=== PATIENT | female | born 1955 | race African-American/Black ===

== ENCOUNTER 2021-04-02 19:47 | Inpatient (IN) | payer OTHER, SELFPAY ==
--- NOTE | ~2021-04-02 | XR_ITS ---
XR chest 1V portable 04/06/2021 10:02 Indication: CHF. Shortness of breath. Procedure: AP portable chest Comparison: 04/02/2021 Findings: Moderate cardiomegaly with pulmonary vascular congestion. There is right basilar atelectasi s. No significant effusion or pneumothorax. No acute osseous abnormality. Impression: 1: Cardiomegaly with pulmonary vascular congestion. 2: Right basilar atelectasis. Reviewed, dictated and finalized at location A. Impression: 1: Cardiomegaly with pulmonary vascular congestion. 2: Right basilar atelectasis.
--- NOTE | ~2021-04-02 | XR_ITS ---
XR chest 2V DATE: 04/11/2021 09:11 INDICATION: Shortness of breath. COPD. TECHNIQUE: AP and lateral views COMPARISON: 04/06/2021 portable AP chest 08/26/2017 two-view chest 08/20/2017 CT pulmonary scan FINDINGS: There is bilateral hyperinflation. There is mild infiltrate or atelectasis at the lung base s, left greater than right. The lungs otherwise appear clear. No pleural effusion or pneumothorax. There is chronic severe cardiomegaly. There is aortic arch calcification. IMPRESSION: Severe cardiomegaly Mild infiltrate or atelectasis in the lung zones, left greater than right Reviewed, dictated and finalized at location A.
--- NOTE | ~2021-04-02 | CT_ITS ---
EXAMINATION: CT brain wo con DATE: 04/05/2021 12:16 INDICATION: Headache. Vision change. TECHNIQUE: Computed tomography (CT) of the head was performed without intravenous contrast. The mA wa s adjusted according to patient size. Iterative reconstruction technique was employed. The dose-lengt h product was 605.33 mGy-cm. COMPARISON: None FINDINGS: There is no intracranial hemorrhage, acute infarction, or abnormal intracranial mass lesion . There are scattered areas of low attenuation in the cerebral white matter, which is within normal l imits for the patient's age. The ventricles are normal in size. The orbits are normal. There is mucos al thickening in the paranasal sinuses including near complete opacification of left maxillary sinus. There is thickening and sclerosis of the bo of left maxillary sinus, consistent with chronic sinu sitis. The mastoid air cells are normal. The orbits are normal. IMPRESSION: 1. Normal aging brain. 2. Chronic sinusitis. Reviewed, dictated and finalized at location B.
--- NOTE | ~2021-04-02 | XR_ITS ---
EXAMINATION: XR chest 2V DATE: 04/02/2021 21:14 INDICATION: Chest pain, shortness of breath and congestive heart failure. TECHNIQUE: frontal and lateral views of the chest were obtained. COMPARISON: Chest radiograph dated 08/26/2017 FINDINGS: Moderate cardiomegaly with pulmonary vascular congestion. Small bilateral pleural effusions. No defin itive pulmonary edema. No pneumothorax. Atherosclerotic aorta. Mild thoracic spondylosis. IMPRESSION: 1. Moderate cardiomegaly with pulmonary vascular congestion but without lynn pulmonary edema. 2. Small bilateral pleural effusions. Reviewed, dictated and finalized at location A. IMPRESSION: 1. Moderate cardiomegaly with pulmonary vascular congestion but without lynn p ulmonary edema. 2. Small bilateral pleural effusions.
--- NOTE | 2021-04-02 20:44 | ECG_ITS ---
Measurements Intervals [place] Rate: 87 P: MA: 0 QRS: 176 QRSD: 106 T: 98 QT: 400 QTc: 483 Interpretive Statements ATRIAL FIBRILLATION INCOMPLETE RIGHT BUNDLE BRANCH BLOCK LOW VOLTAGE- DIFFUSE LEADS POOR R WAVE PROGRESSION, ANTERIOR LEADS BORDERLINE T WAVE ABNORMALITY- ANT/HIGH LAT LEADS BASELINE WANDER- I, II ABNORMAL ECG Electronically Signed On 04-03-2021 6:08:14 CDT by Michel Hare D.O.
[2021-04-02 20:45] VITALS: PULSE 58; RESP 18; TEMP 36.6; O2SAT 100
[2021-04-02 21:21] LABS: Basophils Percent Auto 0.2 % (0.2-1.2); Hematocrit 23.8 % (37.0-47.0); Immature Granulocyte Absolute 0.01 K/mm3 (0.00-0.031); Immature Granulocyte Percent A 0.2 % (0-0.5); Lymphocytes Absolute Auto 0.64 K/mm3 (0.9-3.2); Lymphocytes Percent Auto 12.7 % (18.3-44.2); Mean Corpuscular HGB Conc 28.6 g/dl (32-36); Mean Corpuscular Hemoglobin 28.9 pg (26-34); Mean Corpuscular Volume 101.3 fl (80-100); Mean Platelet Volume 9.5 fl (7.4-10.4); Monocytes Absolute Auto 0.4 K/mm3 (0.1-0.6); Neutrophils Percent Auto 78.9 % (45.5-73.1); Platelet Count Result 175 k/mm3 (150-375); Red Blood Count 2.35 M/mm3 (4.2-5.4); Red Cell Distribution Width 16.1 % (11.5-14.5)
[2021-04-02 21:30] LABS: INR 1.2; Prothrombin Time 15.2 Seconds (11.1-14.7)
[2021-04-02 21:31] LABS: Partial Thromboplastin Time 36.5 SECONDS (22.3-36.8)
[2021-04-02 21:37] LABS: Anion Gap 4 mmol/L (8-16); Blood Urea Nitrogen 62 mg/dL (7-17); Calcium 9.2 mg/dL (8.4-10.2); Carbon Dioxide 37 mmol/L (22-30); Chloride 99 mmol/L (98-107); Estimated Glomerular Filt Rate 37; Glucose 97 mg/dL (65-110); Potassium 4.2 mmol/L (3.4-5.0); Sodium 140 mmol/L (137-145)
[2021-04-02 21:48] LABS: Troponin I 0.034 ng/mL (0.000-0.034)
[2021-04-02 21:50] LABS: Hemoglobin 6.8 g/dL (12.0-15.0); Platelet Estimate Adequate (Adequate)
[2021-04-02 21:51] LABS: Hypochromasia 1+ (NORMAL)
--- NOTE | 2021-04-02 23:31 | PC.NURSE ---
Assumed care of pt at this time. Pt alert and upright on stretcher, A&Ox4.
[2021-04-02 23:32] VITALS: BP 113/60; PULSE 82; RESP 20; O2SAT 100
--- NOTE | 2021-04-02 23:52 | ED.SOB ---
HPI - SOB/Dyspnea General Chief Complaint: Chest Pain Stated Complaint: Lower extremity swelling, headache Time Seen by Provider: 04/02/21 22:55 Source: patient Limitations: clinical condition History of Present Illness HPI Narrative: 65-year-old female Poor historian, does not know her medications, did not bring them with her, not sure what her exact medical diagnoses are Her only records here from about 4 years ago and include CHF with a EF of 45 to 50% and atrial fibrillation She does have a doctor at [place] and it sounds like she may have been hospitalized there recently, she says that she was found recently to have anemia and she thought some polyps in her stomach which they attempted to address but were unsuccessful in doing so to the best of her knowledge Here her lithographic printing machinist had been Dr. Rao who is apparently unfortunately no longer on staff She notes that she has been more short of breath both at rest and with exertion and his swollen up a great deal more than is typical for her She does not recall having had any chest pains and does not complain of a fever or cough Related Data Home Medications Medication Instructions Recorded Confirmed Unable to Obtain Home Medications 04/02/21 Allergies Allergy/AdvReac Type Severity Reaction Status Date / Time ceftriaxone Allergy Severe Anaphylactic Verified 04/02/21 23:35 Shock Review of Systems Review of Systems: All systems reviewed & are unremarkable except as noted in HPI and below Constitutional: Constitutional: Denies chills, Reports fatigue, Denies fever(s) and Reports weakness Cardiovascular: Cardiovascular: Denies chest pain Respiratory: Respiratory: Reports chest congestion, Denies cough, Reports dyspnea and Reports wheezing Gastrointestinal: Gastrointestinal: Denies diarrhea, Denies nausea and Denies vomiting Musculoskeletal: Musculoskeletal: Reports myalgias and Reports joint swelling Neurologic: Denies headache(s) and Denies focal weakness Exam Const: General: cooperative, alert and ill appearing Nutritional Appearance: obese HENMT: Head: normal to inspection, normocephalic, atraumatic, no contusions and no hematomas Ears: external ears normal General nose exam: no epistaxis Eyes: Conjunctivae: conjunctivae normal EOM: EOMs intact bilaterally Neck: Neck: normal visual inspection, supple and no JVD Resp: Effort & Inspection: not labored Auscultation: rales, no rhonchi, wheezes and other (BS =) Cardio: Rhythm: abnormal rhythm irregularly irregular Heart sounds: no murmurs GI: GI Palp: Yes Soft to palpation, No Tenderness to palpation present (GI) and No Guarding due to palpation present (GI) Skin: General skin exam: normal color and no rashes or lesions noted Neuro: General: moves all extremities Speech: normal speech Extrem: Other: General Arti Alee with 3-4+ edema of both legs presacral edema may be even trace edema of her lower arms Psych: Affect: normal affect Course Vital Signs Vital signs: Vital Signs Temperature 36.6 C 04/02/21 20:45 Pulse Rate 58 L 04/02/21 20:45 Respiratory Rate 18 04/02/21 20:45 Pulse Oximetry 100 04/02/21 20:45 Temperature 36.6 C 04/02/21 20:45 Pulse Rate 82 04/02/21 23:32 Respiratory Rate 20 04/02/21 23:32 Blood Pressure 113/60 04/02/21 23:32 Pulse Oximetry 100 04/02/21 23:32 MDM - SOB/Dyspnea Lab Data Result diagrams: 04/02/21 21:00 04/02/21 21:00 Labs: Lab Results 04/02/21 04/02/21 04/02/21 Range/Units 21:00 21:00 21:00 WBC 5.0 (4.5-10.0) K/mm3 RBC 2.35 L (4.2-5.4) M/mm3 Hgb 6.8 L* (12.0-15.0) g/dL Hct 23.8 L (37.0-47.0) % MCV 101.3 H (80-100) fl MCH 28.9 (26-34) pg MCHC 28.6 L (32-36) g/dl RDW 16.1 H (11.5-14.5) % Plt Count 175 (150-375) k/mm3 MPV 9.5 (7.4-10.4) fl Immature Gran % (Auto) 0.2 (0-0.5) % Neut % (Auto) 78.9 H (45.5-73.1)
[2021-04-03] VITALS (17 sets, daily range): BP systolic 103–132; BP diastolic 61–79; PULSE 73–90; RESP 18–19; TEMP 36–36.4; O2SAT 95–100; BMI 36.6
[2021-04-03] MEDS: BUMETANIDE INJ 1 MG/4 ML VIAL 2 MG IV PUSH
--- NOTE | 2021-04-03 | ECHO_ITS ---
Patient Info Name: Thelma Johnson Age: 65 years : 1955 Gender: Female Ht: 64 in Wt: 213 lbs BSA: 2.13 m2 HR: 72 bpm BP: 144 / 73 mmHg Heart Rhythm: Atrial Fibrillation Technical Quality: Good Exam Date: 04/03/2021 12:55 PM Exam Location: [facility] Pulmonary Exam Room: 348 Patient Status: Outpatient Admit Date: 04/03/2021 Staff Ordering Physician: Taylor Mills MD Hydrometer Finisher: Jacqueline Alvarenga RDCS Attending Provider: Boyd Vazquez MD Referring Physician: Gene MILLS; Exam Type: CA echo doppler color flow Study Info Indications R60.9 - Edema, unspecified R06.02 - Shortness of breath - AFIB Complete two-dimensional, color flow and Doppler transthoracic echocardiogram is performed. Summary 1. Complete two-dimensional, color flow and Doppler transthoracic echocardiogram is performed. 2. Normal left ventricular size and thickness. Abnormal septal motion secondary to pulmonary hypertension with flattening of the septum during systole and diastole. No focal wall motion abnormality seen. Visual estimated ejection fraction is 50-55%, measured is 42%. Diastolic dysfunction, grade 2, is present. 3. Right ventricular chamber dimension is severely enlarged with moderate hypokinesis. . 4. Left atrial chamber dimension is severely enlarged. 5. Right atrial chamber dimension is severely enlarged. 6. There is mild mitral valve regurgitation. 7. There is mild pulmonic regurgitation. 8. There is severe tricuspid valve regurgitation. 9. Severe pulmonary hypertension, estimated pulmonary arterial systolic pressure is 67 mmHg. 10. Dilated inferior vena cava with no collapse upon inspiration consistent with significantly elevated right atrial pressure, 10 mmHg. 11. There is small pericardial effusion, primarily posteriorly, measuring in general 0.8-1.2 cm thick with a pocket of 1.9 cm thickness near the right atrium. No evidence of tamponade. 12. Atrial fibrillation. Left Ventricle Left ventricular chamber dimension is normal. Left ventricular systolic function is normal, estimated at 50-55%. There is no increased left ventricular wall thickness. Left ventricular septal wall motion is normal. The left ventricular diastolic function is grade II diastolic dysfunction. Right Ventricle Right ventricular chamber dimension is severely enlarged with moderate hypokinesis. . Right ventricular systolic function is reduced. Left Atria Left atrial chamber dimension is severely enlarged. Right Atria Right atrial chamber dimension is severely enlarged. Aortic Valve The aortic valve is trileaflet. There is no aortic valve sclerosis. There is no aortic valve stenosis. There is no aortic valve regurgitation. Pulmonic Valve The pulmonic valve is normal. There is no pulmonic valve stenosis. There is mild pulmonic regurgitation. Mitral Valve The mitral valve has thickened leaflets. There is no mitral valve stenosis. There is mild mitral valve regurgitation. Tricuspid Valve The tricuspid valve leaflets are normal. There is no significant tricuspid valve stenosis. There is severe tricuspid valve regurgitation. Severe pulmonary hypertension, estimated pulmonary arterial systolic pressure is 67 mmHg. Pericardium/Pleural The pericardium appears normal. There is small pericardial effusion, primarily posteriorly, measuring in general 0.8-1.2 cm thick with a pocket of 1.9 cm thickness near the right atrium. No evidence of tamponade.
--- NOTE | 2021-04-03 01:05 | PC.NURSE ---
Report given to Tisha LAMB on Med/Surg. Room still being cleaned, floor will call when room is ready.
--- NOTE | 2021-04-03 01:45 | ADMGEN ---
This patient, Thelma Johnson, was admitted to Medical Room 348-01. Patient/family oriented to hospital policies and general routines including ID bracelet, bed and alarms, visiting hours, pain management, procedures, bathroom and other care routines, personal items, smoking policy, room service/diet, and visiting hours. Information on how to activate the Rapid Response Team has been discussed. Patient/Family are encouraged to report perceived risks to care and to ask questions if they do not understand what they are told or what they should do.
[2021-04-03 01:57] LABS: Alanine Aminotransferase 8 U/L (4-35); Albumin Level 3.9 g/dL (3.5-5.1); Alkaline Phosphatase 134 U/L (38-126); Aspartate Amino Transferase 31 U/L (14-36); Bilirubin,Total 0.9 mg/dL (0.2-1.3)
[2021-04-03 02:06] LABS: NT Pro B Type Natriuretic Pept 13200 pg/mL (5-100)
[2021-04-03 03:26] LABS: Troponin I 0.031 ng/mL (0.000-0.034)
--- NOTE | 2021-04-03 06:16 | PM.IMHP ---
H&P: HPI History of Present Illness Date/Time: 04/03/21 06:16 Chief Complaint: shortness of breath Narrative: 65-year-old female who presents to the ER today with increasing shortness of breath and leg swelling. She states she has not been feeling well for quite some time and because of worsening shortness of breath she has not been ambulatory as much. She also states she gets chest tightness on and off. She has history of congestive heart failure with ejection fraction of 45-50% and chronic atrial fibrillation sees Dr. Stiles. patient is a poor historian. She was recently admitted at [facility] for anemia as well and she has received transfusion. In the ER she was noted to have hemoglobin of 6.8 and creatinine 1[place]7 [place] [address] she is getting admitted for further evaluation management. Review of Systems Review of Systems: - CONSTITUTIONAL: Denies weight loss, fever and chills. - HEENT: Denies changes in vision and hearing - RESPIRATORY: reports SOB and denies cough. - CV: Denies palpitations and reports CP. - GI: Denies abdominal pain, nausea, vomiting and diarrhea. - : Denies dysuria and urinary frequency. - MSK: Denies myalgia and joint pain. - SKIN: Denies rash and pruritus. - NEUROLOGICAL: Denies headache and syncope. - PSYCHIATRIC: Denies recent changes in mood. Denies anxiety and depression. All systems reviewed & are unremarkable except as noted in HPI and below Constitutional: Constitutional: Reports fatigue and Reports weakness Neurologic: Reports weakness Endocrine: Endocrine: Reports fatigue [facility] Past Medical History Medical History (Updated 04/03/21 @ 15:25 by Taylor Mills MD) Adrenal insufficiency longstanding, takes home steroids Chronic atrial fibrillation Chronic diastolic CHF (congestive heart failure) Chronic kidney disease, stage 3 Cirrhosis COPD (chronic obstructive pulmonary disease) History of TIA (transient ischemic attack) Iron deficiency anemia endoscopy 01/2021 at [place] showed gastric and colonic angioectasias. 6 units packed cells that admission, Eliquis discontinued. Pulmonary hypertension Family History Family History Other Acute myocardial infarction Mother Lung cancer Hypertension Father Throat cancer Hypertension Sibling Hypertension Sibling Hypertension Sibling Hypertension Grandparent Diabetes mellitus Social History Social History (Updated 04/03/21 @ 15:14 by Taylor Mills MD) Social History: lives with her daughter and grandchildren. Four children but 1, with multiple sclerosis, of an overdose. Smoking packs per day: 1 Smoking cigarettes per day: 20.0 Years smoked: 47 Smoking pack-years: 47.00 Smoking status: Current every day smoker Tobacco type: cigarettes Alcohol intake: never Substance use: never Substance use type: does not use Gender identity (if verbalized by the patient): Female Sexual Orientation (if Verbalized by the Patient): Straight or Heterosexual Spiritual care concerns: No Meds Home Medications and Allergies Home Medications Medication Instructions Recorded Confirmed Type acetaminophen 500 mg PO Q6H PRN 04/03/21 04/03/21 History albuterol sulfate 2 puff INHALATION QID PRN 04/03/21 04/03/21 History allopurinol 100 mg PO DAILY 04/03/21 04/03/21 History budesonide-formoterol [Symbicort] 2 puff INHALATION BID 04/03/21 04/03/21 History bumetanide 1 mg PO DAILY 04/03/21 04/03/21 History ferrous sulfate [FeroSul] 325 mg PO DAILY 04/03/21 04/03/21 History folic acid 1 mg PO DAILY 04/03/21 04/03/21 History hydrocortisone 10 mg PO BID 04/03/21 04/03/21 History ipratropium bromide [Atrovent HFA] 2 puff INHALATION QID 04/03/21 04/03/21 History metoprolol succinate [Toprol XL] 25 mg PO DAILY 04/03/21 04/03/21 History midodrine 5 mg PO TIDWM 04/03/21 04/03/21 History pantoprazole 40 mg PO DAILY 08
[2021-04-03] MEDS: BUMETANIDE INJ 1 MG/4 ML VIAL IV PUSH ×2 (06:49→18:24)
[2021-04-03] MEDS: ACETAMINOPHEN 500 MG TABLET PO ×2 (06:57→18:37)
[2021-04-03 08:35] LABS: Immature Reticulocyte Fraction 12.8 % (3.0-15.9); Reticulocyte Hemoglobin Conten 27.8 pg (28.2-35.7); Reticulocyte Percent 1.58 % (0.7-4.3); Reticulocytes Absolute 0.03 B/L (32.2-175.7)
[2021-04-03 09:10] LABS: Iron 26 ug/dL (37-170)
[2021-04-03 09:11] LABS: Bilirubin,Total 0.6 mg/dL (0.2-1.3)
[2021-04-03] MEDS: allopurinoL 100 MG TABLET PO (09:19)
[2021-04-03] MEDS: FOLIC ACID 1 MG TABLET PO (09:19)
[2021-04-03] MEDS: HYDROCORTISONE 10 MG TABLET PO ×2 (09:19→18:24)
[2021-04-03] MEDS: POTASSIUM CHLORIDE 20 MEQ TABLET.ER PO (09:19)
[2021-04-03] MEDS: FERROUS SULFATE 324 MG TABLET PO (09:19)
[2021-04-03] MEDS: MIDODRINE HCL 2.5 MG TABLET 5 MG PO ×3 (09:19→18:24)
[2021-04-03] MEDS: PANTOPRAZOLE SODIUM IV 40 MG VIAL IV PUSH (09:20)
[2021-04-03] MEDS: METOPROLOL SUCCINATE EXT REL 25 MG TABCR PO (09:20)
[2021-04-03 09:21] LABS: Percent Iron Saturation 9 % (20-50)
[2021-04-03] MEDS: SALINE 0.65% NAS SOLN 44 ML BTL 2 SPRAY NASAL ×4 (09:21→20:02)
[2021-04-03 11:55] LABS: Lactate Dehydrogenase 414 U/L (313-618)
--- NOTE | 2021-04-03 13:47 | PM.CNCAR ---
Assessment and Plan Assessment and plan (1) Acute on chronic diastolic CHF (congestive heart failure): Code(s): I50.33 - Acute on chronic diastolic (congestive) heart failure Status: Acute Assessment and Plan: Patient says she has been compliant with her diuretic and medications. Agree with IV Bumex Daily BMP Echo pending DVT prophylaxis with SCDs (2) Pulmonary hypertension: Code(s): I27.20 - Pulmonary hypertension, unspecified Status: Acute Assessment and Plan: Also has right heart failure and a history of severe pulmonary hypertension. Denies a history of sleep apnea. New echo pending. ApneaLink (3) COPD (chronic obstructive pulmonary disease): Code(s): J44.9 - Chronic obstructive pulmonary disease, unspecified Status: Acute Assessment and Plan: On home O2. Unfortunately continues to smoke. (4) Chronic atrial fibrillation: Code(s): I48.20 - Chronic atrial fibrillation, unspecified Status: Acute Assessment and Plan: Rate controlled with metoprolol succinate 25 mg daily. Eliquis discontinued in January due to severe anemia and GI bleeding. Patient continues to have significant anemia so we will avoid anticoagulation. (5) Chronic kidney disease, stage 3: Code(s): N18.30 - Chronic kidney disease, stage 3 unspecified Status: Acute Assessment and Plan: Daily BMP (6) Iron deficiency anemia: Code(s): D50.9 - Iron deficiency anemia, unspecified Status: Acute Assessment and Plan: Follow H&H (7) Chest discomfort: Code(s): R07.89 - Other chest pain Status: Acute Assessment and Plan: Has atypical chest discomfort likely due to CHF. Minimally elevated troponin, flat profile, due to CHF, no evidence of ischemic event or ACS. (8) Adrenal insufficiency: Code(s): E27.40 - Unspecified adrenocortical insufficiency Status: Acute Assessment and Plan: Has a longstanding history of adrenal insufficiency treated with hydrocortisone 10 mg b.i.d. continue steroids. (9) Low blood pressure: Code(s): I95.9 - Hypotension, unspecified Status: Acute Assessment and Plan: History of low blood pressure requiring midodrine. History of Present Illness History of Present Illness Consult date/time: 04/03/21 13:47 Consult reason: congestive heart failure Reason For Visit: chf, anemia Narrative: Date of service 04/03/2021 Thelma Johnson is a 65-year-old female whom I was asked to see at the request of the hospitalist for my advice and opinion regarding her CHF, in consultation. She is normally followed by Dr. Ozuna for her heart problems. Apparently she has a history of diastolic CHF and ejection fraction of 45-50% (EF 10/2020 was 64%) as well as chronic atrial fibrillation. The patient is a poor historian. She has chronic edema and shortness of breath with worsening edema recently, and worsening shortness of breath and a cough for 2 days. No fevers. She has had some chest pressure and heaviness which comes and goes. She states that she has not run out of any medications and is compliant with her diuretic, torsemide 20 mg daily. She follows a low-salt diet and does not drink excessive fluids. She has not noted any bleeding recently. She is on chronic home O2 at 2 L. No known sleep apnea. Old records reviewed. 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
[2021-04-03] MEDS: ALBUTEROL SULFATE (*SP) AEROSOL 1 PUFF 2 PUFF INHALATION (14:29)
--- NOTE | 2021-04-03 17:29 | P.PNIM_ITS ---
Progress Note: A&P Assessment and Plan (1) CHF (congestive heart failure): Qualifiers: Heart failure chronicity: acute on chronic Heart failure type: combined systolic and diastolic Qualified Code(s): I50.43 - Acute on chronic combined systolic (congestive) and diastolic (congestive) heart failure Code(s): I50.9 - Heart failure, unspecified Status: Acute Assessment and Plan: * Acute on chronic diastolic and systolic heart failure in exacerbation * 4+ pitting edema up to the groin bilaterally * increased shortness of breath * Fluid restriction * BNP 85691 * Echo EF 50-55 measured 42%, grade 2 diastolic dysfunction, severe pulm HTN * Bumex 2mg IV BID * Strict I&O * Consider urinary catheter * BSC * supplemental oxygen * Cardiology consult--thank you for your recommendations (2) Anemia: Qualifiers: Anemia type: iron deficiency Iron deficiency anemia type: unspecified iron deficiency Qualified Code(s): D50.9 - Iron deficiency anemia, unspecified Code(s): D64.9 - Anemia, unspecified Status: Acute Assessment and Plan: * H/H 6.8/23.8, MCV 101.3 * Probably dilutional as well considering the fluid overload * One unit PRBC (04/03/21) * Occult blood positive * GI consult thank you for your recommendation * Trend H/H * Anemia labs iron 26, TIBC 295, % sat 9, LDH 414, VB12 354, Folate 7.2 * Ferrous sulfate 325mg PO BID * Labs in the am (3) Chest pain: Code(s): R07.9 - Chest pain, unspecified Status: Acute Assessment and Plan: * Type 2 TX- non ischemic, probably related to CHF exacerbation, anemia * Trops mildly elevated * Cardiology consult * seems to be resolved at this time * Tele monitor (4) Gout: Code(s): M10.9 - Gout, unspecified Status: Acute Assessment and Plan: * will check uric acid * continue home allopurinol 100mg PO daily * monitor (5) COPD (chronic obstructive pulmonary disease): Code(s): J44.9 - Chronic obstructive pulmonary disease, unspecified Status: Acute Assessment and Plan: * Continues to smoke 1ppd * chronic respiratory failure with hypoxia * 2LNC at home * Continue home symibcort 2 puff BID, albuterol 2 puff QID PRN * Not in acute exacerbation at this time * Trend sputum * consider sputum culture (6) Acute on chronic renal failure: Code(s): N17.9 - Acute kidney failure, unspecified; N18.9 - Chronic kidney disease, unspecified Status: Acute Assessment and Plan: * BUN/Cr 62/1.70 * fluid overloaded * Trend BUN/Cr will being diuresed * Bumex 2mg IV BID * consider nephrology with worsening renal function Time Spent With Patient Time with patient: Greater than 35 minutes Subjective Date/time seen: 04/03/21 16:45 Interval history: 65-year-old female who presents to the ER today with increasing shortness of breath and leg swelling. she states that she is doing a little bit better today. She still is short of breath she said and does not think that she could get to commode on her own. She also stated that she has a headache. She also states that she has a cough which is producing a yellow thick sputum which she states is more than normal. She also stated that she is having more than normal increased swelling in bilateral lower extremities and shortness of breath is getting worse. She does continue smoke. She also states states that her legs hurt. She also st
--- NOTE | 2021-04-03 17:29 | PM.IMPN ---
Progress Note: A&P Assessment and Plan (1) CHF (congestive heart failure): Qualifiers: Heart failure chronicity: acute on chronic Heart failure type: combined systolic and diastolic Qualified Code(s): I50.43 - Acute on chronic combined systolic (congestive) and diastolic (congestive) heart failure Code(s): I50.9 - Heart failure, unspecified Status: Acute Assessment and Plan: Acute on chronic diastolic and systolic heart failure in exacerbation 4+ pitting edema up to the groin bilaterally increased shortness of breath Fluid restriction BNP 91383 Echo EF 50-55 measured 42%, grade 2 diastolic dysfunction, severe pulm HTN Bumex 2mg IV BID Strict I&O Consider urinary catheter BSC supplemental oxygen Cardiology consult--thank you for your recommendations (2) Anemia: Qualifiers: Anemia type: iron deficiency Iron deficiency anemia type: unspecified iron deficiency Qualified Code(s): D50.9 - Iron deficiency anemia, unspecified Code(s): D64.9 - Anemia, unspecified Status: Acute Assessment and Plan: H/H 6.8/23.8, MCV 101.3 Probably dilutional as well considering the fluid overload One unit PRBC (04/03/21) Occult blood positive GI consult thank you for your recommendation Trend H/H Anemia labs iron 26, TIBC 295, % sat 9, LDH 414, VB12 354, Folate 7.2 Ferrous sulfate 325mg PO BID Labs in the am (3) Chest pain: Code(s): R07.9 - Chest pain, unspecified Status: Acute Assessment and Plan: Type 2 TN- non ischemic, probably related to CHF exacerbation, anemia Trops mildly elevated Cardiology consult seems to be resolved at this time Tele monitor (4) Gout: Code(s): M10.9 - Gout, unspecified Status: Acute Assessment and Plan: will check uric acid continue home allopurinol 100mg PO daily monitor (5) COPD (chronic obstructive pulmonary disease): Code(s): J44.9 - Chronic obstructive pulmonary disease, unspecified Status: Acute Assessment and Plan: Continues to smoke 1ppd chronic respiratory failure with hypoxia 2LNC at home Continue home symibcort 2 puff BID, albuterol 2 puff QID PRN Not in acute exacerbation at this time Trend sputum consider sputum culture (6) Acute on chronic renal failure: Code(s): N17.9 - Acute kidney failure, unspecified; N18.9 - Chronic kidney disease, unspecified Status: Acute Assessment and Plan: BUN/Cr 62/1.70 fluid overloaded Trend BUN/Cr will being diuresed Bumex 2mg IV BID consider nephrology with worsening renal function Time Spent With Patient Time with patient: Greater than 35 minutes Subjective Date/time seen: 04/03/21 16:45 Interval history: 65-year-old female who presents to the ER today with increasing shortness of breath and leg swelling. she states that she is doing a little bit better today. She still is short of breath she said and does not think that she could get to commode on her own. She also stated that she has a headache. She also states that she has a cough which is producing a yellow thick sputum which she states is more than normal. She also stated that she is having more than normal increased swelling in bilateral lower extremities and shortness of breath is getting worse. She does continue smoke. She also states states that her legs hurt. She also states she is dizzy and that her head is spinning. Otherwise patient states she feels good she has no chest pain, palpitations, nausea vomiting. Review of Systems Review of Systems: All systems reviewed & are unremarkable except as noted in HPI and below Exam Const: General: cooperative, healthy appearing, no acute distress, well developed, alert and awake Nutritional Appearance: well nourished Orientation/consciousness: patient oriented x3 Limitations: no limitations HENMT: Head: loyd
[2021-04-03 18:57] LABS: Folic Acid 7.2 ng/mL (2.76->20)
[2021-04-04] VITALS (20 sets, daily range): BP systolic 103–127; BP diastolic 52–70; PULSE 65–98; RESP 14–20; TEMP 36.1–37.2; O2SAT 95–100
[2021-04-04 06:13] LABS: Basophils Percent Auto 0.4 % (0.2-1.2); Hematocrit 21.3 % (37.0-47.0); Immature Granulocyte Absolute 0.01 K/mm3 (0.00-0.031); Immature Granulocyte Percent A 0.2 % (0-0.5); Lymphocytes Absolute Auto 0.62 K/mm3 (0.9-3.2); Lymphocytes Percent Auto 13.1 % (18.3-44.2); Mean Corpuscular HGB Conc 29.1 g/dl (32-36); Mean Corpuscular Volume 99.5 fl (80-100); Mean Platelet Volume 9.6 fl (7.4-10.4); Monocytes Absolute Auto 0.5 K/mm3 (0.1-0.6); Monocytes Percent Auto 10.1 % (2.6-8.5); Neutrophils Absolute Auto 3.6 K/mm3 (1.3-6.7); Neutrophils Percent Auto 76.2 % (45.5-73.1); Platelet Count Result 164 k/mm3 (150-375); Red Blood Count 2.14 M/mm3 (4.2-5.4); Red Cell Distribution Width 15.7 % (11.5-14.5); White Blood Count 4.7 K/mm3 (4.5-10.0)
[2021-04-04 06:18] LABS: Hemoglobin 6.2 g/dL (12.0-15.0)
[2021-04-04 06:30] LABS: Anion Gap 4 mmol/L (8-16); Blood Urea Nitrogen 63 mg/dL (7-17); Calcium 8.9 mg/dL (8.4-10.2); Carbon Dioxide 35 mmol/L (22-30); Chloride 97 mmol/L (98-107); Estimated CRCL calculation 31 ml/min; Estimated Glomerular Filt Rate 32; Glucose 106 mg/dL (65-110); Potassium 4.4 mmol/L (3.4-5.0); Sodium 136 mmol/L (137-145)
[2021-04-04] MEDS: ALBUTEROL SULFATE (*SP) AEROSOL 1 PUFF 2 PUFF INHALATION (07:20)
[2021-04-04 07:26] LABS: IFOB Positive Control Positive; Immunochemical Fecal Occult Bl Positive (N)
--- NOTE | 2021-04-04 07:29 | P.PNIM_ITS ---
Progress Note: A&P Assessment and Plan (1) CHF (congestive heart failure): Qualifiers: Heart failure chronicity: acute on chronic Heart failure type: combined systolic and diastolic Qualified Code(s): I50.43 - Acute on chronic combined systolic (congestive) and diastolic (congestive) heart failure Code(s): I50.9 - Heart failure, unspecified Status: Acute Assessment and Plan: * Acute on chronic diastolic and systolic heart failure in exacerbation * 4+ pitting edema up to the groin bilaterally * increased shortness of breath * Fluid restriction * BNP 37979 (04/03/21) * Echo EF 50-55 measured 42%, grade 2 diastolic dysfunction, severe pulm HTN * Bumex 2mg IV BID * Strict I&O * Consider urinary catheter * BSC * supplemental oxygen * Cardiology consult--thank you for your recommendations (2) Anemia: Qualifiers: Anemia type: iron deficiency Iron deficiency anemia type: unspecified iron deficiency Qualified Code(s): D50.9 - Iron deficiency anemia, unspecified Code(s): D64.9 - Anemia, unspecified Status: Acute Assessment and Plan: * H/H 6.2/21.3, MCV 99.5 * Probably dilutional as well considering the fluid overload * One unit PRBC (04/03/21-04-04-21) * Occult blood positive * GI consult thank you for your recommendation * Trend H/H * Anemia labs iron 26, TIBC 295, % sat 9, LDH 414, VB12 354, Folate 7.2 * Ferrous sulfate 325mg PO BID * Labs in the am (3) Chest pain: Code(s): R07.9 - Chest pain, unspecified Status: Acute Assessment and Plan: * Type 2 HI- non ischemic, probably related to CHF exacerbation, anemia * Trops negative 0.034, 0.030, 0.031 * Cardiology consult thank you for your recommendations * seems to be resolved at this time * Tele monitor shows afib with a controlled rate (4) Gout: Code(s): M10.9 - Gout, unspecified Status: Acute Assessment and Plan: * uric acid 12.2 * continue home allopurinol 100mg PO daily * monitor (5) COPD (chronic obstructive pulmonary disease): Code(s): J44.9 - Chronic obstructive pulmonary disease, unspecified Status: Acute Assessment and Plan: * Continues to smoke 1ppd * chronic respiratory failure with hypoxia * 2LNC at home * Continue home symibcort 2 puff BID, albuterol 2 puff QID PRN * Not in acute exacerbation at this time * Trend sputum * sputum culture ordered (6) Acute on chronic renal failure: Code(s): N17.9 - Acute kidney failure, unspecified; N18.9 - Chronic kidney disease, unspecified Status: Acute Assessment and Plan: * BUN/Cr 63/1.90 * fluid overloaded * Trend BUN/Cr will being diuresed * Bumex 2mg IV BID * consider nephrology with worsening renal function (7) Smoking addiction: Code(s): F17.200 - Nicotine dependence, unspecified, uncomplicated Status: Acute Assessment and Plan: * smokes 1ppd * Nicotine 21mg transdermal * gum * smoking cessation councelling Additional Plan Subjective Date/time seen: 04/04/21 07:29 Interval history: Patient is a 65-year-old female who presented to the ED for evaluation increasing shortness of breath leg swelling. Patient stated today that her eyes hurt which started a few days ago however they she said they are getting worse. She also stated she still have a headache which I asked her if she thought maybe was relat
--- NOTE | 2021-04-04 07:29 | PM.IMPN ---
Progress Note: A&P Assessment and Plan (1) CHF (congestive heart failure): Qualifiers: Heart failure chronicity: acute on chronic Heart failure type: combined systolic and diastolic Qualified Code(s): I50.43 - Acute on chronic combined systolic (congestive) and diastolic (congestive) heart failure Code(s): I50.9 - Heart failure, unspecified Status: Acute Assessment and Plan: Acute on chronic diastolic and systolic heart failure in exacerbation 4+ pitting edema up to the groin bilaterally increased shortness of breath Fluid restriction BNP 53511 (04/03/21) Echo EF 50-55 measured 42%, grade 2 diastolic dysfunction, severe pulm HTN Bumex 2mg IV BID Strict I&O Consider urinary catheter BSC supplemental oxygen Cardiology consult--thank you for your recommendations (2) Anemia: Qualifiers: Anemia type: iron deficiency Iron deficiency anemia type: unspecified iron deficiency Qualified Code(s): D50.9 - Iron deficiency anemia, unspecified Code(s): D64.9 - Anemia, unspecified Status: Acute Assessment and Plan: H/H 6.2/21.3, MCV 99.5 Probably dilutional as well considering the fluid overload One unit PRBC (04/03/21-04-04-21) Occult blood positive GI consult thank you for your recommendation Trend H/H Anemia labs iron 26, TIBC 295, % sat 9, LDH 414, VB12 354, Folate 7.2 Ferrous sulfate 325mg PO BID Labs in the am (3) Chest pain: Code(s): R07.9 - Chest pain, unspecified Status: Acute Assessment and Plan: Type 2 FL- non ischemic, probably related to CHF exacerbation, anemia Trops negative 0.034, 0.030, 0.031 Cardiology consult thank you for your recommendations seems to be resolved at this time Tele monitor shows afib with a controlled rate (4) Gout: Code(s): M10.9 - Gout, unspecified Status: Acute Assessment and Plan: uric acid 12.2 continue home allopurinol 100mg PO daily monitor (5) COPD (chronic obstructive pulmonary disease): Code(s): J44.9 - Chronic obstructive pulmonary disease, unspecified Status: Acute Assessment and Plan: Continues to smoke 1ppd chronic respiratory failure with hypoxia 2LNC at home Continue home symibcort 2 puff BID, albuterol 2 puff QID PRN Not in acute exacerbation at this time Trend sputum sputum culture ordered (6) Acute on chronic renal failure: Code(s): N17.9 - Acute kidney failure, unspecified; N18.9 - Chronic kidney disease, unspecified Status: Acute Assessment and Plan: BUN/Cr 63/1.90 fluid overloaded Trend BUN/Cr will being diuresed Bumex 2mg IV BID consider nephrology with worsening renal function (7) Smoking addiction: Code(s): F17.200 - Nicotine dependence, unspecified, uncomplicated Status: Acute Assessment and Plan: smokes 1ppd Nicotine 21mg transdermal gum smoking cessation councelling Additional Plan Subjective Date/time seen: 04/04/21 07:29 Interval history: Patient is a 65-year-old female who presented to the ED for evaluation increasing shortness of breath leg swelling. Patient stated today that her eyes hurt which started a few days ago however they she said they are getting worse. She also stated she still have a headache which I asked her if she thought maybe was related to the nicotine withdrawal. She also stated that she is weak and tired had her legs look the same. However she reassured me that her legs would get better. It is noted that her H&H is lower today so GI was consulted. Patient has no complaints of chest pain, nausea, vomiting, diarrhea or constipation. Upon examination patient does look very tired and lethargic. Review of Systems Review of Systems: All systems reviewed & are unremarkable except as noted in HPI and below Exam Const: General: cooperative, healthy appearing, no acu
[2021-04-04] MEDS: BUMETANIDE INJ 1 MG/4 ML VIAL IV PUSH ×3 (08:23→18:04)
[2021-04-04] MEDS: FOLIC ACID 1 MG TABLET PO (08:23)
[2021-04-04] MEDS: MIDODRINE HCL 2.5 MG TABLET 5 MG PO ×3 (08:23→18:04)
[2021-04-04] MEDS: SODIUM CHLORIDE 0.9% IV 250 ML 30 ML IV CONT ×2 (08:23)
[2021-04-04] MEDS: FERROUS SULFATE 324 MG TABLET PO ×2 (08:23→18:04)
[2021-04-04] MEDS: PANTOPRAZOLE SODIUM IV 40 MG VIAL IV PUSH (08:24)
[2021-04-04] MEDS: POTASSIUM CHLORIDE 20 MEQ TABLET.ER PO (08:24)
[2021-04-04] MEDS: METOPROLOL SUCCINATE EXT REL 25 MG TABCR PO (08:24)
[2021-04-04] MEDS: allopurinoL 100 MG TABLET PO (08:24)
[2021-04-04] MEDS: HYDROCORTISONE 10 MG TABLET PO ×2 (08:24→18:05)
[2021-04-04] MEDS: SALINE 0.65% NAS SOLN 44 ML BTL 2 SPRAY NASAL ×4 (08:24→20:52)
[2021-04-04] MEDS: ACETAMINOPHEN 500 MG TABLET PO ×2 (08:25→20:53)
[2021-04-04 09:00] LABS: Uric Acid 12.2 mg/dL (2.5-7.5)
--- NOTE | 2021-04-04 11:21 | WPDGICN ---
Assessment and Plan Assessment and plan (1) Acute on chronic blood loss anemia: Code(s): D62 - Acute posthemorrhagic anemia Status: Acute Assessment and Plan: probably multifactorial, she is on iron but also noted report of AMV in stomach 2 months ago at [facility] continue with protonix will do EGD in 1-2 days, will await until exacerbation chf is improved (2) AVM (arteriovenous malformation) of stomach, acquired: Code(s): K31.819 - Angiodysplasia of stomach and duodenum without bleeding Status: Acute Assessment and Plan: will need another egd again (reviewed records) (3) Occult blood in stools: Code(s): R19.5 - Other fecal abnormalities Status: Acute (4) Acute on chronic diastolic CHF (congestive heart failure): Code(s): I50.33 - Acute on chronic diastolic (congestive) heart failure Status: Acute Assessment and Plan: on treatment by cardiology, also pulmonary htn (5) Chronic atrial fibrillation: Code(s): I48.20 - Chronic atrial fibrillation, unspecified Status: Acute Assessment and Plan: eliquis on hold given recurrent anemia (6) Pulmonary hypertension: Code(s): I27.20 - Pulmonary hypertension, unspecified Status: Acute (7) Acute on chronic renal failure: Code(s): N17.9 - Acute kidney failure, unspecified; N18.9 - Chronic kidney disease, unspecified Status: Acute GI Consult Note Consult date/time: 04/04/21 11:21 Reason for consult: FOBT +, acute on chronic blood loss anemia HPI: Thelma Johnson is a 65 year old female with history of diastolic CHF, COPD, iron deficiency anemia, longstanding adrenal insufficiency on home steroids, TIA, AFib on Eliquis (on hold now), pulmonary HTN, chronic kidney disease stage 3, hepatic cirrhosis with recent hospitalization at [facility] 2 months ago (reviewed records) for chf exacerbation and SCOTT requiring blood transfusion and iv iron. She finally had EGD/SBE and colonoscopy, found to have stigmata of bleeding from AVM in stomach treated with APC, two non-bleeding AVM in colon treated with apc (had poor colon prep) and eliquis was discontinued. She is still taking iron pills and says that stools normally dark. She is here again with worsening shortness of breath and more leg edema. Admitted for chf exacerbation and recurrent anemia, hemoglobin of 6.8 and creatinine 1[place]7 [place] [address]. Now getting again blood transfusion, had FOBT +. Review of Systems Constitutional: Constitutional: Denies chills Eyes: Eyes: Denies blurry vision ENT: Reports Normal hearing present Cardiovascular: Cardiovascular: Reports leg edema Respiratory: Respiratory: Reports dyspnea on exertion Gastrointestinal: Gastrointestinal: Denies abdominal pain Genitourinary: Genitourinary: Denies flank pain Musculoskeletal: Musculoskeletal: Denies neck pain Integumentary/Breasts: Skin/Breast: Denies dry skin Neurologic: Denies headache(s) Psychiatric: Psychiatric: Reports no additional psychiatric complaints [facility] Past Medical History Medical History (Updated 04/04/21 @ 11:31 by Stewart Yanez MD) Acute on chronic blood loss anemia Adrenal insufficiency longstanding, takes home steroids AVM (arteriovenous malformation) of stomach, acquired Chronic atrial fibrillation Chronic diastolic CHF (congestive heart failure) Chronic kidney disease, stage 3 Cirrhosis COPD (chronic obstructive pulmonary disease) History of TIA (transient ischemic attack) Iron deficiency anemia endoscopy 01/2021 at [place] showed gastric and colonic angioectasias. 6 units packed cells that admission, Eliquis discontinued. Occult blood in stools Pulmonary hypertension Family History Family History Other Acute myocardial infarction Mother Lung cancer Hypertension Father Throat cancer Hypertension Sibling Hypertension Sibling Hypertension Sibling
--- NOTE | 2021-04-04 13:09 | PM.PNCARD ---
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 with grade II diastolic LV dysfunction, sever Pulm HTN, sever TR, Acute on chronic anemia, SOB likely multifactorial for prior causes and HX of COPD, CKD, chronic AF not on OAC because of prior GI bleed, Plan cont IV diuresis, correct anemia, poor prognosis Subjective Date/time seen: 04/04/21 13:09 Interval history: continues to feel SOB with midl activity cough is worse today AF with PVCs Review of Systems Review of Systems: All systems reviewed & are unremarkable except as noted in HPI and below Exam Const: General: comfortable and no acute distress Other: Able to lie flat HENMT: General nose exam: Normal nares present and no epistaxis Mouth: Yes moist mucous membranes Eyes: Sclera: sclerae normal Pupils: Equal, round and reactive pupils present Neck: Neck: supple and JVD Carotids: no bruits Resp: Auscultation: clear to auscultation bilaterally, crackles bilateral and diffuse and diminished lung sounds bilateral Other: No chest wall tenderness Cardio: Rate: regular rate Rhythm: regular rhythm Heart sounds: no gallops, Murmur heart sound present (SM at T area) systolic and no rubs GI: GI Palp: Yes Soft to palpation and No Tenderness to palpation present (GI) Auscultation: normal bowel sounds Skin: General skin exam: normal color, rashes and/or lesions noted and no erythema Other: Warm Neuro: Cranial nerves: Yes Equal, round and reactive pupils present Speech: normal speech Other: No obvious focal deficit or facial asymmetry Extrem: General: no edema Other: Normal capillary refills Intact distal pulses. Objective Data Vital Signs Vital Signs: Vital Signs - 24 hr 04/03/21 14:00 04/03/21 16:00 04/03/21 19:26 Temperature 36.0 C L Pulse Rate 85 85 Respiratory Rate 18 Blood Pressure 113/61 Pulse Oximetry 99 99 04/03/21 20:00 04/03/21 20:05 04/03/21 23:05 Temperature 36.2 C L Pulse Rate 73 78 78 Respiratory Rate 18 Blood Pressure 132/79 Pulse Oximetry 100 96 04/03/21 23:35 04/04/21 00:00 04/04/21 04:00 Temperature Pulse Rate 77 76 Respiratory Rate Blood Pressure Pulse Oximetry 97 04/04/21 06:00 04/04/21 07:23 04/04/21 08:19 Temperature 37.1 C 36.1 C L Pulse Rate 80 80 Respiratory Rate 18 14 Blood Pressure 118/57 L 112/52 L Pulse Oximetry 100 97 100 04/04/21 08:24 04/04/21 08:30 04/04/21 09:30 Temperature 36.6 C 36.7 C Pulse Rate 80 84 87 Respiratory Rate 14 18 Blood Pressure 103/55 L 120/69 Pulse Oximetry 100 100 04/04/21 10:30 04/04/21 11:20 04/04/21 12:25 Temperature 36.6 C 36.8 C 36.6 C Pulse Rate 88 80 80 Respiratory Rate 14 16 15 Blood Pressure 114/58 L 122/68 121/70 Pulse Oximetry 100 100 100 Intake/Output Intake/Output: Intake & Output 04/01/21 04/02/21 04/03/21 04/04/21 23:59 23:59 23:59 23:59 Intake Total 745 640 Output Total 550 300 Balance 195 340 Meds/Results Medications: Active Medications Generic Name Dose Route Start Last Admin Trade Name Freq PRN Reason Stop Dose Admin Acetaminophen 500 mg 04/03/21 06:25 04/04/21 08:25 Acetaminophen 500 Mg Tablet PO 500 mg Q6H PRN Administration Pain Albuterol 2 puff 04/03/21 06:25 04/04/21 07:20 Albuterol Sulfate (*Sp) Aerosol 1 Puff INHALATION 2 puff QID PRN Administration Shortness Of Breath Or Wheezing Allopurinol 100 mg 04/03/21 09:00 04/04/21 08:24 Allopurinol 100 Mg Tablet PO 100 mg DAILY FIDEL Administration Budesonide/Formoterol Fumarate 2 puff 04/03/21 08:00 04/04/21 07:20 Budesonide/Form 160-4.5 Mcg (*Sp) INHALATION 2 puff Q12HRT FIDEL Administration Bumetanide 1 mg 04/03/21 06:00 04/04/21 08:23 Bumetanide Inj 1 Mg/4 Ml Vial IV PUSH 1 mg BID FIDEL Administration Ferrous Sulfate 324 mg 04/04/21 08:00 04/04/21 08:26 Ferrous Sulfate 324 Mg Tablet PO Not Given BIDWM [facility] Folic Acid 1 mg 04/03/21
[2021-04-04 18:04] LABS: Hematocrit 27.4 % (37.0-47.0); Hemoglobin 8.4 g/dL (12.0-15.0); Mean Corpuscular HGB Conc 30.7 g/dl (32-36); Mean Corpuscular Hemoglobin 29.2 pg (26-34); Mean Corpuscular Volume 95.1 fl (80-100); Platelet Count Result 165 k/mm3 (150-375); Red Blood Count 2.88 M/mm3 (4.2-5.4); Red Cell Distribution Width 17.2 % (11.5-14.5); White Blood Count 5.1 K/mm3 (4.5-10.0)
[2021-04-04] MEDS: guaiFENesin 12 HR 600 MG TABCR 1200 MG PO (20:51)
[2021-04-05] VITALS (11 sets, daily range): BP systolic 105–125; BP diastolic 58–90; PULSE 77–105; RESP 18–20; TEMP 36.2–37.1; O2SAT 96–100
[2021-04-05 09:26] LABS: Hematocrit 29.9 % (37.0-47.0); Hemoglobin 8.7 g/dL (12.0-15.0); Mean Corpuscular HGB Conc 29.1 g/dl (32-36); Mean Corpuscular Volume 99.7 fl (80-100); Mean Platelet Volume 9.9 fl (7.4-10.4); Platelet Count Result 170 k/mm3 (150-375); Red Cell Distribution Width 17.2 % (11.5-14.5); White Blood Count 5.9 K/mm3 (4.5-10.0)
[2021-04-05 09:44] LABS: Alanine Aminotransferase 10 U/L (4-35); Alkaline Phosphatase 124 U/L (38-126); Anion Gap 4 mmol/L (8-16); Aspartate Amino Transferase 24 U/L (14-36); Bilirubin,Total 0.9 mg/dL (0.2-1.3); Blood Urea Nitrogen 64 mg/dL (7-17); Calcium 9.3 mg/dL (8.4-10.2); Carbon Dioxide 37 mmol/L (22-30); Chloride 98 mmol/L (98-107); Estimated CRCL calculation 34 ml/min; Estimated Glomerular Filt Rate 37; Glucose 104 mg/dL (65-110); Sodium 139 mmol/L (137-145)
[2021-04-05] MEDS: MIDODRINE HCL 2.5 MG TABLET 5 MG PO ×3 (09:55→18:21)
[2021-04-05] MEDS: FERROUS SULFATE 324 MG TABLET PO ×2 (09:55→18:21)
[2021-04-05] MEDS: POTASSIUM CHLORIDE 20 MEQ TABLET.ER PO (09:55)
[2021-04-05] MEDS: HYDROCORTISONE 10 MG TABLET PO ×2 (09:56→18:22)
[2021-04-05] MEDS: allopurinoL 100 MG TABLET PO (09:56)
[2021-04-05] MEDS: BUMETANIDE INJ 1 MG/4 ML VIAL IV PUSH ×2 (09:56→14:55)
[2021-04-05] MEDS: METOPROLOL SUCCINATE EXT REL 25 MG TABCR PO (09:56)
[2021-04-05] MEDS: FOLIC ACID 1 MG TABLET PO (09:56)
[2021-04-05] MEDS: guaiFENesin 12 HR 600 MG TABCR 1200 MG PO ×2 (09:56→21:55)
[2021-04-05] MEDS: PANTOPRAZOLE SODIUM IV 40 MG VIAL IV PUSH (09:57)
[2021-04-05] MEDS: SALINE 0.65% NAS SOLN 44 ML BTL 2 SPRAY NASAL ×4 (09:57→21:55)
--- NOTE | 2021-04-05 10:51 | P.PNIM_ITS ---
Progress Note: A&P Assessment and Plan (1) CHF (congestive heart failure): Qualifiers: Heart failure chronicity: acute on chronic Heart failure type: combined systolic and diastolic Qualified Code(s): I50.43 - Acute on chronic combined systolic (congestive) and diastolic (congestive) heart failure Code(s): I50.9 - Heart failure, unspecified Status: Acute Assessment and Plan: * Acute on chronic diastolic and systolic heart failure in exacerbation * 4+ pitting edema up to the groin bilaterally * increased shortness of breath * Fluid restriction * BNP 64136 (04/03/21) [place] [address] * Echo EF 50-55 measured 42%, grade 2 diastolic dysfunction, severe pulm HTN * Bumex 2mg IV BID * Strict I&O, daily weights * supplemental oxygen maintain a saturation greater than 90% * Cardiology consult--thank you for your recommendations * continue antitussives (2) Anemia: Qualifiers: Anemia type: iron deficiency Iron deficiency anemia type: unspecified iron deficiency Qualified Code(s): D50.9 - Iron deficiency anemia, unspecified Code(s): D64.9 - Anemia, unspecified Status: Acute Assessment and Plan: * H/H 8.7/29.9 * Probably dilutional however stools were dark overnight * One unit PRBC (04/03-) * Occult blood positive * GI consult thank you for your recommendation * Trend H/H * Anemia labs iron 26, TIBC 295, % sat 9, LDH 414, VB12 354, Folate 7.2 * Ferrous sulfate 325mg PO BID * Labs in the am (3) Chest pain: Code(s): R07.9 - Chest pain, unspecified Status: Acute Assessment and Plan: * Type 2 DC- non ischemic, probably related to CHF exacerbation, anemia * Trops negative 0.034, 0.030, 0.031 * Cardiology consult thank you for your recommendations * seems to be resolved at this time * Tele monitor shows afib with a controlled rate (4) Gout: Code(s): M10.9 - Gout, unspecified Status: Acute Assessment and Plan: * uric acid 12.2 * continue home allopurinol 100mg PO daily * monitor (5) COPD (chronic obstructive pulmonary disease): Code(s): J44.9 - Chronic obstructive pulmonary disease, unspecified Status: Acute Assessment and Plan: * Continues to smoke 1ppd * chronic respiratory failure with hypoxia * 2LNC at home * Continue home Symbicort 2 puff BID, albuterol 2 puff QID PRN * Not in acute exacerbation at this time * sputum culture ordered still needs to be collected * Apnea link indicated that patient probably needs a sleep study outpatient (6) Acute on chronic renal failure: Code(s): N17.9 - Acute kidney failure, unspecified; N18.9 - Chronic kidney disease, unspecified Status: Acute Assessment and Plan: * BUN/Cr 64/1.70 trending down * fluid overloaded * Trend BUN/Cr will being diuresed * Bumex 2mg IV BID, one time bumex 1mg at 1200 * consider nephrology with worsening renal function (7) Smoking addiction: Code(s): F17.200 - Nicotine dependence, unspecified, uncomplicated Status: Acute Assessment and Plan: * smokes 1ppd * Nicotine 21mg transdermal * gum * smoking cessation councelling (8) Headache: Code(s): R51.9 - Headache, unspecified Status: Acute Assessment and Plan: * Could be from nicotine withdrawal * Patient reports visual changes as well * Nicotine patch and gum ordered * CT hea
--- NOTE | 2021-04-05 10:51 | PM.IMPN ---
Progress Note: A&P Assessment and Plan (1) CHF (congestive heart failure): Qualifiers: Heart failure chronicity: acute on chronic Heart failure type: combined systolic and diastolic Qualified Code(s): I50.43 - Acute on chronic combined systolic (congestive) and diastolic (congestive) heart failure Code(s): I50.9 - Heart failure, unspecified Status: Acute Assessment and Plan: Acute on chronic diastolic and systolic heart failure in exacerbation 4+ pitting edema up to the groin bilaterally increased shortness of breath Fluid restriction BNP 83418 (04/03/21) [place] [address] Echo EF 50-55 measured 42%, grade 2 diastolic dysfunction, severe pulm HTN Bumex 2mg IV BID Strict I&O, daily weights supplemental oxygen maintain a saturation greater than 90% Cardiology consult--thank you for your recommendations continue antitussives (2) Anemia: Qualifiers: Anemia type: iron deficiency Iron deficiency anemia type: unspecified iron deficiency Qualified Code(s): D50.9 - Iron deficiency anemia, unspecified Code(s): D64.9 - Anemia, unspecified Status: Acute Assessment and Plan: H/H 8.7/29.9 Probably dilutional however stools were dark overnight One unit PRBC (04/03-) Occult blood positive GI consult thank you for your recommendation Trend H/H Anemia labs iron 26, TIBC 295, % sat 9, LDH 414, VB12 354, Folate 7.2 Ferrous sulfate 325mg PO BID Labs in the am (3) Chest pain: Code(s): R07.9 - Chest pain, unspecified Status: Acute Assessment and Plan: Type 2 KS- non ischemic, probably related to CHF exacerbation, anemia Trops negative 0.034, 0.030, 0.031 Cardiology consult thank you for your recommendations seems to be resolved at this time Tele monitor shows afib with a controlled rate (4) Gout: Code(s): M10.9 - Gout, unspecified Status: Acute Assessment and Plan: uric acid 12.2 continue home allopurinol 100mg PO daily monitor (5) COPD (chronic obstructive pulmonary disease): Code(s): J44.9 - Chronic obstructive pulmonary disease, unspecified Status: Acute Assessment and Plan: Continues to smoke 1ppd chronic respiratory failure with hypoxia 2LNC at home Continue home Symbicort 2 puff BID, albuterol 2 puff QID PRN Not in acute exacerbation at this time sputum culture ordered still needs to be collected Apnea link indicated that patient probably needs a sleep study outpatient (6) Acute on chronic renal failure: Code(s): N17.9 - Acute kidney failure, unspecified; N18.9 - Chronic kidney disease, unspecified Status: Acute Assessment and Plan: BUN/Cr 64/1.70 trending down fluid overloaded Trend BUN/Cr will being diuresed Bumex 2mg IV BID, one time bumex 1mg at 1200 consider nephrology with worsening renal function (7) Smoking addiction: Code(s): F17.200 - Nicotine dependence, unspecified, uncomplicated Status: Acute Assessment and Plan: smokes 1ppd Nicotine 21mg transdermal gum smoking cessation councelling (8) Headache: Code(s): R51.9 - Headache, unspecified Status: Acute Assessment and Plan: Could be from nicotine withdrawal Patient reports visual changes as well Nicotine patch and gum ordered CT head Chronic sinusitis monitor Additional Plan Subjective Date/time seen: 04/05/21 07:15 Interval history: Patient is a 65 year old female here for fluid overload and increased shortness of breath. She said that she is doing ok, but she is congested. She does have a cough which she stated was yellow. She said that she normally takes Robitussin at home which helps. She is still short of breath which she did say that it is worse than normal. Her legs are still very swollen but she states that they are painful as wel
--- NOTE | 2021-04-05 11:19 | PM.PNCARD ---
Progress Note: A&P Assessment and Plan (1) Acute on chronic diastolic CHF (congestive heart failure): Code(s): I50.33 - Acute on chronic diastolic (congestive) heart failure Status: Acute Assessment and Plan: - Agree with 2mg Bumex IV BID - BUN/Cr stable - Daily BMP - Echo showed moderately reduced LV systolic function with an EF measured at 42%. Grade 2 diastolic dysfunction is present. Severe RV enlargement. Severe biatrial enlargement. Significant PHTN, estimated PA systolic pressure 67 mmHg. Severe tricuspid valve regurgitation. - DVT prophylaxis with SCDs (2) Pulmonary hypertension: Code(s): I27.20 - Pulmonary hypertension, unspecified Status: Acute Assessment and Plan: Also has right heart failure and a history of severe pulmonary hypertension. Denies a history of sleep apnea. Echo results above. Apnea link showed AHI 33. Pulmonary c/s for CPAP (3) COPD (chronic obstructive pulmonary disease): Code(s): J44.9 - Chronic obstructive pulmonary disease, unspecified Status: Acute Assessment and Plan: On home O2. Unfortunately continues to smoke. (4) Chronic atrial fibrillation: Code(s): I48.20 - Chronic atrial fibrillation, unspecified Status: Acute Assessment and Plan: Rate controlled with metoprolol succinate 25 mg daily. Eliquis discontinued in January due to severe anemia and GI bleeding. Patient continues to have significant anemia so we will avoid anticoagulation. (5) Chronic kidney disease, stage 3: Code(s): N18.30 - Chronic kidney disease, stage 3 unspecified Status: Acute Assessment and Plan: Daily BMP (6) Iron deficiency anemia: Code(s): D50.9 - Iron deficiency anemia, unspecified Status: Acute Assessment and Plan: Follow H&H (7) Chest discomfort: Code(s): R07.89 - Other chest pain Status: Acute Assessment and Plan: Has atypical chest discomfort likely due to CHF. Minimally elevated troponin, flat profile, due to CHF, no evidence of ischemic event or ACS. (8) Adrenal insufficiency: Code(s): E27.40 - Unspecified adrenocortical insufficiency Status: Acute Assessment and Plan: Has a longstanding history of adrenal insufficiency treated with hydrocortisone 10 mg b.i.d. continue steroids. (9) Low blood pressure: Code(s): I95.9 - Hypotension, unspecified Status: Acute Assessment and Plan: History of low blood pressure requiring midodrine. Additional Plan Acute on chronic sever RV failure with grade II diastolic LV dysfunction, sever Pulm HTN, sever TR, Acute on chronic anemia, SOB likely multifactorial for prior causes and HX of COPD, CKD, chronic AF not on OAC because of prior GI bleed, Plan cont IV diuresis, correct anemia, poor prognosis Subjective Date/time seen: 04/05/21 11:19 Interval history: Cardiology follow-up for CHF, AFib Date of service 04/05/2021: Patient is complaining of worsening shortness of breath today. She also continues to have a productive cough. Complains of headache as well. Overall not feeling very well today. Review of Systems Review of Systems: All systems reviewed & are unremarkable except as noted in HPI and below Constitutional: Constitutional: Reports fatigue, Reports headache(s), Reports lethargy and Reports weakness Eyes: Eyes: Reports no additional eye complaints ENT: Reports headache(s) and Denies epistaxis Cardiovascular: Cardiovascular: Reports chest pain, Denies diaphoresis, Reports pedal edema, Reports leg edema, Denies lightheadedness, Denies palpitations, Reports dyspnea and Reports dyspnea on exertion Respiratory: Respirat
[2021-04-05 11:39] LABS: NT Pro B Type Natriuretic Pept 21400 pg/mL (5-100)
--- NOTE | 2021-04-05 15:26 | PCPTNOTE ---
PT edgar refused; pt sat at the edge of the bed, refused to do leg exercises or get OOB, had increased SOB and returned to supine; discussed pt with ZAINAB Evans.
--- NOTE | 2021-04-05 17:11 | WPDGIPROGNO ---
Progress Note: A&P Assessment and Plan (1) Acute on chronic blood loss anemia: Code(s): D62 - Acute posthemorrhagic anemia Status: Acute Assessment and Plan: hb low but stable after blood transfusion, no report of overt gib patient would like to hold off on EGD, still c/o SOB. I agree, prefer to monitor for any signs of active bleeding- high risk for anesthesia. Recent EGD showed AMV stomach that was treated continue with protonix and monitor h/h (2) Occult blood in stools: Code(s): R19.5 - Other fecal abnormalities Status: Acute (3) AVM (arteriovenous malformation) of stomach, acquired: Code(s): K31.819 - Angiodysplasia of stomach and duodenum without bleeding Status: Acute Assessment and Plan: found during recent egd and treated also had non-bleeding avm in colon (4) Acute on chronic diastolic CHF (congestive heart failure): Code(s): I50.33 - Acute on chronic diastolic (congestive) heart failure Status: Acute Assessment and Plan: SOB probably multifactorial (CHF, pulmonary htn, copd, etc), cardiology on board (5) COPD (chronic obstructive pulmonary disease): Code(s): J44.9 - Chronic obstructive pulmonary disease, unspecified Status: Acute (6) Pulmonary hypertension: Code(s): I27.20 - Pulmonary hypertension, unspecified Status: Acute Subjective Date/time seen: 04/05/21 17:11 Interval history: main complain is persistent SOB using oxygen, she on iv diuretics. Review of Systems Review of Systems: All systems reviewed & are unremarkable except as noted in HPI and below Exam Const: General: no acute distress and ill appearing chronically Other: on oxygen HENMT: General nose exam: Normal nares present Eyes: Sclera: sclerae normal Neck: Neck: supple Resp: Auscultation: rales and diminished lung sounds Cardio: Rate: regular rate GI: GI Palp: Yes Soft to palpation, No Tenderness to palpation present (GI) and No Guarding due to palpation present (GI) Auscultation: normal bowel sounds Skin: General skin exam: no rashes or lesions noted Neuro: Speech: normal speech Motor exam (neuro): Normal motor muscle tone present throughout Extrem: General: edema bilateral Psych: Mental Status: mental status grossly normal Objective Data Vital Signs Vital Signs: Vital Signs - 24 hr 04/04/21 19:13 04/04/21 20:00 04/04/21 22:00 Temperature 99 F Pulse Rate 72 79 83 Respiratory Rate 20 20 18 Blood Pressure 110/67 Pulse Oximetry 98 99 99 04/05/21 00:00 04/05/21 04:00 04/05/21 06:00 Temperature 98.7 F Pulse Rate 77 78 82 Respiratory Rate 18 Blood Pressure 121/69 Pulse Oximetry 99 04/05/21 08:00 04/05/21 09:56 04/05/21 12:00 Temperature Pulse Rate 83 105 H 88 Respiratory Rate Blood Pressure Pulse Oximetry 04/05/21 14:00 04/05/21 16:00 Temperature 98.4 F Pulse Rate 83 87 Respiratory Rate 20 Blood Pressure 105/58 L Pulse Oximetry 100 Intake/Output Intake/Output: Intake & Output 04/02/21 04/03/21 04/04/21 04/05/21 23:59 23:59 23:59 23:59 Intake Total 745 1230 240 Output Total 550 300 Balance 195 930 240 Meds/Results Medications: Active Medications Generic Name Dose Route Start Last Admin Trade Name Freq PRN Reason Stop Dose Admin Acetaminophen 500 mg 04/03/21 06:25 04/04/21 20:53 Acetaminophen 500 Mg Tablet PO 500 mg Q6H PRN Administration Pain Albuterol 2 puff 04/03/21 06:25 04/04/21 07:20 Albuterol Sulfate (*Sp) Aerosol 1 Puff INHALATION 2 puff QID PRN Administration Shortness Of Breath Or Wheezing Allopurinol 100 mg 04/03/21 09:00 04/05/21 09:56 Allopurinol 100 Mg Tablet PO 100 mg DAILY FIDEL Administration Budesonide/Formoterol Fumarate 2 puff 04/03/21 08:00 04/05/21 11:12 Budesonide/Form 160-4.5 Mcg (*Sp) INHALATION 2 puff Q12HRT FIDEL Administration Bumetanide 2 mg 04/05/21 17:00 Bumet
[2021-04-05] MEDS: BUMETANIDE INJ 2.5 MG/10 ML VIAL 2 MG IV PUSH (18:20)
[2021-04-05] MEDS: ACETAMINOPHEN 500 MG TABLET PO (22:17)
[2021-04-06] VITALS (18 sets, daily range): BP systolic 104–122; BP diastolic 58–72; PULSE 82–101; RESP 16–22; TEMP 35.7–37.2; O2SAT 95–100
[2021-04-06 06:21] LABS: Basophils Percent Auto 0.4 % (0.2-1.2); Hematocrit 30.1 % (37.0-47.0); Hemoglobin 8.5 g/dL (12.0-15.0); Immature Granulocyte Absolute 0.02 K/mm3 (0.00-0.031); Immature Granulocyte Percent A 0.4 % (0-0.5); Lymphocytes Absolute Auto 0.86 K/mm3 (0.9-3.2); Lymphocytes Percent Auto 16.5 % (18.3-44.2); Mean Corpuscular HGB Conc 28.2 g/dl (32-36); Mean Corpuscular Hemoglobin 28.8 pg (26-34); Monocytes Absolute Auto 0.6 K/mm3 (0.1-0.6); Monocytes Percent Auto 10.6 % (2.6-8.5); Neutrophils Absolute Auto 3.8 K/mm3 (1.3-6.7); Neutrophils Percent Auto 72.1 % (45.5-73.1); Platelet Count Result 163 k/mm3 (150-375); Red Blood Count 2.95 M/mm3 (4.2-5.4); Red Cell Distribution Width 16.5 % (11.5-14.5); White Blood Count 5.2 K/mm3 (4.5-10.0)
[2021-04-06 06:23] LABS: Alanine Aminotransferase 8 U/L (4-35); Albumin Level 3.9 g/dL (3.5-5.1); Alkaline Phosphatase 128 U/L (38-126); Anion Gap 5 mmol/L (8-16); Aspartate Amino Transferase 25 U/L (14-36); Bilirubin,Total 0.7 mg/dL (0.2-1.3); Blood Urea Nitrogen 65 mg/dL (7-17); Calcium 9.3 mg/dL (8.4-10.2); Carbon Dioxide 39 mmol/L (22-30); Chloride 94 mmol/L (98-107); Estimated CRCL calculation 34 ml/min; Estimated Glomerular Filt Rate 37; Glucose 96 mg/dL (65-110); Magnesium 1.9 mg/dL (1.6-2.3); Potassium 4.4 mmol/L (3.4-5.0); Sodium 138 mmol/L (137-145)
[2021-04-06 08:32] LABS: Platelet Estimate Adequate (Adequate)
[2021-04-06 08:33] LABS: Anisocytosis 2+ (NORMAL); Ovalocytes 1+ (NORMAL); Target Cells 1+ (NORMAL); Tear Drop Cells 1+ (NORMAL)
[2021-04-06] MEDS: FOLIC ACID 1 MG TABLET PO (09:14)
[2021-04-06] MEDS: BUMETANIDE INJ 2.5 MG/10 ML VIAL 2 MG IV PUSH ×3 (09:14→18:51)
[2021-04-06] MEDS: guaiFENesin 12 HR 600 MG TABCR 1200 MG PO ×2 (09:14→20:23)
[2021-04-06] MEDS: POTASSIUM CHLORIDE 20 MEQ TABLET.ER PO (09:14)
[2021-04-06] MEDS: METOPROLOL SUCCINATE EXT REL 25 MG TABCR PO (09:15)
[2021-04-06] MEDS: allopurinoL 100 MG TABLET PO (09:15)
[2021-04-06] MEDS: MIDODRINE HCL 2.5 MG TABLET 5 MG PO ×3 (09:15→18:51)
[2021-04-06] MEDS: FERROUS SULFATE 324 MG TABLET PO ×2 (09:15→18:51)
[2021-04-06] MEDS: HYDROCORTISONE 10 MG TABLET PO ×2 (09:15→18:51)
[2021-04-06] MEDS: PANTOPRAZOLE SODIUM IV 40 MG VIAL IV PUSH ×2 (09:17→20:23)
[2021-04-06] MEDS: SALINE 0.65% NAS SOLN 44 ML BTL 2 SPRAY NASAL ×4 (09:17→20:25)
--- NOTE | 2021-04-06 09:55 | PM.PNCARD ---
Progress Note: A&P Assessment and Plan (1) Acute on chronic diastolic CHF (congestive heart failure): Code(s): I50.33 - Acute on chronic diastolic (congestive) heart failure <SEAMUS Rodriguez - Last Filed: 04/06/21 11:15> Status: Acute <SEAMUS Rodriguez - Last Filed: 04/06/21 11:15> Assessment and Plan: - Agree with 2mg Bumex IV BID. Given extra dose of 2 mg Bumex IV now. Will initiate metolazone 2.5 b.i.d. with close monitoring of renal function. - BUN/Cr stable - Daily BMP - BNP - Repeat chest x-ray - Echo showed moderately reduced LV systolic function with an EF measured at 42%. Grade 2 diastolic dysfunction is present. Severe RV enlargement. Severe biatrial enlargement. Significant PHTN, estimated PA systolic pressure 67 mmHg. Severe tricuspid valve regurgitation. - DVT prophylaxis with SCDs <SEAMUS Rodriguez - Last Filed: 04/06/21 11:15> (2) Pulmonary hypertension: Code(s): I27.20 - Pulmonary hypertension, unspecified <SEAMUS Rodriguez - Last Filed: 04/06/21 11:15> Status: Acute <SEAMUS Rodriguez - Last Filed: 04/06/21 11:15> Assessment and Plan: Also has right heart failure and a history of severe pulmonary hypertension. Denies a history of sleep apnea. Echo results above. Apnea link showed AHI 33. Pulmonary c/s for CPAP <SEAMUS Rodriguez - Last Filed: 04/06/21 11:15> (3) COPD (chronic obstructive pulmonary disease): Code(s): J44.9 - Chronic obstructive pulmonary disease, unspecified <SEAMUS Rodriguez - Last Filed: 04/06/21 11:15> Status: Acute <SEAMUS Rodriguez - Last Filed: 04/06/21 11:15> Assessment and Plan: On home O2. Unfortunately continues to smoke. <Jodi Gonzalez APN-C - Last Filed: 04/06/21 11:15> (4) Chronic atrial fibrillation: Code(s): I48.20 - Chronic atrial fibrillation, unspecified <Jodi Gonzalez APN-C - Last Filed: 04/06/21 11:15> Status: Acute <Jodi Gonzalez APN-C - Last Filed: 04/06/21 11:15> Assessment and Plan: Rate controlled with metoprolol succinate 25 mg daily. Eliquis discontinued in January due to severe anemia and GI bleeding. Patient continues to have significant anemia so we will avoid anticoagulation. <KASSIE RodriguezC - Last Filed: 04/06/21 11:15> (5) Chronic kidney disease, stage 3: Code(s): N18.30 - Chronic kidney disease, stage 3 unspecified <KASSIE RodriguezC - Last Filed: 04/06/21 11:15> Status: Acute <Jodi Gonzalez APN-C - Last Filed: 04/06/21 11:15> Assessment and Plan: Daily BMP <Jodi Gonzalez APN-C - Last Filed: 04/06/21 11:15> (6) Iron deficiency anemia: Code(s): D50.9 - Iron deficiency anemia, unspecified <Jodi Gonzalez APN-C - Last Filed: 04/06/21 11:15> Status: Acute <Jodi Gonzalez APN-C - Last Filed: 04/06/21 11:15> Assessment and Plan: Follow H&H <KASSIE RodriguezC - Last Filed: 04/06/21 11:15> (7) Chest discomfort: Code(s): R07.89 - Other chest pain <SEAMUS Rodriguez - Last Filed: 04/06/21 11:15> Status: Acute <Jodi Gonzalez APN-C - Last Filed: 04/06/21 11:15> Assessment and Plan: Has atypical chest discomfort likely due to CHF. Minimally elevated troponin, flat profile, due to CHF, no evidence of ischemic event or ACS. <SEAMUS Rodriguez - Last Filed: 04/06/21 11:15> (8) Adrenal insufficiency: Code(s): E27.40 - Unspecified adrenocortical insufficiency <SEAMUS Rodriguez - Last Filed: 04/06/21 11:15> Status: Acute <SEAMUS Rodriguez - Last Filed: 04/06/21 11:15> Assessment and Plan: Has a longst
[2021-04-06 10:33] LABS: NT Pro B Type Natriuretic Pept 26100 pg/mL (5-100)
--- NOTE | 2021-04-06 10:52 | PM.IMPN ---
Progress Note: A&P Assessment and Plan (1) CHF (congestive heart failure): Qualifiers: Heart failure chronicity: acute on chronic Heart failure type: combined systolic and diastolic Qualified Code(s): I50.43 - Acute on chronic combined systolic (congestive) and diastolic (congestive) heart failure Code(s): I50.9 - Heart failure, unspecified Status: Acute Assessment and Plan: Patient is a 65-year-old woman with a history of COPD, chronic respiratory failure on 2 L of oxygen /, chronic moderate congestive heart failure with recent admission at [facility], who presented to the emergency room with complaints of right-sided chest pain, headache, and increased shortness of breath over the last 2 days. Initial vitals showed she was afebrile, bradycardic at 58 beats per minute, respiratory rate normal at 18, pulse ox 100% on 2 L, blood pressure stable at 113/60. Initial labs showed a macrocytic anemia with a hemoglobin of 6.8, hematocrit 23%, CO2 elevated at 37, elevated creatinine 1.7, BUN 62[place] [address], troponins are flat at 0.03 x3. She was given 1 unit of packed red blood cells with improvement of her hemoglobin to 8.5, hematocrit 30% today. Patient was found to have positive occult blood in her stool. Due to patient's underlying issues, GI recommends holding off any type of EGD your colonoscopy. Dr. 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 Continue PPI twice daily. Monitor H&H. Transfuse if hemoglobin less than 7. No signs of acute overt signs of GI bleeding at this time. Acute on chronic diastolic and systolic heart failure in exacerbation on Bumex 2 mg IV BID and given an extra dose of IV Bumex this morning by cardiology. Patient reports improvement of leg swelling over the last few days. She is reporting increase SOB today. Repeat CXR showed Cardiomegaly with pulmonary vascular congestion. Right basilar atelectasis. History of COPD due to chronic tobacco abuse. I also ordered some DuoNeb treatments for her because she states she does breathing treatments at home with albuterol. She did have wheezing on expiration today. Will hold off on any type of steroids at this time. She is currently 94% on 3 L via nasal cannula. The patient was not vaccinated for COVID-19. She denies any history of known contacts. Cardiology recommended consulting pulmonology for her possible underlying sleep apnea for recommendations and I also consulted pulmonology for underlying COPD and wheezing. History of severe pulmonary hypertension and RV function. Continue monitoring fluid status. Fluid restriction. Strict I&O, daily weights. Supplemental oxygen maintain a saturation greater than 90%. Appreciate GI, cardiology and pulmonology input. (2) Anemia: Qualifiers: Anemia type: iron deficiency Iron deficiency anemia type: unspecified iron deficiency Qualified Code(s): D50.9 - Iron deficiency anemia, unspecified Code(s): D64.9 - Anemia, unspecified Status: Acute Assessment and Plan: Iron deficiency anemia with low % saturation, smita, and iron. Continue Ferrous sulfate 325mg PO BID Labs in the am SEE ABOVE (3) COPD (chronic obstructive pulmonary disease): Code(s): J44.9 - Chronic obstructive pulmonary disease, unspecified Status: Acute Assessment and Plan: SEE ABOVE. Pulmonary consultation placed. (4) Chest pain: Code(s): R07.9 - Chest pain, unspecified Status: Acute Assessment and Plan: Type 2 [place]- non ischemic, probably related to CHF exacerbation, anemia Trops negative 0.034, 0.030, 0.031 Cardiology consulted who state the patient has atypical chest discomfort likely due to CHF. Minimally elevated tro
--- NOTE | 2021-04-06 13:46 | PCRCNOTE ---
Window of time for administration has passed. See next scheduled administration.
[2021-04-06] MEDS: IPRATROPIUM BR 0.02% INH SOLN 0.5 MG/2.5 ML VIAL INHALATION ×2 (13:47→21:58)
[2021-04-06] MEDS: ALBUTEROL SULFATE NEB 2.5 MG/0.5 ML INH INHALATION ×2 (13:47→21:58)
[2021-04-06 14:00] LABS: Alveolar/Arterial O2 Gradient 83.2 mmHg; Base Excess ABG 11.8 mEq/l (+/-2.0); Fractional Inspired Oxygen 32 %; HCO3 ABG 38.6 mEq/l (22.0-26.0); Oxygen Content ABG 12.6 %vol (16.0-22.0); Oxygen Saturation ABG 92.9 % (95.0-100.0); Oxyhemoglobin 92.5 % THb (90.0-100.0); PO2 ABG 68.4 mmHg (80.0-100.0); PO2 FiO2 Ratio Arterial Blood 2.14 %; Total Hemoglobin 9.6 g/dL (12.0-18.0); pH ABG 7.389 (7.350-7.450)
[2021-04-06 14:03] LABS: PCO2 ABG 65.4 mmHg (35.0-45.0); Site Drawn LEFT RADIAL
[2021-04-06 14:04] LABS: Device NASAL CANNULA; Modified Allen's Test Pass
--- NOTE | 2021-04-06 14:34 | WPDGIPROGNO ---
Progress Note: A&P Assessment and Plan (1) Acute on chronic blood loss anemia: Code(s): D62 - Acute posthemorrhagic anemia Status: Acute Assessment and Plan: hb low but stable last few days after blood transfusion, no report of overt gib given persistent respiratory discomfort and no report of overt-GIB, hold off EGD, will continue with conservative treatment with ppi and monitor for any obvious signs of bleeding egd and colonoscopy 3 months reviewed with AVM's (one in stomach had stigmata of bleeding but treated) (2) Occult blood in stools: Code(s): R19.5 - Other fecal abnormalities Status: Acute (3) AVM (arteriovenous malformation) of stomach, acquired: Code(s): K31.819 - Angiodysplasia of stomach and duodenum without bleeding Status: Acute Assessment and Plan: found during recent egd and treated also had non-bleeding avm in colon (4) Acute on chronic diastolic CHF (congestive heart failure): Code(s): I50.33 - Acute on chronic diastolic (congestive) heart failure Status: Acute Assessment and Plan: SOB probably multifactorial (CHF, pulmonary htn, copd, etc), cardiology and pulmonary on board (5) COPD (chronic obstructive pulmonary disease): Code(s): J44.9 - Chronic obstructive pulmonary disease, unspecified Status: Acute (6) Pulmonary hypertension: Code(s): I27.20 - Pulmonary hypertension, unspecified Status: Acute Subjective Date/time seen: 04/06/21 14:35 Interval history: her main complain is persistent shortness of breath and wheezing, respiratory therapist just obtained ABG and will get more breathing Rx. Denies melena or blood in stools. Review of Systems Review of Systems: All systems reviewed & are unremarkable except as noted in HPI and below Exam Const: General: no acute distress and ill appearing chronically Other: on oxygen HENMT: General nose exam: Normal nares present Eyes: Sclera: sclerae normal Neck: Neck: supple Resp: Auscultation: rales, wheezes expiratory wheezes and diminished lung sounds Cardio: Rate: regular rate GI: GI Palp: Yes Soft to palpation, No Tenderness to palpation present (GI) and No Guarding due to palpation present (GI) Auscultation: normal bowel sounds Skin: General skin exam: no rashes or lesions noted Neuro: Speech: normal speech Motor exam (neuro): Normal motor muscle tone present throughout Extrem: General: edema bilateral Psych: Mental Status: mental status grossly normal Objective Data Vital Signs Vital Signs: Vital Signs - 24 hr 04/05/21 16:00 04/05/21 20:00 04/05/21 22:29 Temperature 97.2 F L Pulse Rate 87 79 85 Respiratory Rate 20 Blood Pressure 125/90 Pulse Oximetry 96 04/05/21 22:30 04/06/21 00:00 04/06/21 04:00 Temperature Pulse Rate 82 88 Respiratory Rate Blood Pressure Pulse Oximetry 96 04/06/21 05:41 04/06/21 05:55 04/06/21 08:00 Temperature 98.9 F Pulse Rate 101 H 87 Respiratory Rate 22 H Blood Pressure 104/66 Pulse Oximetry 100 99 04/06/21 09:15 04/06/21 10:13 04/06/21 13:47 Temperature Pulse Rate 95 101 H Respiratory Rate 20 Blood Pressure Pulse Oximetry 98 04/06/21 14:09 Temperature Pulse Rate 100 Respiratory Rate 20 Blood Pressure Pulse Oximetry Intake/Output Intake/Output: Intake & Output 04/03/21 04/04/21 04/05/21 04/06/21 23:59 23:59 23:59 23:59 Intake Total 745 1230 960 120 Output Total 550 300 250 Balance 195 930 960 -130 Meds/Results Medications: Active Medications Generic Name Dose Route Start Last Admin Trade Name Freq PRN Reason Stop Dose Admin Acetaminophen 500 mg 04/03/21 06:25 04/05/21 22:17 Acetaminophen 500 Mg Tablet PO 500 mg Q6H PRN Administration Pain Albuterol 2.5 mg 04/06/21 10:55 04/06/21 13:47 Albuterol Sulfate Neb 2.5 Mg/0.5 Ml Inh INHALATION 2.5 mg Q6HRT FIDEL Administration Allopurinol 100 mg 08
--- NOTE | 2021-04-06 16:14 | PM.CNPUL ---
Assessment and Plan Assessment and plan (1) COPD (chronic obstructive pulmonary disease): Code(s): J44.9 - Chronic obstructive pulmonary disease, unspecified Status: Acute Assessment and Plan: Patient with a long history of tobacco use and currently smoking and carries a diagnosis of COPD for 5 years on 2 L nasal cannula at night. Patient is found to have severe pulmonary hypertension (PASP 67 on 04/03/21) with right ventricular systolic dysfunction as well as left ventricular systolic dysfunction. Patient presented with fluid overload and has chronic hypercarbic respiratory failure from her COPD with an ABG on 3 L nasal cannula of 7.38/65/68. I do not feel patient is currently having an active COPD exacerbation and agree with continuing her on albuterol 2.5 mg nebs Q 6 hours, ipratropium 0.5 mg nebs q.6 hours and I will place her on inhaled budesonide 500 mcg nebs b.i.d. I will decrease her Symbicort as she is on maximum beta agonists and inhaled corticosteroids with this regimen. She is currently on hydrocortisone 10 mg p.o. b.i.d. and I do not feel a need to increase her steroids at this point. I do not think the patient has a pulmonary infection and do not feel she needs antibiotics at this time. Patient has chronic hypercarbic respiratory failure from her COPD with an elevated PaCO2 of 65 and an admission bicarbonate of 37 on 04/02/2021. The patient would benefit from BiPAP or noninvasive ventilation. I placed the patient on BiPAP today and she could not tolerate the pressures even at 10/5. I placed the patient on noninvasive ventilation with an AVAPS mode with a rate of 16, tidal volume 500, 8 expiratory pressure 5, minimal inspiratory pressure 6, maximal inspiratory pressure 25, inspiratory time of 1.10 seconds, rise of 5 which is our lowest setting and 30%. Patient states that these settings were comfortable and I will continue those tonight and check a blood gas in the morning and an overnight oximetry. I have discussed with the dye house supervisor the need for home noninvasive ventilation with an AVAPS mode and she will initiate this process. I agree with as aggressive diuresis as tolerated by her cardiac and renal systems per the Hospitalists in the Cardiology teams. Her cumulative fluid balance in the computer is positive 1.955 L since admission. The patient states that her edema is better. Will follow with you. History of Present Illness History of Present Illness Consult date: 04/06/21 Reason for consult: COPD Chief complaint: chf, anemia Narrative: This is a new pulmonary consult for COPD with hypercarbic respiratory failure 65-year-old woman with a history of chronic atrial fibrillation, congestive heart failure, cirrhosis, Adrenal insufficiency on home steroids, COPD on 2 L nasal cannula oxygen 24 hours a day presented on 814 with shortness of breath and Was found to have anemia, fluid overload and was treated with packed red blood cells, diuretics and Bronchodilators. Patient had an echocardiogram demonstrating decreased LV systolic ejection fraction at 42%, grade 2 diastolic dysfunction, severe pulmonary hypertension with an estimated pulmonary arterial sticks out systolic pressure of 67, severely enlarged left atrium, right atrium and right ventricle with moderate right ventricular hypokinesis. Patient also had a apnea link on 2L NC on 04/03 demonstrating a baseline saturation of 99%, lowest saturation 91% an AHI of 33. I was consulted. 04/06 Patient tells me that she has chronic dyspnea on exertion at 15 ft across the room in her house. She tells me that she takes 2 inhalers And the Home Medical medicine list states she takes Symbicort 160-4.5 at 2 puffs twice a day and ipratropium bromide 17 mcg at 2 puffs q.i.d.. Patient states her last exacerbation was a month ago. Currently patient states she is improved since she came to the hospital and that her swelling is improved. She
[2021-04-06] MEDS: metOLazone 2.5 MG TABLET PO (16:32)
[2021-04-06 19:36] LABS: Haptoglobin 146 mg/dL (43-212)
[2021-04-06] MEDS: BUDESONIDE RESPULE NEB 0.5 MG/2 ML AMP INHALATION (21:58)
[2021-04-07] VITALS (20 sets, daily range): BP systolic 97–131; BP diastolic 60–71; PULSE 71–108; RESP 18–21; TEMP 36.2–37.2; O2SAT 92–100
--- NOTE | 2021-04-07 01:50 | PCRCNOTE ---
02:00 nebulizer treatment not administered due to pt being on overnight apnea study.
[2021-04-07] MEDS: ACETAMINOPHEN 500 MG TABLET PO (04:54)
[2021-04-07 04:58] LABS: Alveolar/Arterial O2 Gradient 75.3 mmHg; Base Excess ABG 16.3 mEq/l (+/-2.0); Device NASAL CANNULA; Fractional Inspired Oxygen 28 %; HCO3 ABG 42.4 mEq/l (22.0-26.0); Modified Allen's Test Pass; Oxygen Content ABG 12.9 %vol (16.0-22.0); Oxygen Saturation ABG 88.9 % (95.0-100.0); Oxyhemoglobin 88.3 % THb (90.0-100.0); PCO2 ABG 59.7 mmHg (35.0-45.0); PO2 ABG 53.9 mmHg (80.0-100.0); PO2 FiO2 Ratio Arterial Blood 1.93 %; Site Drawn RIGHT RADIAL; Total Hemoglobin 10.4 g/dL (12.0-18.0); pH ABG 7.469 (7.350-7.450)
[2021-04-07 06:12] LABS: Hematocrit 28.7 % (37.0-47.0); Hemoglobin 8.2 g/dL (12.0-15.0); Mean Corpuscular HGB Conc 28.6 g/dl (32-36); Mean Corpuscular Hemoglobin 28.9 pg (26-34); Mean Corpuscular Volume 101.1 fl (80-100); Mean Platelet Volume 10.1 fl (7.4-10.4); Platelet Count Result 152 k/mm3 (150-375); Red Blood Count 2.84 M/mm3 (4.2-5.4); Red Cell Distribution Width 16.2 % (11.5-14.5); White Blood Count 5.8 K/mm3 (4.5-10.0)
[2021-04-07 06:41] LABS: Blood Urea Nitrogen 62 mg/dL (7-17); Calcium 9.5 mg/dL (8.4-10.2); Carbon Dioxide > 40 mmol/L (22-30); Chloride 91 mmol/L (98-107); Estimated CRCL calculation 36 ml/min; Estimated Glomerular Filt Rate 39; Glucose 111 mg/dL (65-110); Potassium 4.1 mmol/L (3.4-5.0); Sodium 138 mmol/L (137-145)
[2021-04-07 07:51] LABS: Albumin Level 3.7 g/dL (3.5-5.1)
--- NOTE | 2021-04-07 08:24 | PM.PNPUL ---
Progress Note: A&P Assessment and Plan (1) COPD (chronic obstructive pulmonary disease): Code(s): J44.9 - Chronic obstructive pulmonary disease, unspecified Status: Acute Assessment and Plan: Patient with a long history of tobacco use and currently smoking and carries a diagnosis of COPD for 5 years on 2 L nasal cannula at night. No PFTs available. Patient is found to have severe pulmonary hypertension (PASP 67 on 04/03/21, and was 60 on 08/19/2017) with right ventricular systolic dysfunction as well as left ventricular systolic dysfunction. Patient presented with fluid overload and has chronic hypercarbic respiratory failure from her COPD with an ABG on 3 L nasal cannula of 7.38/65/68. 04/06 I do not feel patient is currently having an active COPD exacerbation and agree with continuing her on albuterol 2.5 mg nebs Q 6 hours, ipratropium 0.5 mg nebs q.6 hours and I will place her on inhaled budesonide 500 mcg nebs b.i.d. I will decrease her Symbicort as she is on maximum beta agonists and inhaled corticosteroids with this regimen. She is currently on hydrocortisone 10 mg p.o. b.i.d. and I do not feel a need to increase her steroids at this point. I do not think the patient has a pulmonary infection and do not feel she needs antibiotics at this time. Patient has chronic hypercarbic respiratory failure from her COPD with an elevated PaCO2 of 65 and an admission bicarbonate of 37 on 04/02/2021. The patient would benefit from BiPAP or noninvasive ventilation. I placed the patient on BiPAP today and she could not tolerate the pressures even at 10/5. I placed the patient on noninvasive ventilation with an AVAPS mode with a rate of 16, tidal volume 500, 8 expiratory pressure 5, minimal inspiratory pressure 6, maximal inspiratory pressure 25, inspiratory time of 1.10 seconds, rise of 5 which is our lowest setting and 30%. Patient states that these settings were comfortable and I will continue those tonight and check a blood gas in the morning and an overnight oximetry. I have discussed with the supervisor assembly the need for home noninvasive ventilation with an AVAPS mode and she will initiate this process. I agree with as aggressive diuresis as tolerated by her cardiac and renal systems per the Hospitalists in the Cardiology teams. Her cumulative fluid balance in the computer is positive 1.955 L since admission. The patient states that her edema is better. 04/07 patient states that she is improved since admission but still has some shortness of breath, cough and minimal phlegm production. No wheezes on albuterol, ipratroprium and budesonide nebulizers. On 2 L nasal cannula saturations 92%. She wore her noninvasive ventilation with the AVAPS mode overnight and 30% and stated she did sleep okay. Per the nurse she did sleep throughout the night but then woke up acutely agitated and pulled her mask off. About 10 minutes after her mask was pulled off an ABG was drawn which demonstrated a pH of 7.47/60/50 for on 2 L nasal cannula. Will arrange for AVAPS mode at [facility] with these settings. Patient had an overnight oximetry that demonstrated an average saturation of 92%. Lowest saturation 78%. Time with saturation less than or equal to 88% was 8 minutes or 2% of the monitored time. Will increase FIO2 to 35% tonight. Agree with aggressive diuresis as tolerated by cardiac and renal systems. Cr 1.6, 04/06/2020 the input is charted as 220, out's 250, suspect this is incomplete data. weight has decreased 0.9 kg since admission. On Bumex 2 mg IV b.i.d. and metolazone 2.5 mg p.o. b.i.d., on midodrine as well. Will follow with you. Subjective Date/time seen: 04/07/21 08:24 Interval history: Narrative: This is a new pulmonary consult for COPD with hypercarbic respiratory failure 65-year-old woman with a history of chronic atrial fibrillation, congestive heart failure, cirrhosis, Adrenal insuffi
--- NOTE | 2021-04-07 08:25 | PM.PNCARD ---
Progress Note: A&P Assessment and Plan (1) Acute on chronic diastolic CHF (congestive heart failure): Code(s): I50.33 - Acute on chronic diastolic (congestive) heart failure Status: Acute Assessment and Plan: - Her fluid balance is about 2 L positive for this admission. Continue 2mg Bumex IV BID and metolazone 2.5 b.i.d. with close monitoring of renal function and blood pressure. - BUN/Cr stable - Daily BMP - BNP - Repeat chest x-ray 04/06/21 showed worsening pulmonary vascular congestion - continue aggressive diuresis as tolerated - LE edema improving - compression stockings in place - DVT prophylaxis with SCDs - Echo showed moderately reduced LV systolic function with an EF measured at 42%. Grade 2 diastolic dysfunction is present. Severe RV enlargement. Severe biatrial enlargement. Significant PHTN, estimated PA systolic pressure 67 mmHg. Severe tricuspid valve regurgitation. (2) Pulmonary hypertension: Code(s): I27.20 - Pulmonary hypertension, unspecified Status: Acute Assessment and Plan: Also has right heart failure and a history of severe pulmonary hypertension. Denies a history of sleep apnea. Echo results above. (3) COPD (chronic obstructive pulmonary disease): Code(s): J44.9 - Chronic obstructive pulmonary disease, unspecified Status: Acute Assessment and Plan: On home O2. Unfortunately continues to smoke. Appreciate pulmonology recommendations (4) Chronic atrial fibrillation: Code(s): I48.20 - Chronic atrial fibrillation, unspecified Status: Acute Assessment and Plan: Rate controlled with metoprolol succinate 25 mg daily. Eliquis discontinued in January due to severe anemia and GI bleeding. Patient continues to have significant anemia so we will avoid anticoagulation. (5) Chronic kidney disease, stage 3: Code(s): N18.30 - Chronic kidney disease, stage 3 unspecified Status: Acute Assessment and Plan: Daily BMP (6) Iron deficiency anemia: Code(s): D50.9 - Iron deficiency anemia, unspecified Status: Acute Assessment and Plan: Follow H&H (7) Chest discomfort: Code(s): R07.89 - Other chest pain Status: Acute Assessment and Plan: Has atypical chest discomfort likely due to CHF. Minimally elevated troponin, flat profile, due to CHF, no evidence of ischemic event or ACS. (8) Adrenal insufficiency: Code(s): E27.40 - Unspecified adrenocortical insufficiency Status: Acute Assessment and Plan: Has a longstanding history of adrenal insufficiency treated with hydrocortisone 10 mg b.i.d. continue steroids. (9) Low blood pressure: Code(s): I95.9 - Hypotension, unspecified Status: Acute Assessment and Plan: History of low blood pressure requiring midodrine. Subjective Date/time seen: 04/07/21 08:25 Interval history: Cardiology follow-up for CHF, AFib Date of service 04/05/2021: Patient is complaining of worsening shortness of breath today. She also continues to have a productive cough. Complains of headache as well. Overall not feeling very well today. Date of service 04/06/2021: Patient is feeling worse today. She is still experiencing shortness of breath - worse than yesterday. Complaining that her compression stockings are too tight. Still complains of cough. Date of service 04/07/2021: She says that her breathing is a little bit easier today. No complaints aside from feeling very sleepy and complaining about her compression stockings being too tight. Lower extremity swelling is improving. Review of Systems Review of Systems: All systems reviewed & are unremarkable except as
[2021-04-07] MEDS: BUDESONIDE RESPULE NEB 0.5 MG/2 ML AMP INHALATION ×2 (08:46→22:10)
[2021-04-07] MEDS: IPRATROPIUM BR 0.02% INH SOLN 0.5 MG/2.5 ML VIAL INHALATION ×3 (08:46→22:10)
[2021-04-07] MEDS: ALBUTEROL SULFATE NEB 2.5 MG/0.5 ML INH INHALATION ×3 (08:46→22:10)
--- NOTE | 2021-04-07 08:55 | PCOTNOTE ---
Attempted to see patient this am, however patient refused stating, No, all I want to do is sleep! I didn't sleep good last night. I had the C-Pap and those things on my feet.
[2021-04-07] MEDS: metOLazone 2.5 MG TABLET PO ×2 (09:12→17:09)
[2021-04-07] MEDS: PANTOPRAZOLE SODIUM IV 40 MG VIAL IV PUSH ×2 (09:12→20:08)
[2021-04-07] MEDS: HYDROCORTISONE 10 MG TABLET PO ×2 (09:13→17:09)
[2021-04-07] MEDS: FERROUS SULFATE 324 MG TABLET PO ×2 (09:13→17:09)
[2021-04-07] MEDS: FOLIC ACID 1 MG TABLET PO (09:13)
[2021-04-07] MEDS: MIDODRINE HCL 2.5 MG TABLET 5 MG PO ×3 (09:13→17:09)
[2021-04-07] MEDS: METOPROLOL SUCCINATE EXT REL 25 MG TABCR PO (09:13)
[2021-04-07] MEDS: POTASSIUM CHLORIDE 20 MEQ TABLET.ER PO (09:13)
[2021-04-07] MEDS: guaiFENesin 12 HR 600 MG TABCR 1200 MG PO ×2 (09:13→20:07)
[2021-04-07] MEDS: allopurinoL 100 MG TABLET PO (09:13)
[2021-04-07] MEDS: SALINE 0.65% NAS SOLN 44 ML BTL 2 SPRAY NASAL ×4 (09:18→20:07)
[2021-04-07] MEDS: BUMETANIDE INJ 2.5 MG/10 ML VIAL 2 MG IV PUSH ×2 (10:07→18:50)
--- NOTE | 2021-04-07 10:22 | PCPTNOTE ---
Attempted PT evaluation this AM. She refused participation stating that she wanted to take a nap and has been trying to nap all morning. I asked if she would participate if we came back later today and she stated maybe if I get some sleep. We will attempt one more time.
--- NOTE | 2021-04-07 11:04 | PM.IMPN ---
Progress Note: A&P Assessment and Plan (1) CHF (congestive heart failure): Qualifiers: Heart failure chronicity: acute on chronic Heart failure type: combined systolic and diastolic Qualified Code(s): I50.43 - Acute on chronic combined systolic (congestive) and diastolic (congestive) heart failure Code(s): I50.9 - Heart failure, unspecified Status: Acute Assessment and Plan: Patient is a 65-year-old woman with a history of COPD, chronic respiratory failure on 2 L of oxygen 13/03, chronic moderate congestive heart failure with recent admission at [facility], who presented to the emergency room with complaints of right-sided chest pain, headache, and increased shortness of breath over the last 2 days. Initial vitals showed she was afebrile, bradycardic at 58 beats per minute, respiratory rate normal at 18, pulse ox 100% on 2 L, blood pressure stable at 113/60. Initial labs showed a macrocytic anemia with a hemoglobin of 6.8, hematocrit 23%, CO2 elevated at 37, elevated creatinine 1.7, BUN 62, [place] [address], troponins are flat at 0.03 x3. ANEMIA- She was given 1 unit of packed red blood cells with improvement of her hemoglobin to 8.5, hematocrit 30% today. Iron deficiency anemia with low % saturation, smita, and iron. Continue Ferrous sulfate 325mg PO BID. Patient was found to have positive occult blood in her stool. Due to patient's underlying issues, GI recommends holding off any type of EGD your colonoscopy. Dr. 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 Continue PPI twice daily. 04/07/21 H&H stable 8.2/28%. Monitor H&H. Transfuse if hemoglobin less than 7. No signs of acute overt signs of GI bleeding at this time. Acute on chronic diastolic and systolic heart failure in exacerbation on Bumex 2 mg IV BID by cardiology. CXR from 04/06/21 still showing pulmonary vascular congestion. Patient reports improvement of leg swelling over the last few days. She reports improvement of her SOB today. Continue diuresis, monitoring weights daily, fluid restriction 1500cc, electrolytes and renal function. History of COPD due to chronic tobacco abuse. I also ordered some DuoNeb treatments for her because she states she does breathing treatments at home with albuterol. Talked to Dr. Karl Rios who saw the patient and does not believe she is in a COPD exacerbation at this time. He did start her on nebulizer treatments and budesonide inhaled steroid. He does not recommend any steroids at this time. He believes most of her shortness of breath is related to right-sided heart failure, anasarca and CHF. She is currently 92% on 2 L via nasal cannula. The patient was not vaccinated for COVID-19. Acute on Chronic Hypercarbic Respiratory Failure-pulmonology was testing the patient on a BiPAP overnight due to her elevated CO2 levels. Patient only tolerated BiPAP until 3:00 a.m. and removed the mask. ABG was completed this morning off the BiPAP but still showed some improvement of her elevated CO2 levels. Appreciate pulmonology is input for further evaluation. Continue monitoring fluid status. Fluid restriction. Strict I&O, daily weights. Supplemental oxygen maintain a saturation greater than 90%. Appreciate GI, cardiology and pulmonology input. (2) Anemia: Qualifiers: Anemia type: iron deficiency Iron deficiency anemia type: unspecified iron deficiency Qualified Code(s): D50.9 - Iron deficiency anemia, unspecified Code(s): D64.9 - Anemia, unspecified Status: Acute Assessment and Plan: SEE ABOVE (3) COPD (chronic obstructive pulmonary disease): Code(s): J44.9 - Chronic obstructive pulmonary disease, unspecified Status: Acute Assessment and Plan: SEE ABOVE. Pulmonary consultation placed.
--- NOTE | 2021-04-07 11:23 | WPDGIPROGNO ---
Progress Note: A&P Assessment and Plan (1) Acute on chronic blood loss anemia: Code(s): D62 - Acute posthemorrhagic anemia Status: Acute Assessment and Plan: hb low but stable last few days after blood transfusion and no report of overt gib conservative approach unless obvious GIB or drop in hemoglobin again egd and colonoscopy 3 months reviewed with AVM's (one in stomach had stigmata of bleeding but treated) (2) Occult blood in stools: Code(s): R19.5 - Other fecal abnormalities Status: Acute Assessment and Plan: hb stable now (3) AVM (arteriovenous malformation) of stomach, acquired: Code(s): K31.819 - Angiodysplasia of stomach and duodenum without bleeding Status: Acute Assessment and Plan: found during recent egd and treated also had non-bleeding avm in colon ppi daily for now and holding AC (4) Acute on chronic diastolic CHF (congestive heart failure): Code(s): I50.33 - Acute on chronic diastolic (congestive) heart failure Status: Acute Assessment and Plan: SOB probably multifactorial (CHF, pulmonary htn, copd, etc), cardiology and pulmonary on board (5) COPD (chronic obstructive pulmonary disease): Code(s): J44.9 - Chronic obstructive pulmonary disease, unspecified Status: Acute (6) Pulmonary hypertension: Code(s): I27.20 - Pulmonary hypertension, unspecified Status: Acute Subjective Date/time seen: 04/07/21 11:23 Interval history: having a better day but she says that intermittent SOB, denies blood stools Review of Systems Review of Systems: All systems reviewed & are unremarkable except as noted in HPI and below Exam Const: General: no acute distress and ill appearing chronically Other: on oxygen HENMT: General nose exam: Normal nares present Eyes: Sclera: sclerae normal Neck: Neck: supple Resp: Auscultation: rales and diminished lung sounds Cardio: Rate: regular rate GI: GI Palp: Yes Soft to palpation, No Tenderness to palpation present (GI) and No Guarding due to palpation present (GI) Auscultation: normal bowel sounds Skin: General skin exam: no rashes or lesions noted Neuro: Speech: normal speech Motor exam (neuro): Normal motor muscle tone present throughout Extrem: General: edema bilateral Psych: Mental Status: mental status grossly normal Objective Data Vital Signs Vital Signs: Vital Signs - 24 hr 08/17/21 12:00 04/06/21 13:47 04/06/21 14:00 Temperature 99.0 F Pulse Rate 96 101 H 93 Respiratory Rate 20 20 Blood Pressure 108/58 L Pulse Oximetry 100 04/06/21 14:09 04/06/21 16:00 04/06/21 19:57 Temperature 96.2 F L Pulse Rate 100 99 85 Respiratory Rate 20 16 Blood Pressure 122/72 Pulse Oximetry 99 04/06/21 20:00 04/06/21 21:59 04/06/21 22:05 Temperature Pulse Rate 100 94 93 Respiratory Rate 18 18 Blood Pressure Pulse Oximetry 95 04/06/21 22:35 04/07/21 00:00 04/07/21 01:45 Temperature Pulse Rate 93 83 Respiratory Rate 21 H 21 H Blood Pressure Pulse Oximetry 98 04/07/21 04:00 04/07/21 04:40 04/07/21 08:00 Temperature 97.1 F L Pulse Rate 88 90 94 Respiratory Rate 18 Blood Pressure 97/62 L Pulse Oximetry 93 04/07/21 08:48 04/07/21 08:58 04/07/21 09:13 Temperature Pulse Rate 108 H 100 78 Respiratory Rate 18 20 Blood Pressure Pulse Oximetry 92 Intake/Output Intake/Output: Intake & Output 04/04/21 04/05/21 04/06/21 04/07/21 23:59 23:59 23:59 23:59 Intake Total 1230 960 220 120 Output Total 300 250 Balance 930 960 -30 120 Meds/Results Medications: Active Medications Generic Name Dose Route Start Last Admin Trade Name Eun PRN Reason Stop Dose Admin Acetaminophen 500 mg 04/03/21 06:25 04/07/21 04:54 Acetaminophen 500 Mg Tablet PO 500 mg Q6H PRN Administration Pain Albuterol 2.5 mg 04/06/21 10:55 04/07/21 08:46 Albuterol Sulfate Neb 2.5 Mg/0.5 Ml I
[2021-04-07 13:02] LABS: Uric Acid 12.9 mg/dL (2.5-7.5)
[2021-04-07] MEDS: predniSONE 20 MG TABLET 40 MG PO (13:43)
--- NOTE | 2021-04-07 13:54 | PCRCNOTE ---
PAPER WORK SENT TO [facility] SET UP. WAITING FOR APPROVAL.
[2021-04-08] VITALS (19 sets, daily range): BP systolic 103–125; BP diastolic 63–75; PULSE 59–98; RESP 16–22; TEMP 35.6–36.8; O2SAT 94–100
[2021-04-08 07:09] LABS: Albumin 3.6 g/dL (3.8-4.8); Alpha 1 Globulin 0.4 g/dL (0.2-0.3); Alpha 2 Globulin 0.6 g/dL (0.5-0.9); Beta 1 Globulin 0.5 g/dL (0.4-0.6); Gamma Globulin 1.7 g/dL (0.8-1.7); Protein, Total 7.2 g/dL (6.1-8.1)
[2021-04-08 08:27] LABS: Hematocrit 27.5 % (37.0-47.0); Hemoglobin 8.1 g/dL (12.0-15.0)
[2021-04-08 08:41] LABS: Blood Urea Nitrogen 59 mg/dL (7-17); Calcium 9.4 mg/dL (8.4-10.2); Carbon Dioxide > 40 mmol/L (22-30); Chloride 87 mmol/L (98-107); Estimated CRCL calculation 32 ml/min; Estimated Glomerular Filt Rate 34; Glucose 146 mg/dL (65-110); Potassium 3.9 mmol/L (3.4-5.0); Sodium 137 mmol/L (137-145)
[2021-04-08] MEDS: POTASSIUM CHLORIDE 20 MEQ TABLET.ER PO (09:05)
[2021-04-08] MEDS: predniSONE 20 MG TABLET 40 MG PO (09:05)
[2021-04-08] MEDS: MIDODRINE HCL 2.5 MG TABLET 5 MG PO ×3 (09:05→17:30)
[2021-04-08] MEDS: AZITHROMYCIN 250 MG TABLET 500 MG PO (09:05)
[2021-04-08] MEDS: FERROUS SULFATE 324 MG TABLET PO ×2 (09:05→17:30)
[2021-04-08] MEDS: METOPROLOL SUCCINATE EXT REL 25 MG TABCR PO (09:06)
[2021-04-08] MEDS: HYDROCORTISONE 10 MG TABLET PO ×2 (09:06→17:30)
[2021-04-08] MEDS: metOLazone 2.5 MG TABLET PO ×2 (09:06→17:30)
[2021-04-08] MEDS: allopurinoL 100 MG TABLET PO (09:06)
[2021-04-08] MEDS: FOLIC ACID 1 MG TABLET PO (09:06)
[2021-04-08] MEDS: PANTOPRAZOLE SODIUM IV 40 MG VIAL IV PUSH ×2 (09:07→20:03)
[2021-04-08] MEDS: SALINE 0.65% NAS SOLN 44 ML BTL 2 SPRAY NASAL ×4 (09:08→20:03)
[2021-04-08] MEDS: guaiFENesin 12 HR 600 MG TABCR 1200 MG PO ×2 (09:09→20:03)
[2021-04-08] MEDS: ALBUTEROL SULFATE NEB 2.5 MG/0.5 ML INH INHALATION ×3 (09:46→20:40)
[2021-04-08] MEDS: BUDESONIDE RESPULE NEB 0.5 MG/2 ML AMP INHALATION ×2 (09:46→20:40)
[2021-04-08] MEDS: IPRATROPIUM BR 0.02% INH SOLN 0.5 MG/2.5 ML VIAL INHALATION ×3 (09:46→20:40)
--- NOTE | 2021-04-08 09:55 | PM.PNCARD ---
Progress Note: A&P Assessment and Plan (1) Acute on chronic diastolic CHF (congestive heart failure): Code(s): I50.33 - Acute on chronic diastolic (congestive) heart failure Status: Acute Assessment and Plan: - Her fluid balance is about 2 L positive for this admission. Continue 2mg Bumex IV BID and metolazone 2.5 b.i.d. with close monitoring of renal function and blood pressure. - Slight bump in Cr. Continue close monitoring with daily BMP - Repeat chest x-ray 04/06/21 showed worsening pulmonary vascular congestion - continue aggressive diuresis as tolerated - LE edema significantly improved - DVT prophylaxis with SCDs - Echo showed moderately reduced LV systolic function with an EF measured at 42%. Grade 2 diastolic dysfunction is present. Severe RV enlargement. Severe biatrial enlargement. Significant PHTN, estimated PA systolic pressure 67 mmHg. Severe tricuspid valve regurgitation. (2) Pulmonary hypertension: Code(s): I27.20 - Pulmonary hypertension, unspecified Status: Acute Assessment and Plan: Also has right heart failure and a history of severe pulmonary hypertension. Denies a history of sleep apnea. Echo results above. (3) COPD (chronic obstructive pulmonary disease): Code(s): J44.9 - Chronic obstructive pulmonary disease, unspecified Status: Acute Assessment and Plan: On home O2. Unfortunately continues to smoke. Appreciate pulmonology recommendations (4) Chronic atrial fibrillation: Code(s): I48.20 - Chronic atrial fibrillation, unspecified Status: Acute Assessment and Plan: Rate controlled with metoprolol succinate 25 mg daily. Eliquis discontinued in January due to severe anemia and GI bleeding. Patient continues to have significant anemia so we will avoid anticoagulation. (5) Chronic kidney disease, stage 3: Code(s): N18.30 - Chronic kidney disease, stage 3 unspecified Status: Acute Assessment and Plan: Daily BMP (6) Iron deficiency anemia: Code(s): D50.9 - Iron deficiency anemia, unspecified Status: Acute Assessment and Plan: Follow H&H (7) Chest discomfort: Code(s): R07.89 - Other chest pain Status: Acute Assessment and Plan: Has atypical chest discomfort likely due to CHF. Minimally elevated troponin, flat profile, due to CHF, no evidence of ischemic event or ACS. (8) Adrenal insufficiency: Code(s): E27.40 - Unspecified adrenocortical insufficiency Status: Acute Assessment and Plan: Has a longstanding history of adrenal insufficiency treated with hydrocortisone 10 mg b.i.d. continue steroids. (9) Low blood pressure: Code(s): I95.9 - Hypotension, unspecified Status: Acute Assessment and Plan: History of low blood pressure requiring midodrine. Subjective Date/time seen: 04/08/21 09:55 Interval history: Cardiology follow-up for CHF, AFib Date of service 04/05/2021: Patient is complaining of worsening shortness of breath today. She also continues to have a productive cough. Complains of headache as well. Overall not feeling very well today. Date of service 04/06/2021: Patient is feeling worse today. She is still experiencing shortness of breath - worse than yesterday. Complaining that her compression stockings are too tight. Still complains of cough. Date of service 04/07/2021: She says that her breathing is a little bit easier today. No complaints aside from feeling very sleepy and complaining about her compression stockings being too tight. Lower extremity swelling is improving. Date of service 04/08/2021: Feeling much better today. States, I have ankles!
[2021-04-08] MEDS: BUMETANIDE INJ 2.5 MG/10 ML VIAL 2 MG IV PUSH ×2 (10:18→17:30)
--- NOTE | 2021-04-08 12:21 | PM.IMPN ---
Progress Note: A&P Assessment and Plan (1) CHF (congestive heart failure): Qualifiers: Heart failure chronicity: acute on chronic Heart failure type: combined systolic and diastolic Qualified Code(s): I50.43 - Acute on chronic combined systolic (congestive) and diastolic (congestive) heart failure Code(s): I50.9 - Heart failure, unspecified Status: Acute Assessment and Plan: Patient is a 65-year-old woman with a history of COPD, chronic respiratory failure on 2 L of oxygen 13/03, chronic moderate congestive heart failure with recent admission at [facility], who presented to the emergency room with complaints of right-sided chest pain, headache, and increased shortness of breath over the last 2 days. Initial vitals showed she was afebrile, bradycardic at 58 beats per minute, respiratory rate normal at 18, pulse ox 100% on 2 L, blood pressure stable at 113/60. Initial labs showed a macrocytic anemia with a hemoglobin of 6.8, hematocrit 23%, CO2 elevated at 37, elevated creatinine 1.7, BUN 62[place] [address], troponins are flat at 0.03 x3. ANEMIA- She was given 1 unit of packed red blood cells on 04/04/21 with improvement of her hemoglobin to 8.5, hematocrit 30% today. Iron deficiency anemia with low % saturation, smita, and iron. Continue Ferrous sulfate 325mg PO BID. Patient was found to have positive occult blood in her stool. Due to patient's underlying issues, GI recommends holding off any type of EGD your colonoscopy and have her follow up in [address] 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 Continue PPI twice daily. 04/08/21 H&H stable 8.1/27%. Monitor H&H. Transfuse if hemoglobin less than 7. No signs of acute overt signs of GI bleeding at this time. Acute on chronic diastolic and systolic heart failure in exacerbation on Bumex 2 mg IV BID and Metolazone 2.5 mg BID by cardiology. CXR from 04/06/21 still showing pulmonary vascular congestion. Patient reports improvement of leg swelling and SOB today. Continue diuresis, monitoring weights daily, fluid restriction 1500cc, electrolytes and renal function. History of COPD due to chronic tobacco abuse. I also ordered some DuoNeb treatments for her because she states she does breathing treatments at home with albuterol. Talked to Dr. Karl Rios who saw the patient and does not believe she is in a COPD exacerbation at this time. He did start her on nebulizer treatments and budesonide inhaled steroid. He does not recommend any steroids at this time. He believes most of her shortness of breath is related to right-sided heart failure, anasarca and CHF. She is currently 92% on 2 L via nasal cannula. The patient was not vaccinated for COVID-19. Acute on Chronic Hypercarbic Respiratory Failure-pulmonology was testing the patient on a BiPAP overnight due to her elevated CO2 levels. Patient only tolerated BiPAP until 3:00 a.m. and removed the mask. ABG was completed this morning off the BiPAP but still showed some improvement of her elevated CO2 levels. Appreciate pulmonology is input for further evaluation. Continue monitoring fluid status. Fluid restriction. Strict I&O, daily weights. Supplemental oxygen maintain a saturation greater than 90%. Appreciate GI, cardiology and pulmonology input. (2) Anemia: Qualifiers: Anemia type: iron deficiency Iron deficiency anemia type: unspecified iron deficiency Qualified Code(s): D50.9 - Iron deficiency anemia, unspecified Code(s): D64.9 - Anemia, unspecified Status: Acute Assessment and Plan: SEE ABOVE (3) COPD (chronic obstructive pulmonary disease): Code(s): J44.9 - Chronic obstructive pulmonary disease, unspecified Status: Acute Assessment and Plan: SEE ABOVE. Pulmonary consultatio
[2021-04-08] MEDS: ACETAMINOPHEN 500 MG TABLET PO (17:32)
[2021-04-09] VITALS (19 sets, daily range): BP systolic 106–131; BP diastolic 50–64; PULSE 59–99; RESP 16–22; TEMP 36–36.4; O2SAT 93–100
[2021-04-09] MEDS: IPRATROPIUM BR 0.02% INH SOLN 0.5 MG/2.5 ML VIAL INHALATION ×5 (02:40→23:18)
[2021-04-09] MEDS: ALBUTEROL SULFATE NEB 2.5 MG/0.5 ML INH INHALATION ×5 (02:40→23:17)
[2021-04-09] MEDS: BUDESONIDE RESPULE NEB 0.5 MG/2 ML AMP INHALATION ×2 (09:22→23:06)
[2021-04-09] MEDS: MIDODRINE HCL 2.5 MG TABLET 5 MG PO ×3 (10:04→17:08)
[2021-04-09] MEDS: POTASSIUM CHLORIDE 20 MEQ TABLET.ER PO (10:04)
[2021-04-09] MEDS: BUMETANIDE INJ 2.5 MG/10 ML VIAL 2 MG IV PUSH ×2 (10:05→17:08)
[2021-04-09] MEDS: metOLazone 2.5 MG TABLET PO (10:05)
[2021-04-09] MEDS: guaiFENesin 12 HR 600 MG TABCR 1200 MG PO ×2 (10:05→21:44)
[2021-04-09] MEDS: allopurinoL 100 MG TABLET PO (10:05)
[2021-04-09] MEDS: levoFLOXacin 750 MG TABLET PO (10:06)
[2021-04-09] MEDS: METOPROLOL SUCCINATE EXT REL 25 MG TABCR PO (10:06)
[2021-04-09] MEDS: FOLIC ACID 1 MG TABLET PO (10:06)
[2021-04-09] MEDS: HYDROCORTISONE 10 MG TABLET PO ×2 (10:06→17:08)
[2021-04-09] MEDS: PANTOPRAZOLE SODIUM IV 40 MG VIAL IV PUSH ×2 (10:07→21:44)
[2021-04-09] MEDS: SALINE 0.65% NAS SOLN 44 ML BTL 2 SPRAY NASAL ×4 (10:07→21:44)
[2021-04-09] MEDS: predniSONE 20 MG TABLET 40 MG PO (10:08)
[2021-04-09 10:51] LABS: Hematocrit 28.2 % (37.0-47.0)
--- NOTE | 2021-04-09 10:54 | PCRCNOTE ---
PT IS SET UP WITH TRILOGY UNIT FROM [facility]. THERAPIST FROM [facility] WENT OVER EQUIPMENT WITH HER AND SHE IS ABLE TO TAKE HOME ONCE DISCHARGED. DME TO PROVIDE FOLLOW UP CARE ON TRILOGY, LEYDI (RT) WILL CONTACT DR MURRAY WITH CURRENT SETTINGS.
--- NOTE | 2021-04-09 10:55 | PM.PNCARD ---
Progress Note: A&P Assessment and Plan (1) Acute on chronic diastolic CHF (congestive heart failure): Code(s): I50.33 - Acute on chronic diastolic (congestive) heart failure Status: Acute Assessment and Plan: - Her fluid balance is ~500ml negative for this admission. Continue 2mg Bumex IV BID, d/c metolazone - Cr stable, BUN 73 (59). Will d/c metolazone - LE edema significantly improved - DVT prophylaxis with SCDs - Echo showed moderately reduced LV systolic function with an EF measured at 42%. Grade 2 diastolic dysfunction is present. Severe RV enlargement. Severe biatrial enlargement. Significant PHTN, estimated PA systolic pressure 67 mmHg. Severe tricuspid valve regurgitation. (2) Pulmonary hypertension: Code(s): I27.20 - Pulmonary hypertension, unspecified Status: Acute Assessment and Plan: Also has right heart failure and a history of severe pulmonary hypertension. Denies a history of sleep apnea. Echo results above. (3) COPD (chronic obstructive pulmonary disease): Code(s): J44.9 - Chronic obstructive pulmonary disease, unspecified Status: Acute Assessment and Plan: On home O2. Unfortunately continues to smoke. Appreciate pulmonology recommendations (4) Chronic atrial fibrillation: Code(s): I48.20 - Chronic atrial fibrillation, unspecified Status: Acute Assessment and Plan: Rate controlled with metoprolol succinate 25 mg daily. Eliquis discontinued in January due to severe anemia and GI bleeding. Patient continues to have significant anemia so we will avoid anticoagulation. (5) Chronic kidney disease, stage 3: Code(s): N18.30 - Chronic kidney disease, stage 3 unspecified Status: Acute Assessment and Plan: Daily BMP (6) Iron deficiency anemia: Code(s): D50.9 - Iron deficiency anemia, unspecified Status: Acute Assessment and Plan: Follow H&H (7) Chest discomfort: Code(s): R07.89 - Other chest pain Status: Acute Assessment and Plan: Has atypical chest discomfort likely due to CHF. Minimally elevated troponin, flat profile, due to CHF, no evidence of ischemic event or ACS. (8) Adrenal insufficiency: Code(s): E27.40 - Unspecified adrenocortical insufficiency Status: Acute Assessment and Plan: Has a longstanding history of adrenal insufficiency treated with hydrocortisone 10 mg b.i.d. continue steroids. (9) Low blood pressure: Code(s): I95.9 - Hypotension, unspecified Status: Acute Assessment and Plan: History of low blood pressure requiring midodrine. Subjective Date/time seen: 04/09/21 10:55 Interval history: Cardiology follow-up for CHF, AFib Date of service 04/05/2021: Patient is complaining of worsening shortness of breath today. She also continues to have a productive cough. Complains of headache as well. Overall not feeling very well today. Date of service 04/06/2021: Patient is feeling worse today. She is still experiencing shortness of breath - worse than yesterday. Complaining that her compression stockings are too tight. Still complains of cough. Date of service 04/07/2021: She says that her breathing is a little bit easier today. No complaints aside from feeling very sleepy and complaining about her compression stockings being too tight. Lower extremity swelling is improving. Date of service 04/08/2021: Feeling much better today. States, I have ankles! - LE edema significantly improved. Breathing is better. Date of service 04/09/2021: Continues to improve. Sitting up in the chair today. Says breathing is better but still c/o wheezing. LE edema now m
[2021-04-09 11:11] LABS: Blood Urea Nitrogen 73 mg/dL (7-17); Calcium 9.3 mg/dL (8.4-10.2); Chloride 87 mmol/L (98-107); Estimated CRCL calculation 32 ml/min; Estimated Glomerular Filt Rate 34; Glucose 116 mg/dL (65-110); Potassium 3.6 mmol/L (3.4-5.0); Sodium 137 mmol/L (137-145)
[2021-04-09 11:33] LABS: Carbon Dioxide > 40 mmol/L (22-30)
[2021-04-09] MEDS: FERROUS SULFATE 324 MG TABLET PO ×2 (14:09→17:08)
--- NOTE | 2021-04-09 14:21 | PM.IMPN ---
Progress Note: A&P Assessment and Plan (1) CHF (congestive heart failure): Qualifiers: Heart failure chronicity: acute on chronic Heart failure type: combined systolic and diastolic Qualified Code(s): I50.43 - Acute on chronic combined systolic (congestive) and diastolic (congestive) heart failure Code(s): I50.9 - Heart failure, unspecified Status: Acute Assessment and Plan: Patient is a 65-year-old woman with a history of COPD, chronic respiratory failure on 2 L of oxygen 13/03, chronic moderate congestive heart failure with recent admission at [facility], who presented to the emergency room with complaints of right-sided chest pain, headache, and increased shortness of breath over the last 2 days. Initial vitals showed she was afebrile, bradycardic at 58 beats per minute, respiratory rate normal at 18, pulse ox 100% on 2 L, blood pressure stable at 113/60. Initial labs showed a macrocytic anemia with a hemoglobin of 6.8, hematocrit 23%, CO2 elevated at 37, elevated creatinine 1.7, BUN 62[place] [address], troponins are flat at 0.03 x3. ANEMIA- She was given 1 unit of packed red blood cells on 04/04/21 with improvement of her hemoglobin to 8.5, hematocrit 30% today. Iron deficiency anemia with low % saturation, smita, and iron. Continue Ferrous sulfate 325mg PO BID. Patient was found to have positive occult blood in her stool. Due to patient's underlying issues, GI recommends holding off any type of EGD your colonoscopy and have her follow up in [address] 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 Continue PPI twice daily. 04/08/21 H&H stable 8.0/28%. Monitor H&H. Transfuse if hemoglobin less than 7. No signs of acute overt signs of GI bleeding at this time. Acute on chronic diastolic and systolic heart failure - Cr and BUN with slight increase. Cardiology is discontining Metolazone and continuing IV Bumex 2 mg IV BID. Patient reports improvement of leg swelling and SOB everyday today. Continue diuresis, monitoring weights daily, fluid restriction 1500cc, electrolytes and renal function. History of COPD due to chronic tobacco abuse. I also ordered some DuoNeb treatments for her because she states she does breathing treatments at home with albuterol. Talked to Dr. Karl Riso who saw the patient and does not believe she is in a COPD exacerbation at this time. He did Increase Duonebs to q4hrs, Sputum culture growing Pansensitive Pseudomonas and beta lactamase positive moraxella catarrhalis and antibiotics were switched from PO Azithromycin to Levaquin. Continue budesonide inhaled steroid. He believes most of her shortness of breath is related to right-sided heart failure, anasarca and CHF. She is currently 95% on 1 L via nasal cannula. The patient was not vaccinated for COVID-19. Acute on Chronic Hypercarbic Respiratory Failure-pulmonology was testing the patient on a BiPAP overnight due to her elevated CO2 levels. Patient tolerated BiPAP much better and have set her up with Home BiPAP which is at bedside. Appreciate pulmonology is input for further evaluation. Continue monitoring fluid status. Fluid restriction. Strict I&O, daily weights. Supplemental oxygen maintain a saturation greater than 90%. Appreciate GI, cardiology and pulmonology input. (2) Anemia: Qualifiers: Anemia type: iron deficiency Iron deficiency anemia type: unspecified iron deficiency Qualified Code(s): D50.9 - Iron deficiency anemia, unspecified Code(s): D64.9 - Anemia, unspecified Status: Acute Assessment and Plan: SEE ABOVE (3) COPD (chronic obstructive pulmonary disease): Code(s): J44.9 - Chronic obstructive pulmonary disease, unspecified Status: Acute Assessment and Plan: SEE ABOVE. Pulmonary cons
--- NOTE | 2021-04-09 14:54 | PCOTNOTE ---
Attempted to see Patient for P.M. OT treatment session. Patient refused, stating she had just returned to bed. Patient verbalized, you can try back tomorrow, I'm done today .
[2021-04-10] VITALS (14 sets, daily range): BP systolic 116–135; BP diastolic 63–98; PULSE 66–88; RESP 16–20; TEMP 35.7–36.1; O2SAT 95–97
[2021-04-10] MEDS: IPRATROPIUM BR 0.02% INH SOLN 0.5 MG/2.5 ML VIAL INHALATION ×5 (01:45→19:45)
[2021-04-10] MEDS: ALBUTEROL SULFATE NEB 2.5 MG/0.5 ML INH INHALATION ×5 (01:45→19:44)
[2021-04-10 05:34] LABS: Alveolar/Arterial O2 Gradient 45.1 mmHg; Base Excess ABG 18.4 mEq/l (+/-2.0); Fractional Inspired Oxygen 34 %; HCO3 ABG 43.8 mEq/l (22.0-26.0); Oxygen Content ABG 12.6 %vol (16.0-22.0); Oxygen Saturation ABG 98.8 % (95.0-100.0); Oxyhemoglobin 97.6 % THb (90.0-100.0); PO2 ABG 130.9 mmHg (80.0-100.0); PO2 FiO2 Ratio Arterial Blood 3.85 %
[2021-04-10 05:37] LABS: Site Drawn RIGHT RADIAL; pH ABG 7.503 (7.350-7.450)
[2021-04-10 05:38] LABS: Modified Allen's Test Pass
[2021-04-10 05:43] LABS: Expiratory Pressure 5 cmH2O
[2021-04-10 05:45] LABS: Device BIPAP
[2021-04-10 06:18] LABS: Hematocrit 27.4 % (37.0-47.0); Hemoglobin 8.2 g/dL (12.0-15.0); Mean Corpuscular HGB Conc 29.9 g/dl (32-36); Mean Corpuscular Hemoglobin 29.3 pg (26-34); Mean Corpuscular Volume 97.9 fl (80-100); Platelet Count Result 156 k/mm3 (150-375); Red Cell Distribution Width 16.1 % (11.5-14.5)
[2021-04-10 06:41] LABS: Blood Urea Nitrogen 79 mg/dL (7-17); Calcium 9.4 mg/dL (8.4-10.2); Carbon Dioxide > 40 mmol/L (22-30); Chloride 88 mmol/L (98-107); Estimated CRCL calculation 29 ml/min; Estimated Glomerular Filt Rate 30; Glucose 106 mg/dL (65-110); Magnesium 1.8 mg/dL (1.6-2.3); Potassium 3.8 mmol/L (3.4-5.0); Sodium 138 mmol/L (137-145)
[2021-04-10 08:54] LABS: NT Pro B Type Natriuretic Pept 23800 pg/mL (5-100)
[2021-04-10] MEDS: BUDESONIDE RESPULE NEB 0.5 MG/2 ML AMP INHALATION ×2 (09:00→19:45)
[2021-04-10] MEDS: POTASSIUM CHLORIDE 20 MEQ TABLET.ER PO (09:39)
[2021-04-10] MEDS: predniSONE 10 MG TABLET PO (09:40)
[2021-04-10] MEDS: guaiFENesin 12 HR 600 MG TABCR 1200 MG PO ×2 (09:41→21:05)
[2021-04-10] MEDS: allopurinoL 100 MG TABLET PO (09:41)
[2021-04-10] MEDS: FOLIC ACID 1 MG TABLET PO (09:42)
[2021-04-10] MEDS: MIDODRINE HCL 2.5 MG TABLET 5 MG PO ×3 (09:42→17:13)
[2021-04-10] MEDS: SALINE 0.65% NAS SOLN 44 ML BTL 2 SPRAY NASAL ×4 (09:45→21:05)
[2021-04-10] MEDS: PANTOPRAZOLE SODIUM IV 40 MG VIAL IV PUSH ×2 (09:45→21:05)
[2021-04-10] MEDS: METOPROLOL SUCCINATE EXT REL 25 MG TABCR PO (09:45)
--- NOTE | 2021-04-10 11:23 | PM.PNPUL ---
Progress Note: A&P Assessment and Plan (1) COPD (chronic obstructive pulmonary disease): Code(s): J44.9 - Chronic obstructive pulmonary disease, unspecified Status: Acute Assessment and Plan: Patient with a long history of tobacco use and currently smoking and carries a diagnosis of COPD for 5 years on 2 L nasal cannula at night. No PFTs available. Patient is found to have severe pulmonary hypertension (PASP 67 on 04/03/21, and was 60 on 08/19/2017) with right ventricular systolic dysfunction as well as left ventricular systolic dysfunction. Patient presented with fluid overload and has chronic hypercarbic respiratory failure from her COPD with an ABG on 3 L nasal cannula of 7.38/65/68. home medicines were Symbicort 160-4.5 at 2 puffs b.i.d., ipratropium bromide 17 mcg at 2 puffs q.i.d. 04/06 I do not feel patient is currently having an active COPD exacerbation and agree with continuing her on albuterol 2.5 mg nebs Q 6 hours, ipratropium 0.5 mg nebs q.6 hours and I will place her on inhaled budesonide 500 mcg nebs b.i.d. I will decrease her Symbicort as she is on maximum beta agonists and inhaled corticosteroids with this regimen. She is currently on hydrocortisone 10 mg p.o. b.i.d. and I do not feel a need to increase her steroids at this point. I do not think the patient has a pulmonary infection and do not feel she needs antibiotics at this time. Patient has chronic hypercarbic respiratory failure from her COPD with an elevated PaCO2 of 65 and an admission bicarbonate of 37 on 04/02/2021. The patient would benefit from BiPAP or noninvasive ventilation. I placed the patient on BiPAP today and she could not tolerate the pressures even at 10/5. I placed the patient on noninvasive ventilation with an AVAPS mode with a rate of 16, tidal volume 500, 8 expiratory pressure 5, minimal inspiratory pressure 6, maximal inspiratory pressure 25, inspiratory time of 1.10 seconds, rise of 5 which is our lowest setting and 30%. Patient states that these settings were comfortable and I will continue those tonight and check a blood gas in the morning and an overnight oximetry. I have discussed with the transportation supervisor the need for home noninvasive ventilation with an AVAPS mode and she will initiate this process. I agree with as aggressive diuresis as tolerated by her cardiac and renal systems per the Hospitalists in the Cardiology teams. Her cumulative fluid balance in the computer is positive 1.955 L since admission. The patient states that her edema is better. 04/07 patient states that she is improved since admission but still has some shortness of breath, cough and minimal phlegm production. No wheezes on albuterol, ipratroprium and budesonide nebulizers. On 2 L nasal cannula saturations 92%. She wore her noninvasive ventilation with the AVAPS mode overnight and 30% and stated she did sleep okay. Per the nurse she did sleep throughout the night but then woke up acutely agitated and pulled her mask off. About 10 minutes after her mask was pulled off an ABG was drawn which demonstrated a pH of 7.47/60/50 for on 2 L nasal cannula. Will arrange for AVAPS mode at [facility] with these settings. Patient had an overnight oximetry that demonstrated an average saturation of 92%. Lowest saturation 78%. Time with saturation less than or equal to 88% was 8 minutes or 2% of the monitored time. Will increase FIO2 to 35% tonight. Agree with aggressive diuresis as tolerated by cardiac and renal systems. Cr 1.6, 04/06/2020 the input is charted as 220, out's 250, suspect this is incomplete data as no tompkins. weight has decreased 0.9 kg since admission. On Bumex 2 mg IV b.i.d. and metolazone 2.5 mg p.o. b.i.d., on midodrine as well. 04/08 Patient tells me she continues to get better. She still has some shortness of breath and is not at her baseline. Her cough is about the same and
[2021-04-10] MEDS: FERROUS SULFATE 324 MG TABLET PO ×2 (12:56→17:12)
--- NOTE | 2021-04-10 14:33 | PM.PNCARD ---
Progress Note: A&P Additional Plan Acute on chronic diastolic herart failure, severe RV failure and sever Pulm HTN with sever TR, COPD, chronic AF not on oral anticoagulation because of prior GI bleed, CKD stage 3, Plan change bumex to 2 mg po BID, Subjective Date/time seen: 04/10/21 14:33 Interval history: no acute vents Review of Systems Review of Systems: All systems reviewed & are unremarkable except as noted in HPI and below Exam Const: General: comfortable and no acute distress Other: Able to lie flat HENMT: General nose exam: Normal nares present and no epistaxis Mouth: Yes moist mucous membranes Eyes: Sclera: sclerae normal Pupils: Equal, round and reactive pupils present Neck: Neck: supple and no JVD Carotids: no bruits Resp: Auscultation: rhonchi upper bilaterally and diminished lung sounds bilateral Other: No chest wall tenderness Cardio: Jugular venous distension: JVD Rate: regular rate Rhythm: regular rhythm Heart sounds: no gallops, no murmurs and no rubs GI: GI Palp: Yes Soft to palpation and No Tenderness to palpation present (GI) Auscultation: normal bowel sounds Skin: General skin exam: normal color, rashes and/or lesions noted and no erythema Other: Warm Neuro: Cranial nerves: Yes Equal, round and reactive pupils present Speech: normal speech Other: No obvious focal deficit or facial asymmetry Extrem: General: no edema Other: Normal capillary refills Intact distal pulses. Objective Data Vital Signs Vital Signs: Vital Signs - 24 hr 04/09/21 16:00 04/09/21 21:43 04/09/21 23:20 Temperature 36.3 C L Pulse Rate 84 77 69 Respiratory Rate 16 16 Blood Pressure 131/64 Pulse Oximetry 93 04/09/21 23:21 04/10/21 01:45 04/10/21 05:15 Temperature Pulse Rate 67 70 74 Respiratory Rate 20 16 19 Blood Pressure Pulse Oximetry 95 04/10/21 06:00 04/10/21 09:02 04/10/21 09:30 Temperature 35.7 C L Pulse Rate 73 77 Respiratory Rate 16 18 Blood Pressure 124/98 H Pulse Oximetry 95 97 97 04/10/21 09:45 04/10/21 11:48 04/10/21 14:00 Temperature 36.1 C L Pulse Rate 73 79 88 Respiratory Rate 18 18 Blood Pressure 135/73 Pulse Oximetry 95 Intake/Output Intake/Output: Intake & Output 04/07/21 04/08/21 04/09/21 04/10/21 23:59 23:59 23:59 23:59 Intake Total 479 493 0381 330 Output Total 900 900 Balance 720 60 570 330 Meds/Results Medications: Active Medications Generic Name Dose Route Start Last Admin Trade Name Frepennie PRN Reason Stop Dose Admin Acetaminophen 500 mg 04/03/21 06:25 04/08/21 17:32 Acetaminophen 500 Mg Tablet PO 500 mg Q6H PRN Administration Pain Albuterol 2.5 mg 04/09/21 08:00 04/10/21 11:44 Albuterol Sulfate Neb 2.5 Mg/0.5 Ml Inh INHALATION 2.5 mg Q4HRT FIDEL Administration Allopurinol 100 mg 04/03/21 09:00 04/10/21 09:41 Allopurinol 100 Mg Tablet PO 100 mg DAILY FIDEL Administration Budesonide 0.5 mg 04/06/21 20:00 04/10/21 09:00 Budesonide Respule Neb 0.5 Mg/2 Ml Amp INHALATION 0.5 mg Q12HRT FIDEL Administration Ferrous Sulfate 324 mg 04/09/21 12:00 04/10/21 12:56 Ferrous Sulfate 324 Mg Tablet PO 324 mg 1200,1700 FIDEL Administration Folic Acid 1 mg 04/03/21 09:00 04/10/21 09:42 Folic Acid 1 Mg Tablet PO 1 mg DAILY FIDEL Administration Guaifenesin 1,200 mg 04/04/21 21:00 04/10/21 09:41 Guaifenesin 12 Hr 600 Mg Tabcr PO 1,200 mg Q12HR FIDEL Administration Ipratropium [place] 0.5 mg 04/09/21 08:00 04/10/21 11:44 Ipratropium Br 0.02% Inh Soln 0.5 Mg/2.5 Ml Vial INHALATION 0.5 mg Q4HRT FIDEL Administration Levofloxacin 750 mg 04/09/21 09:00 04/09/21 10:06 Levofloxacin 750 Mg Tablet PO 750 mg Q48HR FIDEL Administration Metoprolol Succinate 25 mg 04/03/21 09:00 04/10/21 09:45 Metoprolol Succinate Ext Rel 25 Mg Tabcr PO 25 mg DAILY FIDEL Administration Midodrine 5 mg 04/03/21 08:00 04/10/21 12:56 Midodr
--- NOTE | 2021-04-10 15:45 | PM.IMPN ---
Progress Note: A&P Assessment and Plan (1) CHF (congestive heart failure): Qualifiers: Heart failure chronicity: acute on chronic Heart failure type: combined systolic and diastolic Qualified Code(s): I50.43 - Acute on chronic combined systolic (congestive) and diastolic (congestive) heart failure Code(s): I50.9 - Heart failure, unspecified Status: Acute Assessment and Plan: Patient is a 65-year-old woman with a history of COPD, chronic respiratory failure on 2 L of oxygen 13/03, chronic moderate congestive heart failure with recent admission at [facility], who presented to the emergency room with complaints of right-sided chest pain, headache, and increased shortness of breath over the last 2 days. Initial vitals showed she was afebrile, bradycardic at 58 beats per minute, respiratory rate normal at 18, pulse ox 100% on 2 L, blood pressure stable at 113/60. Initial labs showed a macrocytic anemia with a hemoglobin of 6.8, hematocrit 23%, CO2 elevated at 37, elevated creatinine 1.7, BUN 62, [place] [address], troponins are flat at 0.03 x3. ANEMIA- She was given 1 unit of packed red blood cells on 04/04/21 with improvement of her hemoglobin to 8.5, hematocrit 30% today. Iron deficiency anemia with low % saturation, smita, and iron. Continue Ferrous sulfate 325mg PO BID. Patient was found to have positive occult blood in her stool. Due to patient's underlying issues, GI recommends holding off any type of EGD your colonoscopy and have her follow up in [address] 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 Continue PPI twice daily. 04/08/21 H&H stable 8.0/28%. Monitor H&H. Transfuse if hemoglobin less than 7. No signs of acute overt signs of GI bleeding at this time. Acute on chronic diastolic and systolic heart failure - Cr and BUN with slight increase. Cardiology stopped IV Bumex and is switching to PO Bumex 2 mg BID. No more leg swelling or crackles to lungs. Continue monitoring, monitoring weights daily, fluid restriction 1500cc, electrolytes and renal function. History of COPD due to chronic tobacco abuse. I also ordered some DuoNeb treatments for her because she states she does breathing treatments at home with albuterol. Talked to Dr. Karl Rios who saw the patient and does not believe she is in a COPD exacerbation at this time. He did Increase Duonebs to q4hrs, Sputum culture growing Pansensitive Pseudomonas and beta lactamase positive moraxella catarrhalis and antibiotics were switched from PO Azithromycin to Levaquin #2. Continue budesonide inhaled steroid. He believes most of her shortness of breath is related to right-sided heart failure, anasarca and CHF. She is currently 95% on 1 L via nasal cannula. The patient was not vaccinated for COVID-19. Acute on Chronic Hypercarbic Respiratory Failure-pulmonology was testing the patient on a BiPAP overnight due to her elevated CO2 levels. Patient tolerated BiPAP much better and have set her up with Home BiPAP which is at bedside. Appreciate pulmonology is input for further evaluation. Continue monitoring fluid status. Fluid restriction. Strict I&O, daily weights. Supplemental oxygen maintain a saturation greater than 90%. Appreciate GI, cardiology and pulmonology input. (2) Anemia: Qualifiers: Anemia type: iron deficiency Iron deficiency anemia type: unspecified iron deficiency Qualified Code(s): D50.9 - Iron deficiency anemia, unspecified Code(s): D64.9 - Anemia, unspecified Status: Acute Assessment and Plan: SEE ABOVE (3) COPD (chronic obstructive pulmonary disease): Code(s): J44.9 - Chronic obstructive pulmonary disease, unspecified Status: Acute Assessment and Plan: SEE ABOVE. Pulmonary consultation placed.
[2021-04-10] MEDS: BUMETANIDE 1 MG TABLET 2 MG PO (17:13)
[2021-04-11] VITALS (10 sets, daily range): BP systolic 116–124; BP diastolic 57–81; PULSE 71–88; RESP 14–20; TEMP 36–37.2; O2SAT 95–100
[2021-04-11 04:34] LABS: Alveolar/Arterial O2 Gradient 129.4 mmHg; Base Excess ABG 18.4 mEq/l (+/-2.0); Fractional Inspired Oxygen 36 %; HCO3 ABG 43.7 mEq/l (22.0-26.0); Oxygen Content ABG 11.6 %vol (16.0-22.0); Oxygen Saturation ABG 92.8 % (95.0-100.0); Oxyhemoglobin 91.4 % THb (90.0-100.0); PCO2 ABG 56.8 mmHg (35.0-45.0); PO2 ABG 61.4 mmHg (80.0-100.0); PO2 FiO2 Ratio Arterial Blood 1.71 %
[2021-04-11 04:37] LABS: Modified Allen's Test Pass; Site Drawn RIGHT RADIAL; pH ABG 7.504 (7.350-7.450)
[2021-04-11 04:38] LABS: Device BIPAP
--- NOTE | 2021-04-11 09:15 | PM.PNCARD ---
Progress Note: A&P Additional Plan Acute on chronic diastolic herart failure, severe RV failure and sever Pulm HTN with sever TR, COPD, chronic AF not on oral anticoagulation because of prior GI bleed, CKD stage 3, Plan cont bumex to 2 mg po BID, f/u renal function tomorrow Subjective Date/time seen: 04/11/21 09:15 Interval history: no acute events Review of Systems Review of Systems: All systems reviewed & are unremarkable except as noted in HPI and below Exam Const: General: comfortable and no acute distress Other: Able to lie flat HENMT: General nose exam: Normal nares present and no epistaxis Mouth: Yes moist mucous membranes Eyes: Sclera: sclerae normal Pupils: Equal, round and reactive pupils present Neck: Neck: supple and JVD Carotids: no bruits Resp: Auscultation: clear to auscultation bilaterally and lung sounds not diminished Other: No chest wall tenderness Cardio: Rate: regular rate Rhythm: regular rhythm Heart sounds: no gallops, no murmurs and no rubs GI: GI Palp: Yes Soft to palpation and No Tenderness to palpation present (GI) Auscultation: normal bowel sounds Skin: General skin exam: normal color, rashes and/or lesions noted and no erythema Other: Warm Neuro: Cranial nerves: Yes Equal, round and reactive pupils present Speech: normal speech Other: No obvious focal deficit or facial asymmetry Extrem: General: no edema Other: Normal capillary refills Intact distal pulses. Objective Data Vital Signs Vital Signs: Vital Signs - 24 hr 04/10/21 09:30 04/10/21 09:45 04/10/21 11:48 Temperature Pulse Rate 73 79 Respiratory Rate 18 Blood Pressure Pulse Oximetry 97 04/10/21 14:00 04/10/21 19:45 04/10/21 19:51 Temperature 36.1 C L Pulse Rate 88 80 72 Respiratory Rate 18 20 20 Blood Pressure 135/73 Pulse Oximetry 95 04/10/21 20:00 04/10/21 21:05 04/10/21 22:39 Temperature 36.1 C L Pulse Rate 87 66 Respiratory Rate 18 19 Blood Pressure 116/63 Pulse Oximetry 97 95 95 04/10/21 22:45 04/11/21 06:00 Temperature 36.1 C L Pulse Rate 88 Respiratory Rate 19 18 Blood Pressure 124/81 Pulse Oximetry 96 100 Intake/Output Intake/Output: Intake & Output 04/08/21 04/09/21 04/10/21 04/11/21 23:59 23:59 23:59 23:59 Intake Total 960 1470 880 50 Output Total 900 900 Balance 60 570 880 50 Meds/Results Medications: Active Medications Generic Name Dose Route Start Last Admin Trade Name Freq PRN Reason Stop Dose Admin Acetaminophen 500 mg 04/03/21 06:25 04/08/21 17:32 Acetaminophen 500 Mg Tablet PO 500 mg Q6H PRN Administration Pain Albuterol 2.5 mg 04/10/21 20:00 04/11/21 02:25 Albuterol Sulfate Neb 2.5 Mg/0.5 Ml Inh INHALATION Not Given Q6HRT [facility] Allopurinol 100 mg 04/03/21 09:00 04/10/21 09:41 Allopurinol 100 Mg Tablet PO 100 mg DAILY FIDEL Administration Budesonide 0.5 mg 04/06/21 20:00 04/10/21 19:45 Budesonide Respule Neb 0.5 Mg/2 Ml Amp INHALATION 0.5 mg Q12HRT [facility] Administration Bumetanide 2 mg 04/10/21 17:00 04/10/21 17:13 Bumetanide 1 Mg Tablet PO 2 mg BID FIDEL Administration Ferrous Sulfate 324 mg 04/09/21 12:00 04/10/21 17:12 Ferrous Sulfate 324 Mg Tablet PO 324 mg 1200,1700 FIDEL Administration Folic Acid 1 mg 04/03/21 09:00 04/10/21 09:42 Folic Acid 1 Mg Tablet PO 1 mg DAILY FIDEL Administration Guaifenesin 1,200 mg 04/04/21 21:00 04/10/21 21:05 Guaifenesin 12 Hr 600 Mg Tabcr PO 1,200 mg Q12HR FIDEL Administration Ipratropium Larsen 0.5 mg 04/10/21 20:00 04/11/21 02:25 Ipratropium Br 0.02% Inh Soln 0.5 Mg/2.5 Ml Vial INHALATION Not Given Q6HRT [facility] Levofloxacin 750 mg 04/09/21 09:00 04/09/21 10:06 Levofloxacin 750 Mg Tablet PO 750 mg Q48HR FIDEL Administration Metoprolol Succinate 25 mg 04/03/21 09:00 04/10/21 09:45 Metoprolol Succinate Ext Rel 25 Mg Tabcr PO 25 mg DAILY FIDEL Administration Midodrine 5
[2021-04-11] MEDS: POTASSIUM CHLORIDE 20 MEQ TABLET.ER PO (09:45)
[2021-04-11] MEDS: MIDODRINE HCL 2.5 MG TABLET 5 MG PO ×3 (09:45→18:11)
[2021-04-11] MEDS: predniSONE 10 MG TABLET PO (09:45)
[2021-04-11] MEDS: guaiFENesin 12 HR 600 MG TABCR 1200 MG PO ×2 (09:46→20:02)
[2021-04-11] MEDS: BUMETANIDE 1 MG TABLET 2 MG PO ×2 (09:46→18:10)
[2021-04-11] MEDS: levoFLOXacin 750 MG TABLET PO (09:48)
[2021-04-11] MEDS: METOPROLOL SUCCINATE EXT REL 25 MG TABCR PO (09:48)
[2021-04-11] MEDS: FOLIC ACID 1 MG TABLET PO (09:48)
[2021-04-11] MEDS: allopurinoL 100 MG TABLET PO (09:48)
[2021-04-11] MEDS: PANTOPRAZOLE SODIUM IV 40 MG VIAL IV PUSH ×2 (09:48→20:01)
[2021-04-11] MEDS: SALINE 0.65% NAS SOLN 44 ML BTL 2 SPRAY NASAL ×4 (09:49→20:01)
[2021-04-11 10:25] LABS: Hematocrit 28.2 % (37.0-47.0); Hemoglobin 8.1 g/dL (12.0-15.0)
[2021-04-11 10:43] LABS: Albumin Level 3.9 g/dL (3.5-5.1); Blood Urea Nitrogen 85 mg/dL (7-17); Calcium 9.2 mg/dL (8.4-10.2); Carbon Dioxide > 40 mmol/L (22-30); Chloride 87 mmol/L (98-107); Estimated CRCL calculation 30 ml/min; Estimated Glomerular Filt Rate 32; Glucose 106 mg/dL (65-110); Phosphorus 3.6 mg/dL (2.5-4.5); Potassium 3.6 mmol/L (3.4-5.0); Sodium 139 mmol/L (137-145)
[2021-04-11 11:07] LABS: Magnesium 1.8 mg/dL (1.6-2.3)
[2021-04-11] MEDS: FERROUS SULFATE 324 MG TABLET PO ×2 (12:43→18:10)
[2021-04-11] MEDS: ACETAMINOPHEN 500 MG TABLET PO (12:44)
--- NOTE | 2021-04-11 14:19 | PM.IMPN ---
Progress Note: A&P Assessment and Plan (1) CHF (congestive heart failure): Qualifiers: Heart failure chronicity: acute on chronic Heart failure type: combined systolic and diastolic Qualified Code(s): I50.43 - Acute on chronic combined systolic (congestive) and diastolic (congestive) heart failure Code(s): I50.9 - Heart failure, unspecified Status: Acute Assessment and Plan: Patient is a 65-year-old woman with a history of COPD, chronic respiratory failure on 2 L of oxygen 13/03, chronic moderate congestive heart failure with recent admission at [facility], who presented to the emergency room with complaints of right-sided chest pain, headache, and increased shortness of breath over the last 2 days. Initial vitals showed she was afebrile, bradycardic at 58 beats per minute, respiratory rate normal at 18, pulse ox 100% on 2 L, blood pressure stable at 113/60. Initial labs showed a macrocytic anemia with a hemoglobin of 6.8, hematocrit 23%, CO2 elevated at 37, elevated creatinine 1.7, BUN 62, [place] [id number], troponins are flat at 0.03 x3. ANEMIA- She was given 1 unit of packed red blood cells on 04/04/21 with improvement of her hemoglobin to 8.5, hematocrit 30% today. Iron deficiency anemia with low % saturation, smita, and iron. Continue Ferrous sulfate 325mg PO BID. Patient was found to have positive occult blood in her stool. Due to patient's underlying issues, GI recommends holding off any type of EGD your colonoscopy and have her follow up in [address] 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 Continue PPI twice daily. 04/11/21 H&H stable 8.1/28%. Monitor H&H. Transfuse if hemoglobin less than 7. No signs of acute overt signs of GI bleeding at this time. Acute on chronic diastolic and systolic heart failure - Cr and BUN stable today. Cardiology stopped IV Bumex and switched to PO Bumex 2 mg BID 04/10/21. No more leg swelling or crackles to lungs. Continue monitoring, monitoring weights daily, fluid restriction 1500cc, electrolytes and renal function. History of COPD due to chronic tobacco abuse. I also ordered some DuoNeb treatments for her because she states she does breathing treatments at home with albuterol. Talked to Dr. Karl Rios who saw the patient and does not believe she is in a COPD exacerbation at this time. He did Increase Duonebs to q4hrs, Sputum culture growing Pansensitive Pseudomonas and beta lactamase positive moraxella catarrhalis and antibiotics were switched from PO Azithromycin to Levaquin #3. Continue budesonide inhaled steroid. He believes most of her shortness of breath is related to right-sided heart failure, anasarca and CHF. She is resting comfortably on 1L via nasal cannula. The patient was not vaccinated for COVID-19. Will get Home Oxygen evaluation completed tomorrow by respiratory. Acute on Chronic Hypercarbic Respiratory Failure-pulmonology was testing the patient on a BiPAP overnight due to her elevated CO2 levels. Patient tolerated BiPAP much better and have set her up with Home BiPAP which is at bedside. Dr. Barajas is making some adjustments to her home BiPAP settings based on the results of her ABG this morning. Appreciate pulmonology is input for further evaluation. Continue monitoring fluid status. Fluid restriction. Strict I&O, daily weights. Supplemental oxygen maintain a saturation greater than 90%. Appreciate GI, cardiology and pulmonology input. (2) Anemia: Qualifiers: Anemia type: iron deficiency Iron deficiency anemia type: unspecified iron deficiency Qualified Code(s): D50.9 - Iron deficiency anemia, unspecified Code(s): D64.9 - Anemia, unspecified Status: Acute Assessment and Plan: SEE ABOVE (3) COPD (chronic obstructive pulmonary disease):
[2021-04-11] MEDS: IPRATROPIUM BR 0.02% INH SOLN 0.5 MG/2.5 ML VIAL INHALATION ×2 (14:52→20:17)
[2021-04-11] MEDS: ALBUTEROL SULFATE NEB 2.5 MG/0.5 ML INH INHALATION ×2 (14:52→20:17)
[2021-04-11] MEDS: BUDESONIDE RESPULE NEB 0.5 MG/2 ML AMP INHALATION (20:17)
[2021-04-12] VITALS (19 sets, daily range): BP systolic 109–126; BP diastolic 57–71; PULSE 52–85; RESP 14–20; TEMP 36–36.9; O2SAT 87–99
[2021-04-12] MEDS: IPRATROPIUM BR 0.02% INH SOLN 0.5 MG/2.5 ML VIAL INHALATION ×2 (03:58→08:08)
[2021-04-12] MEDS: ALBUTEROL SULFATE NEB 2.5 MG/0.5 ML INH INHALATION ×2 (03:58→08:08)
[2021-04-12 06:20] LABS: Hematocrit 26.9 % (37.0-47.0); Hemoglobin 8.1 g/dL (12.0-15.0); Mean Corpuscular HGB Conc 30.1 g/dl (32-36); Mean Corpuscular Hemoglobin 28.8 pg (26-34); Mean Corpuscular Volume 95.7 fl (80-100); Mean Platelet Volume 9.8 fl (7.4-10.4); Platelet Count Result 158 k/mm3 (150-375); Red Blood Count 2.81 M/mm3 (4.2-5.4); White Blood Count 6.6 K/mm3 (4.5-10.0)
[2021-04-12 06:55] LABS: Albumin Level 3.8 g/dL (3.5-5.1); Blood Urea Nitrogen 83 mg/dL (7-17); Calcium 9.3 mg/dL (8.4-10.2); Carbon Dioxide > 40 mmol/L (22-30); Chloride 85 mmol/L (98-107); Estimated CRCL calculation 25 ml/min; Estimated Glomerular Filt Rate 27; Glucose 94 mg/dL (65-110); Magnesium 1.8 mg/dL (1.6-2.3); Phosphorus 3.9 mg/dL (2.5-4.5); Potassium 3.9 mmol/L (3.4-5.0); Sodium 139 mmol/L (137-145)
[2021-04-12] MEDS: BUDESONIDE RESPULE NEB 0.5 MG/2 ML AMP INHALATION (08:07)
--- NOTE | 2021-04-12 09:11 | PM.PNPUL ---
Progress Note: A&P Assessment and Plan (1) COPD (chronic obstructive pulmonary disease): Code(s): J44.9 - Chronic obstructive pulmonary disease, unspecified Status: Acute Assessment and Plan: Patient with a long history of tobacco use and currently smoking and carries a diagnosis of COPD for 5 years on 2 L nasal cannula at night. No PFTs available. Patient is found to have severe pulmonary hypertension (PASP 67 on 04/03/21, and was 60 on 08/19/2017) with right ventricular systolic dysfunction as well as left ventricular systolic dysfunction. Patient presented with fluid overload and has chronic hypercarbic respiratory failure from her COPD with an ABG on 3 L nasal cannula of 7.38/65/68. home medicines were Symbicort 160-4.5 at 2 puffs b.i.d., ipratropium bromide 17 mcg at 2 puffs q.i.d. 04/06 I do not feel patient is currently having an active COPD exacerbation and agree with continuing her on albuterol 2.5 mg nebs Q 6 hours, ipratropium 0.5 mg nebs q.6 hours and I will place her on inhaled budesonide 500 mcg nebs b.i.d. I will decrease her Symbicort as she is on maximum beta agonists and inhaled corticosteroids with this regimen. She is currently on hydrocortisone 10 mg p.o. b.i.d. and I do not feel a need to increase her steroids at this point. I do not think the patient has a pulmonary infection and do not feel she needs antibiotics at this time. Patient has chronic hypercarbic respiratory failure from her COPD with an elevated PaCO2 of 65 and an admission bicarbonate of 37 on 04/02/2021. The patient would benefit from BiPAP or noninvasive ventilation. I placed the patient on BiPAP today and she could not tolerate the pressures even at 10/5. I placed the patient on noninvasive ventilation with an AVAPS mode with a rate of 16, tidal volume 500, 8 expiratory pressure 5, minimal inspiratory pressure 6, maximal inspiratory pressure 25, inspiratory time of 1.10 seconds, rise of 5 which is our lowest setting and 30%. Patient states that these settings were comfortable and I will continue those tonight and check a blood gas in the morning and an overnight oximetry. I have discussed with the respiratory therapy aide the need for home noninvasive ventilation with an AVAPS mode and she will initiate this process. I agree with as aggressive diuresis as tolerated by her cardiac and renal systems per the Hospitalists in the Cardiology teams. Her cumulative fluid balance in the computer is positive 1.955 L since admission. The patient states that her edema is better. 04/07 patient states that she is improved since admission but still has some shortness of breath, cough and minimal phlegm production. No wheezes on albuterol, ipratroprium and budesonide nebulizers. On 2 L nasal cannula saturations 92%. She wore her noninvasive ventilation with the AVAPS mode overnight and 30% and stated she did sleep okay. Per the nurse she did sleep throughout the night but then woke up acutely agitated and pulled her mask off. About 10 minutes after her mask was pulled off an ABG was drawn which demonstrated a pH of 7.47/60/50 for on 2 L nasal cannula. Will arrange for AVAPS mode at [facility] with these settings. Patient had an overnight oximetry that demonstrated an average saturation of 92%. Lowest saturation 78%. Time with saturation less than or equal to 88% was 8 minutes or 2% of the monitored time. Will increase FIO2 to 35% tonight. Agree with aggressive diuresis as tolerated by cardiac and renal systems. Cr 1.6, 04/06/2020 the input is charted as 220, out's 250, suspect this is incomplete data as no tompkins. weight has decreased 0.9 kg since admission. On Bumex 2 mg IV b.i.d. and metolazone 2.5 mg p.o. b.i.d., on midodrine as well. Prednisone for gout. 04/08 Patient tells me she continues to get better. She still has some shortness of breath and is not at her baseline. Her cough
[2021-04-12] MEDS: FOLIC ACID 1 MG TABLET PO (09:32)
[2021-04-12] MEDS: BUMETANIDE 1 MG TABLET 2 MG PO ×2 (09:32→17:07)
--- NOTE | 2021-04-12 09:32 | HOMEO2EVAL ---
Evaluation was performed at [facility] Home Oxygen Evaluation RC: Home Oxygen (O2) Evaluation Start: 04/12/21 06:00 Freq: ONCE Status: Active Protocol: RPE Activity Type Activity Date Activity User E-Sign Co-Sign Detail Recorded Client Recorded Date Recorded By Document 04/12/21 09:00 KRM [email or web address] 04/12/21 09:28 KRM Document 04/12/21 09:02 KRM [email or web address] 04/12/21 09:28 KRM Document 04/12/21 09:05 KRM [email or web address] 04/12/21 09:28 KRM Document 04/12/21 09:08 KRM [email or web address] 04/12/21 09:28 KRM Document 04/12/21 09:15 KRM [email or web address] 04/12/21 09:28 KRM 04/12/21 04/12/21 04/12/21 09:00 09:02 09:05 Home O2 Evaluation Test Phase Resting Resting Resting Oxygen Delivery Room Air Nasal Cannula Nasal Cannula Oxygen Flow Rate (L/min) 1 2 Pulse Oximetry (90-100 %) 87 L 87 L 92 Home Oxygen Evaluation Comments Treatment Charges O2 Evaluation - Inpatient 04/12/21 04/12/21 09:08 09:15 Home O2 Evaluation Test Phase Exercise Resting Oxygen Delivery Nasal Cannula Nasal Cannula Oxygen Flow Rate (L/min) 2 2 Pulse Oximetry (90-100 %) Home Oxygen Evaluation Comments PT REQUIRES 2 L AT REST AND WITH EXERTION Treatment Charges
[2021-04-12] MEDS: METOPROLOL SUCCINATE EXT REL 25 MG TABCR PO (09:33)
[2021-04-12] MEDS: allopurinoL 100 MG TABLET PO (09:33)
[2021-04-12] MEDS: MIDODRINE HCL 2.5 MG TABLET 5 MG PO ×3 (09:33→17:07)
--- NOTE | 2021-04-12 09:33 | PCPTNOTE ---
Attempted to see patient for PT at this time, however patient refused. Will check back later if time allows.
[2021-04-12] MEDS: guaiFENesin 12 HR 600 MG TABCR 1200 MG PO ×2 (09:34→20:21)
[2021-04-12] MEDS: predniSONE 10 MG TABLET PO (09:34)
[2021-04-12] MEDS: POTASSIUM CHLORIDE 20 MEQ TABLET.ER PO (09:34)
[2021-04-12] MEDS: SALINE 0.65% NAS SOLN 44 ML BTL 2 SPRAY NASAL ×4 (09:35→20:21)
[2021-04-12] MEDS: PANTOPRAZOLE SODIUM IV 40 MG VIAL IV PUSH ×2 (09:35→20:21)
--- NOTE | 2021-04-12 11:24 | PM.PNCARD ---
Progress Note: A&P Assessment and Plan (1) Acute on chronic diastolic CHF (congestive heart failure): Code(s): I50.33 - Acute on chronic diastolic (congestive) heart failure Status: Acute Assessment and Plan: Echo showed moderately reduced LV systolic function with an EF measured at 42%. Grade 2 diastolic dysfunction is present. Severe RV enlargement. Severe biatrial enlargement. Significant PHTN, estimated PA systolic pressure 67 mmHg. Severe tricuspid valve regurgitation. - Her fluid balance is ~900ml negative for this admission. Continue 2mg Bumex p.p. BID - LE edema significantly improved -Cr increased (2.2). Close monitoring as outpatient and short interval follow up with pie filler Subjective Date/time seen: 04/12/21 11:24 Cardiology follow up for CHF Date of service 04/05/2021: Patient is complaining of worsening shortness of breath today. She also continues to have a productive cough. Complains of headache as well. Overall not feeling very well today. Date of service 04/06/2021: Patient is feeling worse today. She is still experiencing shortness of breath - worse than yesterday. Complaining that her compression stockings are too tight. Still complains of cough. Date of service 04/07/2021: She says that her breathing is a little bit easier today. No complaints aside from feeling very sleepy and complaining about her compression stockings being too tight. Lower extremity swelling is improving. Date of service 04/08/2021: Feeling much better today. States, I have ankles! - LE edema significantly improved. Breathing is better. Date of service 04/09/2021: Continues to improve. Sitting up in the chair today. Says breathing is better but still c/o wheezing. LE edema now mild. Date of service 04/12/2021: Feeling well. LE edema has resolved. Still on O2 per [place] (baseline). She's eager to go home. From a cardiac perspective she is stable. Should follow up with her regular pie filler, Dr. Ozuna within a couple of weeks from discharge. Review of Systems Review of Systems: All systems reviewed & are unremarkable except as noted in HPI and below Constitutional: Constitutional: Reports fatigue, Reports headache(s), Reports lethargy and Reports weakness Eyes: Eyes: Reports no additional eye complaints ENT: Reports headache(s) and Denies epistaxis Cardiovascular: Cardiovascular: Reports chest pain, Denies diaphoresis, Reports pedal edema, Reports leg edema, Denies lightheadedness, Denies palpitations, Reports dyspnea and Reports dyspnea on exertion Respiratory: Respiratory: Reports cough, Denies hemoptysis, Reports dyspnea and Reports dyspnea on exertion Gastrointestinal: Gastrointestinal: Denies abdominal pain, Denies melena and Denies hematochezia Genitourinary: Genitourinary: Denies hematuria Musculoskeletal: Musculoskeletal: Reports no additional musculoskeletal complaints Integumentary/Breasts: Skin/Breast: Denies rash Neurologic: Reports headache(s) and Reports weakness Psychiatric: Psychiatric: Reports anxiety and Reports depression Endocrine: Endocrine: Reports fatigue and Denies palpitations Exam Narrative: Const: General: comfortable and no acute distress Other: Able to lie flat HENMT: Head: normal to inspection General nose exam: Normal nares present and no epistaxis Mouth: Yes moist mucous membranes Other: missing teeth, dentition in poor repair Eyes: General: appearance normal, both eyes and all related structures Sclera: sclerae normal Pupils: Equal, round and reactive pupils present EOM: EOMs intact bilaterally Neck: Neck: supple Thyroid: thyroid normal Carotids: no bruits Lymphatic: lymphadenopathy not noted Resp: Auscultation: clear to auscultation bilaterally, rales diffuse, rhonchi upper bilaterally and wheezes expiratory wheezes Other: No chest wall tenderness Cardio: Rate: regular rate Rhythm: abnormal rhythm irregularly irregu
--- NOTE | 2021-04-12 11:34 | PCDIET ---
Weekly nutritional screen. Patient is tolerating current diet with adequate intake. No weight loss reported. No nutritional needs at this time.
[2021-04-12] MEDS: FERROUS SULFATE 324 MG TABLET PO ×2 (12:13→17:07)
--- NOTE | 2021-04-12 13:52 | PCOTNOTE ---
Attempted to see patient for OT, patient stated Everytime I fall asleep someone comes in here and wakes me up. All I want to do is take a nap. Patient encouraged to participate in therapy to maintain her strength and overall health, however, patient verbalized she is supposed to be discharged and continued to decline therapy. Will continue plan of care tomorrow if patient is still admitted.
--- NOTE | 2021-04-12 17:16 | PM.IMPN ---
Progress Note: A&P Assessment and Plan (1) CHF (congestive heart failure): Qualifiers: Heart failure chronicity: acute on chronic Heart failure type: combined systolic and diastolic Qualified Code(s): I50.43 - Acute on chronic combined systolic (congestive) and diastolic (congestive) heart failure Code(s): I50.9 - Heart failure, unspecified Status: Acute Assessment and Plan: Patient is a 65-year-old woman with a history of COPD, chronic respiratory failure on 2 L of oxygen 13/03, chronic moderate congestive heart failure with recent admission at [facility], who presented to the emergency room with complaints of right-sided chest pain, headache, and increased shortness of breath over the last 2 days. Initial vitals showed she was afebrile, bradycardic at 58 beats per minute, respiratory rate normal at 18, pulse ox 100% on 2 L, blood pressure stable at 113/60. Initial labs showed a macrocytic anemia with a hemoglobin of 6.8, hematocrit 23%, CO2 elevated at 37, elevated creatinine 1.7, BUN 62[place] [address], troponins are flat at 0.03 x3. ANEMIA- She was given 1 unit of packed red blood cells on 04/04/21 with improvement of her hemoglobin to 8.5, hematocrit 30% today. Iron deficiency anemia with low % saturation, smita, and iron. Continue Ferrous sulfate 325mg PO BID. Patient was found to have positive occult blood in her stool. Due to patient's underlying issues, GI recommends holding off any type of EGD your colonoscopy and have her follow up in [address] 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 Continue PPI twice daily. 04/11/21 H&H stable 8.1/26%. Monitor H&H. Transfuse if hemoglobin less than 7. No signs of acute overt signs of GI bleeding at this time. Acute on chronic diastolic and systolic heart failure - Cr and BUN stable today. Cardiology stopped IV Bumex and switched to PO Bumex 2 mg BID 04/10/21. No more leg swelling or crackles to lungs. Continue monitoring, monitoring weights daily, fluid restriction 1500cc, electrolytes and renal function. History of COPD due to chronic tobacco abuse. I also ordered some DuoNeb treatments for her because she states she does breathing treatments at home with albuterol. Talked to Dr. Karl Rios who saw the patient and does not believe she is in a COPD exacerbation at this time. He did Increase Duonebs to q4hrs, Sputum culture growing Pansensitive Pseudomonas and beta lactamase positive moraxella catarrhalis and antibiotics were switched from PO Azithromycin to Levaquin #3. Continue budesonide inhaled steroid. He believes most of her shortness of breath is related to right-sided heart failure, anasarca and CHF. She is resting comfortably on 1L via nasal cannula. The patient was not vaccinated for COVID-19. Will get Home Oxygen evaluation completed tomorrow by respiratory. Acute on Chronic Hypercarbic Respiratory Failure-pulmonology was testing the patient on a BiPAP overnight due to her elevated CO2 levels. Patient tolerated BiPAP much better and have set her up with Home BiPAP which is at bedside. Dr. Barajas is making some adjustments to her home BiPAP settings based on the results of her ABG this morning. Appreciate pulmonology is input for further evaluation. Continue monitoring fluid status. Fluid restriction. Strict I&O, daily weights. Supplemental oxygen maintain a saturation greater than 90%. Appreciate GI, cardiology and pulmonology input. (2) Acute on chronic renal failure: Code(s): N17.9 - Acute kidney failure, unspecified; N18.9 - Chronic kidney disease, unspecified Status: Acute Assessment and Plan: Concerned with increasing creatinine to 2.2 today and BUN at 83. I discussed with Cardiology who does not recommend making any adjustments at this time. Instead of the patient going home I would rather hold h
[2021-04-13] VITALS (8 sets, daily range): BP systolic 100–120; BP diastolic 52–68; PULSE 72–86; RESP 16–20; TEMP 36–37.2; O2SAT 91–100
[2021-04-13 06:07] LABS: Hematocrit 30.7 % (37.0-47.0); Mean Corpuscular HGB Conc 29.3 g/dl (32-36); Mean Corpuscular Hemoglobin 29.3 pg (26-34); Mean Platelet Volume 10.3 fl (7.4-10.4); Platelet Count Result 167 k/mm3 (150-375); Red Blood Count 3.07 M/mm3 (4.2-5.4); Red Cell Distribution Width 15.9 % (11.5-14.5); White Blood Count 6.5 K/mm3 (4.5-10.0)
[2021-04-13 06:19] LABS: Albumin Level 3.8 g/dL (3.5-5.1); Blood Urea Nitrogen 86 mg/dL (7-17); Calcium 9.4 mg/dL (8.4-10.2); Carbon Dioxide > 40 mmol/L (22-30); Chloride 81 mmol/L (98-107); Estimated CRCL calculation 21 ml/min; Estimated Glomerular Filt Rate 22; Glucose 111 mg/dL (65-110); Magnesium 1.8 mg/dL (1.6-2.3); Phosphorus 4.2 mg/dL (2.5-4.5); Potassium 3.8 mmol/L (3.4-5.0); Sodium 137 mmol/L (137-145)
--- NOTE | 2021-04-13 08:33 | P.PNPL_ITS ---
Progress Note: A&P Assessment and Plan (1) COPD (chronic obstructive pulmonary disease): Code(s): J44.9 - Chronic obstructive pulmonary disease, unspecified Status: Acute Assessment and Plan: Patient with a long history of tobacco use and currently smoking and carries a diagnosis of COPD for 5 years on 2 L nasal cannula at night. No PFTs available. Patient is found to have severe pulmonary hypertension (PASP 67 on 04/03/21, and was 60 on 08/19/2017) with right ventricular systolic dysfunction as well as left ventricular systolic dysfunction. Patient presented with fluid overload and has chronic hypercarbic respiratory failure from her COPD with an ABG on 3 L nasal cannula of 7.38/65/68. home medicines were Symbicort 160-4.5 at 2 puffs b.i.d., ipratropium bromide 17 mcg at 2 puffs q.i.d. 04/06 I do not feel patient is currently having an active COPD exacerbation and agree with continuing her on albuterol 2.5 mg nebs Q 6 hours, ipratropium 0.5 mg nebs q.6 hours and I will place her on inhaled budesonide 500 mcg nebs b.i.d. I will decrease her Symbicort as she is on maximum beta agonists and inhaled corticosteroids with this regimen. She is currently on hydrocortisone 10 mg p.o. b.i.d. and I do not feel a need to increase her steroids at this point. I do not think the patient has a pulmonary infection and do not feel she needs antibiotics at this time. Patient has chronic hypercarbic respiratory failure from her COPD with an elevated PaCO2 of 65 and an admission bicarbonate of 37 on 04/02/2021. The patient would benefit from BiPAP or noninvasive ventilation. I placed the patient on BiPAP today and she could not tolerate the pressures even at 10/5. I placed the patient on noninvasive ventilation with an AVAPS mode with a rate of 16, tidal volume 500, 8 expiratory pressure 5, minimal inspiratory pressure 6, maximal inspiratory pressure 25, inspiratory time of 1.10 seconds, rise of 5 which is our lowest setting and 30%. Patient states that these settings were comfortable and I will continue those tonight and check a blood gas in the morning and an overnight oximetry. I have discussed with the sales representative supervisor the need for home noninvasive ventilation with an AVAPS mode and she will initiate this process. I agree with as aggressive diuresis as tolerated by her cardiac and renal systems per the Hospitalists in the Cardiology teams. Her cumulative fluid balance in the computer is positive 1.955 L since admission. The patient states that her edema is better. 04/07 patient states that she is improved since admission but still has some shortness of breath, cough and minimal phlegm production. No wheezes on albuterol, ipratroprium and budesonide nebulizers. On 2 L nasal cannula saturations 92%. She wore her noninvasive ventilation with the AVAPS mode overnight and 30% and stated she did sleep okay. Per the nurse she did sleep throughout the night but then woke up acutely agitated and pulled her mask off. About 10 minutes after her mask was pulled off an ABG was drawn which demonstrated a pH of 7.47/60/50 for on 2 L nasal cannula. Will arrange for AVAPS mode at [facility] with these settings. Patient had an overnight oximetry that demonstrated an average saturation of 92%. Lowest saturation 78%. Time with saturation less than or equal to 88% was 8 minutes or 2% of the monitored time. Will increase FIO2 to 35% tonight. Agree with aggressive diuresis as tolerated by cardiac and renal systems. Cr 1.6, 04/06/2020 the input is charted as 220, out's 250, suspect this is incomplete data as no leda. weight has decreased 0.9 kg since admission. On Bumex 2 mg IV b.i.d. and metolazone 2.5 mg p.o. b.i
[2021-04-13] MEDS: POTASSIUM CHLORIDE 20 MEQ TABLET.ER PO (09:33)
[2021-04-13] MEDS: MIDODRINE HCL 2.5 MG TABLET 5 MG PO ×3 (09:33→16:42)
[2021-04-13] MEDS: predniSONE 10 MG TABLET PO (09:33)
[2021-04-13] MEDS: guaiFENesin 12 HR 600 MG TABCR 1200 MG PO ×2 (09:34→20:07)
[2021-04-13] MEDS: BUMETANIDE 1 MG TABLET 2 MG PO (09:34)
[2021-04-13] MEDS: allopurinoL 100 MG TABLET PO (09:34)
[2021-04-13] MEDS: FOLIC ACID 1 MG TABLET PO (09:34)
[2021-04-13] MEDS: levoFLOXacin 750 MG TABLET PO (09:34)
[2021-04-13] MEDS: METOPROLOL SUCCINATE EXT REL 25 MG TABCR PO (09:34)
[2021-04-13] MEDS: PANTOPRAZOLE SODIUM IV 40 MG VIAL IV PUSH ×2 (09:35→20:07)
[2021-04-13] MEDS: SALINE 0.65% NAS SOLN 44 ML BTL 2 SPRAY NASAL ×4 (09:35→20:07)
[2021-04-13] MEDS: ACETAMINOPHEN 500 MG TABLET PO (09:36)
--- NOTE | 2021-04-13 09:41 | PM.PNCARD ---
Progress Note: A&P Assessment and Plan (1) Acute on chronic diastolic CHF (congestive heart failure): Code(s): I50.33 - Acute on chronic diastolic (congestive) heart failure Status: Acute Assessment and Plan: - Her fluid balance is ~500ml negative for this admission. Continue 2mg Bumex IV BID, d/c metolazone - Cr stable, BUN 73 (59). Will d/c metolazone - LE edema significantly improved - DVT prophylaxis with SCDs - Echo showed moderately reduced LV systolic function with an EF measured at 42%. Grade 2 diastolic dysfunction is present. Severe RV enlargement. Severe biatrial enlargement. Significant PHTN, estimated PA systolic pressure 67 mmHg. Severe tricuspid valve regurgitation. (2) Pulmonary hypertension: Code(s): I27.20 - Pulmonary hypertension, unspecified Status: Acute Assessment and Plan: Also has right heart failure and a history of severe pulmonary hypertension. Denies a history of sleep apnea. Echo results above. (3) COPD (chronic obstructive pulmonary disease): Code(s): J44.9 - Chronic obstructive pulmonary disease, unspecified Status: Acute Assessment and Plan: On home O2. Unfortunately continues to smoke. Appreciate pulmonology recommendations (4) Chronic atrial fibrillation: Code(s): I48.20 - Chronic atrial fibrillation, unspecified Status: Acute Assessment and Plan: Rate controlled with metoprolol succinate 25 mg daily. Eliquis discontinued in January due to severe anemia and GI bleeding. Patient continues to have significant anemia so we will avoid anticoagulation. (5) Chronic kidney disease, stage 3: Code(s): N18.30 - Chronic kidney disease, stage 3 unspecified Status: Acute Assessment and Plan: Daily BMP (6) Iron deficiency anemia: Code(s): D50.9 - Iron deficiency anemia, unspecified Status: Acute Assessment and Plan: Follow H&H (7) Chest discomfort: Code(s): R07.89 - Other chest pain Status: Acute Assessment and Plan: Has atypical chest discomfort likely due to CHF. Minimally elevated troponin, flat profile, due to CHF, no evidence of ischemic event or ACS. (8) Adrenal insufficiency: Code(s): E27.40 - Unspecified adrenocortical insufficiency Status: Acute Assessment and Plan: Has a longstanding history of adrenal insufficiency treated with hydrocortisone 10 mg b.i.d. continue steroids. (9) Low blood pressure: Code(s): I95.9 - Hypotension, unspecified Status: Acute Assessment and Plan: History of low blood pressure requiring midodrine. No change to her regimen today. Subjective Date/time seen: 04/13/21 09:41 Interval history: Narrative: This is a new pulmonary consult for COPD with hypercarbic respiratory failure 65-year-old woman with a history of chronic atrial fibrillation, congestive heart failure, cirrhosis, Adrenal insufficiency on home steroids, COPD on 2 L nasal cannula oxygen 24 hours a day presented on 04/03 with shortness of breath and Was found to have anemia, fluid overload and was treated with packed red blood cells, diuretics and Bronchodilators. Patient had an echocardiogram demonstrating decreased LV systolic ejection fraction at 42%, grade 2 diastolic dysfunction, severe pulmonary hypertension with an estimated pulmonary arterial sticks out systolic pressure of 67, severely enlarged left atrium, right atrium and right ventricle with moderate right ventricular hypokinesis. Patient also had a apnea link on 2L NC on 04/03 demonstrating a baseline saturation of 99%, lowest saturation 91% an AHI of 33. I was consulted. Baseline: Shamika
[2021-04-13] MEDS: FERROUS SULFATE 324 MG TABLET PO ×2 (12:35→16:42)
--- NOTE | 2021-04-13 16:25 | P.PNIM_ITS ---
Progress Note: A&P Assessment and Plan (1) CHF (congestive heart failure): Qualifiers: Heart failure chronicity: acute on chronic Heart failure type: combined systolic and diastolic Qualified Code(s): I50.43 - Acute on chronic combined systolic (congestive) and diastolic (congestive) heart failure Code(s): I50.9 - Heart failure, unspecified Status: Acute Assessment and Plan: Patient is a 65-year-old woman with a history of COPD, chronic respiratory failure on 2 L of oxygen 13/03, chronic moderate congestive heart failure with recent admission at [facility], who presented to the emergency room with complaints of right-sided chest pain, headache, and increased shortness of breath over the last 2 days. Initial vitals showed she was afebrile, bradycardic at 58 beats per minute, respiratory rate normal at 18, pulse ox 100% on 2 L, blood pressure stable at 113/60. Initial labs showed a macrocytic anemia with a hemoglobin of 6.8, hematocrit 23%, CO2 elevated at 37, elevated creatinine 1.7, BUN 62[place] [address], troponins are flat at 0.03 x3. * ANEMIA- * 2 unit of packed red blood cells on 04/04/21 with improvement of hemoglobin to 8.5, hematocrit 30% * Iron deficiency anemia with low % saturation, smita, and iron. * Ferrous sulfate 325mg PO BID. * Positive occult blood in her stool. * GI consulted and recommends holding off on EGD/colonoscopy and follow up in 3 months. 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 * PPI twice daily. * Acute on chronic diastolic and systolic heart failure - * Cr and BUN more elevated. * PO Bumex 2 mg switched to once a day until nephrology sees patient * No more leg swelling or crackles to lungs. * weights daily * fluid restriction 1500cc * electrolytes and renal function. * History of COPD due to chronic tobacco abuse. * DuoNeb treatments * Dr. Karl Rios who saw the patient and does not believe she is in a COPD exacerbation at this time. * Sputum culture growing Pansensitive Pseudomonas and beta lactamase positive moraxella catarrhalis * Levaquin #3 since receiving Q48hr. will need a full 7 treatments * Continue budesonide inhaled steroid. * Acute on Chronic Hypercarbic Respiratory Failure- * IVENT at bedside with settings programed * Will need to follow up with pulm Continue monitoring fluid status. Fluid restriction. Strict I&O, daily weights. Supplemental oxygen maintain a saturation greater than 90%. Appreciate GI, cardiology and pulmonology input. (2) Acute on chronic renal failure: Code(s): N17.9 - Acute kidney failure, unspecified; N18.9 - Chronic kidney disease, unspecified Status: Acute Assessment and Plan: * creatinine to 2.6 today and BUN at 86. * Consulted Nephrology * Decreased Bumex to once a day * Trend BUN/Cr (3) Anemia: Qualifiers: Anemia type: iron deficiency Iron deficiency anemia type: unspecified iron deficiency Qualified Code(s): D50.9 - Iron deficiency anemia, unspecified Code(s): D64.9 - Anemia, unspecified Status: Acute Assessment and Plan: SEE ABOVE (4) COPD (chronic obstructive pulmonary disease): Code(s): J44.9 - Chronic obstructive pulmonary disease, unspecified Status: Acute Assessment and Plan: SEE ABOVE. (5) Chest pain:
--- NOTE | 2021-04-13 16:25 | PM.IMPN ---
Progress Note: A&P Assessment and Plan (1) CHF (congestive heart failure): Qualifiers: Heart failure chronicity: acute on chronic Heart failure type: combined systolic and diastolic Qualified Code(s): I50.43 - Acute on chronic combined systolic (congestive) and diastolic (congestive) heart failure Code(s): I50.9 - Heart failure, unspecified Status: Acute Assessment and Plan: Patient is a 65-year-old woman with a history of COPD, chronic respiratory failure on 2 L of oxygen 13/03, chronic moderate congestive heart failure with recent admission at [facility], who presented to the emergency room with complaints of right-sided chest pain, headache, and increased shortness of breath over the last 2 days. Initial vitals showed she was afebrile, bradycardic at 58 beats per minute, respiratory rate normal at 18, pulse ox 100% on 2 L, blood pressure stable at 113/60. Initial labs showed a macrocytic anemia with a hemoglobin of 6.8, hematocrit 23%, CO2 elevated at 37, elevated creatinine 1.7, BUN 62[place] [address], troponins are flat at 0.03 x3. ANEMIA- 2 unit of packed red blood cells on 04/04/21 with improvement of hemoglobin to 8.5, hematocrit 30% Iron deficiency anemia with low % saturation, smita, and iron. Ferrous sulfate 325mg PO BID. Positive occult blood in her stool. GI consulted and recommends holding off on EGD/colonoscopy and follow up in 3 months. 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 PPI twice daily. Acute on chronic diastolic and systolic heart failure - Cr and BUN more elevated. PO Bumex 2 mg switched to once a day until nephrology sees patient No more leg swelling or crackles to lungs. weights daily fluid restriction 1500cc electrolytes and renal function. History of COPD due to chronic tobacco abuse. DuoNeb treatments Dr. Karl Rios who saw the patient and does not believe she is in a COPD exacerbation at this time. Sputum culture growing Pansensitive Pseudomonas and beta lactamase positive moraxella catarrhalis Levaquin #3 since receiving Q48hr. will need a full 7 treatments Continue budesonide inhaled steroid. Acute on Chronic Hypercarbic Respiratory Failure- IVENT at bedside with settings programed Will need to follow up with pulm Continue monitoring fluid status. Fluid restriction. Strict I&O, daily weights. Supplemental oxygen maintain a saturation greater than 90%. Appreciate GI, cardiology and pulmonology input. (2) Acute on chronic renal failure: Code(s): N17.9 - Acute kidney failure, unspecified; N18.9 - Chronic kidney disease, unspecified Status: Acute Assessment and Plan: creatinine to 2.6 today and BUN at 86. Consulted Nephrology Decreased Bumex to once a day Trend BUN/Cr (3) Anemia: Qualifiers: Anemia type: iron deficiency Iron deficiency anemia type: unspecified iron deficiency Qualified Code(s): D50.9 - Iron deficiency anemia, unspecified Code(s): D64.9 - Anemia, unspecified Status: Acute Assessment and Plan: SEE ABOVE (4) COPD (chronic obstructive pulmonary disease): Code(s): J44.9 - Chronic obstructive pulmonary disease, unspecified Status: Acute Assessment and Plan: SEE ABOVE. (5) Chest pain: Code(s): R07.9 - Chest pain, unspecified Status: Acute Assessment and Plan: Type 2 MD- non ischemic, probably related to CHF exacerbation, anemia Trops negative 0.034, 0.030, 0.031 Cardiology consulted who state the patient has atypical chest discomfort likely due to CHF. Minimally elevated troponin, flat profile, due to CHF, no evidence of ischemic event or ACS. Denies chest pain at this time
--- NOTE | 2021-04-13 20:19 | PCRCNOTE ---
Window of time for administration has passed. See next scheduled administration.
[2021-04-14] VITALS (10 sets, daily range): BP systolic 107–126; BP diastolic 50–67; PULSE 67–100; RESP 16–22; TEMP 35.7–37.1; O2SAT 94–100
[2021-04-14 05:42] LABS: Hematocrit 28.8 % (37.0-47.0); Hemoglobin 8.3 g/dL (12.0-15.0); Immature Granulocyte Absolute 0.03 K/mm3 (0.00-0.031); Immature Granulocyte Percent A 0.4 % (0-0.5); Mean Corpuscular HGB Conc 28.8 g/dl (32-36); Mean Corpuscular Hemoglobin 28.5 pg (26-34); Mean Platelet Volume 10.7 fl (7.4-10.4); Monocytes Absolute Auto 0.5 K/mm3 (0.1-0.6); Monocytes Percent Auto 6.1 % (2.6-8.5); Neutrophils Absolute Auto 6.2 K/mm3 (1.3-6.7); Neutrophils Percent Auto 79.5 % (45.5-73.1); Platelet Count Result 187 k/mm3 (150-375); Red Blood Count 2.91 M/mm3 (4.2-5.4); Red Cell Distribution Width 15.9 % (11.5-14.5); White Blood Count 7.9 K/mm3 (4.5-10.0)
[2021-04-14 06:21] LABS: Alanine Aminotransferase 17 U/L (4-35); Albumin Level 3.9 g/dL (3.5-5.1); Alkaline Phosphatase 103 U/L (38-126); Aspartate Amino Transferase 33 U/L (14-36); Bilirubin,Total 0.7 mg/dL (0.2-1.3); Blood Urea Nitrogen 102 mg/dL (7-17); Calcium 9.1 mg/dL (8.4-10.2); Carbon Dioxide > 40 mmol/L (22-30); Chloride 88 mmol/L (98-107); Estimated CRCL calculation 26 ml/min; Estimated Glomerular Filt Rate 29; Glucose 125 mg/dL (65-110); Magnesium 1.7 mg/dL (1.6-2.3); Sodium 140 mmol/L (137-145)
[2021-04-14 08:13] LABS: Anisocytosis 1+ (NORMAL); Hypochromasia 1+ (NORMAL); Platelet Estimate Adequate (Adequate)
[2021-04-14] MEDS: ACETAMINOPHEN 500 MG TABLET PO (09:09)
[2021-04-14] MEDS: MIDODRINE HCL 2.5 MG TABLET 5 MG PO ×2 (09:10→13:49)
[2021-04-14] MEDS: POTASSIUM CHLORIDE 20 MEQ TABLET.ER PO (09:10)
[2021-04-14] MEDS: allopurinoL 100 MG TABLET PO (09:11)
[2021-04-14] MEDS: guaiFENesin 12 HR 600 MG TABCR 1200 MG PO ×2 (09:11→20:42)
[2021-04-14] MEDS: FOLIC ACID 1 MG TABLET PO (09:12)
[2021-04-14] MEDS: PANTOPRAZOLE SODIUM IV 40 MG VIAL IV PUSH (09:12)
[2021-04-14] MEDS: METOPROLOL SUCCINATE EXT REL 25 MG TABCR PO (09:12)
[2021-04-14] MEDS: SALINE 0.65% NAS SOLN 44 ML BTL 2 SPRAY NASAL ×3 (09:13→20:42)
--- NOTE | 2021-04-14 09:37 | PCPTNOTE ---
Attempted to see patient for PT at this time, however patient refused. Patient reported her head hurts today and therapy will get nothing out of her.
--- NOTE | 2021-04-14 10:37 | PM.PNCARD ---
Progress Note: A&P Assessment and Plan (1) Acute on chronic diastolic CHF (congestive heart failure): Code(s): I50.33 - Acute on chronic diastolic (congestive) heart failure Status: Acute Assessment and Plan: - Her fluid balance is ~500ml negative for this admission. Continue 2mg Bumex IV BID, d/c metolazone - Cr stable, BUN 73 (59). Will d/c metolazone - LE edema significantly improved - DVT prophylaxis with SCDs - Echo showed moderately reduced LV systolic function with an EF measured at 42%. Grade 2 diastolic dysfunction is present. Severe RV enlargement. Severe biatrial enlargement. Significant PHTN, estimated PA systolic pressure 67 mmHg. Severe tricuspid valve regurgitation. (2) Pulmonary hypertension: Code(s): I27.20 - Pulmonary hypertension, unspecified Status: Acute Assessment and Plan: Also has right heart failure and a history of severe pulmonary hypertension. Denies a history of sleep apnea. Echo results above. (3) COPD (chronic obstructive pulmonary disease): Code(s): J44.9 - Chronic obstructive pulmonary disease, unspecified Status: Acute Assessment and Plan: On home O2. Unfortunately continues to smoke. Appreciate pulmonology recommendations (4) Chronic atrial fibrillation: Code(s): I48.20 - Chronic atrial fibrillation, unspecified Status: Acute Assessment and Plan: Rate controlled with metoprolol succinate 25 mg daily. Eliquis discontinued in January due to severe anemia and GI bleeding. Patient continues to have significant anemia so we will avoid anticoagulation. (5) Chronic kidney disease, stage 3: Code(s): N18.30 - Chronic kidney disease, stage 3 unspecified Status: Acute Assessment and Plan: Daily BMP. Renal function improving (6) Iron deficiency anemia: Code(s): D50.9 - Iron deficiency anemia, unspecified Status: Acute Assessment and Plan: Follow H&H (7) Chest discomfort: Code(s): R07.89 - Other chest pain Status: Acute Assessment and Plan: Has atypical chest discomfort likely due to CHF. Minimally elevated troponin, flat profile, due to CHF, no evidence of ischemic event or ACS. (8) Adrenal insufficiency: Code(s): E27.40 - Unspecified adrenocortical insufficiency Status: Acute Assessment and Plan: Has a longstanding history of adrenal insufficiency treated with hydrocortisone 10 mg b.i.d. continue steroids. (9) Low blood pressure: Code(s): I95.9 - Hypotension, unspecified Status: Acute Assessment and Plan: History of low blood pressure requiring midodrine. No change to her regimen today. Additional Plan Okay for discharge from my perspective. Subjective Date/time seen: 04/14/21 10:37 Interval history: Narrative: This is a new pulmonary consult for COPD with hypercarbic respiratory failure 65-year-old woman with a history of chronic atrial fibrillation, congestive heart failure, cirrhosis, Adrenal insufficiency on home steroids, COPD on 2 L nasal cannula oxygen 24 hours a day presented on 04/03 with shortness of breath and Was found to have anemia, fluid overload and was treated with packed red blood cells, diuretics and Bronchodilators. Patient had an echocardiogram demonstrating decreased LV systolic ejection fraction at 42%, grade 2 diastolic dysfunction, severe pulmonary hypertension with an estimated pulmonary arterial sticks out systolic pressure of 67, severely enlarged left atrium, right atrium and right ventricle with moderate right ventricular hypokinesis. Patient also had a apnea link on 2L NC on 04/03 demonstrating a baseline saturatio
[2021-04-14] MEDS: predniSONE 10 MG TABLET PO (11:07)
[2021-04-14] MEDS: MAGNESIUM SULF 2 GM/WATER 50ML 2 GM/50 ML BAG IVPB (11:09)
--- NOTE | 2021-04-14 11:15 | PCPTNOTE ---
Attempted to see patient for PT at this time, however patient refused due to headache.
--- NOTE | 2021-04-14 13:12 | PCPTNOTE ---
Attempted to see pt for PT session. Pt just received lunch and reports she still has a headache. Pt declined therapy on this date despite education and encouragement. Will check back at a later time as schedule allows and pt is available
[2021-04-14] MEDS: BUMETANIDE 1 MG TABLET 2 MG PO (13:48)
[2021-04-14] MEDS: FERROUS SULFATE 324 MG TABLET PO (13:49)
--- NOTE | 2021-04-14 15:32 | P.DS_ITS ---
DS: Admitting Diagnosis Admitting Diagnosis CHF exacerbation Acute on chronic anemia DS: Discharge Diagnosis Discharge Diagnosis (1) CHF (congestive heart failure): Qualifiers: Heart failure chronicity: acute on chronic Heart failure type: combined systolic and diastolic Qualified Code(s): I50.43 - Acute on chronic combined systolic (congestive) and diastolic (congestive) heart failure Code(s): I50.9 - Heart failure, unspecified Status: Acute Assessment and Plan: Patient is a 65-year-old woman with a history of COPD, chronic respiratory failure on 2 L of oxygen 13/03, chronic moderate congestive heart failure with recent admission at [facility], who presented to the emergency room with complaints of right-sided chest pain, headache, and increased shortness of breath over the last 2 days. Initial vitals showed she was afebrile, bradycardic at 58 beats per minute, respiratory rate normal at 18, pulse ox 100% on 2 L, blood pressure stable at 113/60. Initial labs showed a macrocytic anemia with a hemoglobin of 6.8, hematocrit 23%, CO2 elevated at 37, elevated creatinine 1.7, BUN 62[place] [address], troponins are flat at 0.03 x3. * ANEMIA- * 2 unit of packed red blood cells on 04/04/21 with improvement of hemoglobin to 8.5, hematocrit 30% * Iron deficiency anemia with low % saturation, smita, and iron. * Ferrous sulfate 325mg PO BID. * Positive occult blood in her stool. * GI consulted and recommends holding off on EGD/colonoscopy and follow up in 3 months. 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 * PPI twice daily. * Acute on chronic diastolic and systolic heart failure - * Cr and BUN more elevated. * PO Bumex 2 mg switched to once a day until nephrology sees patient * No more leg swelling or crackles to lungs. * weights daily * fluid restriction 1500cc * electrolytes and renal function. * History of COPD due to chronic tobacco abuse. * DuoNeb treatments * Dr. Karl Rios who saw the patient and does not believe she is in a COPD exacerbation at this time. * Sputum culture growing Pansensitive Pseudomonas and beta lactamase positive moraxella catarrhalis * Levaquin #3 since receiving Q48hr. will need a full 7 treatments * Continue budesonide inhaled steroid. * Acute on Chronic Hypercarbic Respiratory Failure- * IVENT at bedside with settings programed * Will need to follow up with pulm Continue monitoring fluid status. Fluid restriction. Strict I&O, daily weights. Supplemental oxygen maintain a saturation greater than 90%. Appreciate GI, cardiology and pulmonology input. (2) Acute on chronic renal failure: Code(s): N17.9 - Acute kidney failure, unspecified; N18.9 - Chronic kidney disease, unspecified Status: Acute Assessment and Plan: * creatinine to 2.6 today and BUN at 86. * Consulted Nephrology * Decreased Bumex to once a day * Trend BUN/Cr (3) Anemia: Qualifiers: Anemia type: iron deficiency Iron deficiency anemia type: unspecified iron deficiency Qualified Code(s): D50.9 - Iron deficiency anemia, unspecified Code(s): D64.9 - Anemia, unspecified Status: Acute Assessment and Plan: SEE ABOVE (4) COPD (chronic obstructive pulmonary disease): Code(s): J44.9 - Chronic obstructive pulmonary disease, unspecified Status: Acute Assessment and Plan:
--- NOTE | 2021-04-14 15:32 | PM.DS ---
DS: Admitting Diagnosis Admitting Diagnosis CHF exacerbation Acute on chronic anemia DS: Discharge Diagnosis Discharge Diagnosis (1) CHF (congestive heart failure): Qualifiers: Heart failure chronicity: acute on chronic Heart failure type: combined systolic and diastolic Qualified Code(s): I50.43 - Acute on chronic combined systolic (congestive) and diastolic (congestive) heart failure Code(s): I50.9 - Heart failure, unspecified Status: Acute Assessment and Plan: Patient is a 65-year-old woman with a history of COPD, chronic respiratory failure on 2 L of oxygen 13/03, chronic moderate congestive heart failure with recent admission at [facility], who presented to the emergency room with complaints of right-sided chest pain, headache, and increased shortness of breath over the last 2 days. Initial vitals showed she was afebrile, bradycardic at 58 beats per minute, respiratory rate normal at 18, pulse ox 100% on 2 L, blood pressure stable at 113/60. Initial labs showed a macrocytic anemia with a hemoglobin of 6.8, hematocrit 23%, CO2 elevated at 37, elevated creatinine 1.7, B[place] 62, [place] [address], troponins are flat at 0.03 x3. ANEMIA- 2 unit of packed red blood cells on 04/04/21 with improvement of hemoglobin to 8.5, hematocrit 30% Iron deficiency anemia with low % saturation, smita, and iron. Ferrous sulfate 325mg PO BID. Positive occult blood in her stool. GI consulted and recommends holding off on EGD/colonoscopy and follow up in 3 months. 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 PPI twice daily. Acute on chronic diastolic and systolic heart failure - Cr and BUN more elevated. PO Bumex 2 mg switched to once a day until nephrology sees patient No more leg swelling or crackles to lungs. weights daily fluid restriction 1500cc electrolytes and renal function. History of COPD due to chronic tobacco abuse. Renato treatments Dr. Karl Rios who saw the patient and does not believe she is in a COPD exacerbation at this time. Sputum culture growing Pansensitive Pseudomonas and beta lactamase positive moraxella catarrhalis Levaquin #3 since receiving Q48hr. will need a full 7 treatments Continue budesonide inhaled steroid. Acute on Chronic Hypercarbic Respiratory Failure- IVENT at bedside with settings programed Will need to follow up with pulm Continue monitoring fluid status. Fluid restriction. Strict I&O, daily weights. Supplemental oxygen maintain a saturation greater than 90%. Appreciate GI, cardiology and pulmonology input. (2) Acute on chronic renal failure: Code(s): N17.9 - Acute kidney failure, unspecified; N18.9 - Chronic kidney disease, unspecified Status: Acute Assessment and Plan: creatinine to 2.6 today and BUN at 86. Consulted Nephrology Decreased Bumex to once a day Trend BUN/Cr (3) Anemia: Qualifiers: Anemia type: iron deficiency Iron deficiency anemia type: unspecified iron deficiency Qualified Code(s): D50.9 - Iron deficiency anemia, unspecified Code(s): D64.9 - Anemia, unspecified Status: Acute Assessment and Plan: SEE ABOVE (4) COPD (chronic obstructive pulmonary disease): Code(s): J44.9 - Chronic obstructive pulmonary disease, unspecified Status: Acute Assessment and Plan: SEE ABOVE. (5) Chest pain: Code(s): R07.9 - Chest pain, unspecified Status: Acute Assessment and Plan: Type 2 AL- non ischemic, probably related to CHF exacerbation, anemia Trops negative 0.034, 0.030, 0.031 Cardiology consulted who state the patient has atypical chest discomfort likely due to CHF. Minimally elevated troponin, flat
== END 2021-04-15 | disposition home health service (06) | DRG 194 ==
LOC: ANHED 04-03 00:17 → ANH3MED 04-03 00:53
PROVIDERS: Emergency Medicine; Internal Medicine Pulmonary Disease; Nurse Practitioner; Admitting Provider Internal Medicine; Emergency Provider Emergency Medicine; PCP Nurse Practitioner Family; Visit Provider Physician Assistant
DX: I13.0 Hypertensive heart and chronic kidney disease with heart failure and stage 1 through stage 4 chronic kidney disease, or unspecified chronic kidney disease (principal); I50.43 Acute on chronic combined systolic (congestive) and diastolic (congestive) heart failure; J96.21 Acute and chronic respiratory failure with hypoxia; N18.30 Chronic kidney disease, stage 3 unspecified; J96.22 Acute and chronic respiratory failure with hypercapnia; I21.A1 Myocardial infarction type 2; K31.811 Angiodysplasia of stomach and duodenum with bleeding; D62 Acute posthemorrhagic anemia; B96.5 Pseudomonas (aeruginosa) (mallei) (pseudomallei) as the cause of diseases classified elsewhere; N17.9 Acute kidney failure, unspecified; I48.20 Chronic atrial fibrillation, unspecified; J44.9 Chronic obstructive pulmonary disease, unspecified; E27.40 Unspecified adrenocortical insufficiency; K74.60 Unspecified cirrhosis of liver; D50.9 Iron deficiency anemia, unspecified; M10.9 Gout, unspecified; R51.9 Headache, unspecified; I95.9 Hypotension, unspecified; M85.80 Other specified disorders of bone density and structure, unspecified site; F17.210 Nicotine dependence, cigarettes, uncomplicated; Z99.81 Dependence on supplemental oxygen; Z86.73 Personal history of transient ischemic attack (TIA), and cerebral infarction without residual deficits; Z79.01 Long term (current) use of anticoagulants
CPT/HCPCS: 36415; 36430; 36600; 70450; 71045; 71046; 80048; 80053; 80069; 80076; 81479; 82040; 82247; 82248; 82274; 82607; 82728; 82746; 82805; 83010; 83540; 83550; 83615; 83735; 83880; 84155; 84165; 84484; 84550; 85014; 85018; 85025; 85027; 85046; 85610; 85730; 86850; 86870; 86880; 86900; 86901; 86902; 86922; 86970; 86971; 87070; 87077; 87185; 87186; 87205; 93005; 93306; 94002; 94003; 94618; 94640; 94660; 94762; 96361; 96374; 96375; 96376; 97110; 97161; 97166; 97530; 97535; 99285; A9270; C9113; G0378; J3475; J7050; J7512; P9016

== ENCOUNTER 2021-04-29 11:49 | Observation (INO) | payer OTHER, SELFPAY ==
[2021-04-29] VITALS (25 sets, daily range): BP systolic 96–125; BP diastolic 53–109; PULSE 81–108; RESP 16–25; TEMP 36.8–37.4; O2SAT 93–100; BMI 29.6
--- NOTE | ~2021-04-29 | US_ITS ---
EXAMINATION: US venous doppler LE EXAM DATE: 04/30/2021 08:53 INDICATION: Elevated d-dimer. Chest pain. TECHNIQUE: Multiple grayscale, color flow and Doppler images of the lower extremity deep venous syste ms bilaterally were obtained and reviewed. Comparison is made to prior examination from 06/24/2018. FINDINGS: Right side: The right common femoral, femoral and profunda veins demonstrate normal color flow, respi ratory variation, augmentation and compressibility. Compressibility, color flow confirmed within the right popliteal, posterior tibial, peroneal, and greater saphenous veins. Left side: The left common femoral, femoral and profunda veins demonstrate normal color flow, respira tory variation, augmentation and compressibility. Compressibility, color flow confirmed within the l eft popliteal, posterior tibial, peroneal, and greater saphenous veins. IMPRESSION: 1. No lower extremity deep venous thrombosis bilaterally. Reviewed, dictated and finalized at location A.
--- NOTE | ~2021-04-29 | CT_ITS ---
EXAMINATION: CT brain wo con DATE: 04/29/2021 12:36 INDICATION: Dizziness. TECHNIQUE: Computed tomography (CT) of the head was performed without intravenous contrast. The mA wa s adjusted according to patient size. Iterative reconstruction technique was employed. The dose-lengt h product was 605.33 mGy-cm. COMPARISON: Head CT 04/05/2021 FINDINGS: There is no intracranial hemorrhage, acute infarction, or abnormal intracranial mass lesion . There are scattered areas of low attenuation in the cerebral white matter, which is within normal l imits for the patient's age. The ventricles are normal in size. The orbits are normal. There is near complete opacification of left maxillary sinus with thickening and sclerosis of the sinus bo, cons istent with chronic sinusitis. There is mild mucosal thickening in left sphenoid sinus. There is a sm all left mastoid effusion. IMPRESSION: 1. Normal aging brain. 2. Chronic sinusitis. Reviewed, dictated and finalized at location A.
--- NOTE | ~2021-04-29 | XR_ITS ---
EXAMINATION: XR chest 1V portable INDICATION: Chest pain and shortness TECHNIQUE: Portable AP chest at 1207 hours COMPARISON: 04/11/2021 FINDINGS: Cardiomegaly is noted. There are unchanged opacities of the left lung base. No definite ple ural effusion or pneumothorax is identified. IMPRESSION: 1. Stable cardiomegaly. 2. Chronic left basilar airspace opacity, likely atelectasis. Reviewed, dictated and finalized at location B.
--- NOTE | 2021-04-29 11:57 | ECG_ITS ---
Measurements Intervals [place] Rate: 107 P: GA: 0 QRS: 170 QRSD: 146 T: 26 QT: 368 QTc: 493 Interpretive Statements ATRIAL FIBRILLATION WITH RAPID VENTRICULAR RESPONSE VENTRICULAR PREMATURE COMPLEXES RIGHT AXIS DEVIATION INTRAVENTRICULAR CONDUCTION DELAY LOW VOLTAGE- DIFFUSE LEADS POOR R WAVE PROGRESSION, ANTERIOR LEADS BORDERLINE T WAVE ABNORMALITY- INFERIOR LEADS BASELINE WANDER- I, II, AVR, AVF ABNORMAL ECG Electronically Signed On 04-29-2021 12:39:06 CDT by Michel Hare D.O.
--- NOTE | 2021-04-29 12:21 | ED.GENADULT ---
HPI - General Adult General Chief complaint: Dizziness Stated complaint: dizzy Time Seen by Provider: 04/29/21 11:50 Source: patient History of Present Illness HPI narrative: Patient is a 65 y/o female complaining of chest pain starting 4 days ago. She describes her chest discomfort as cramping and rates it as 9/10. Her chest discomfort radiates to hands. There is no known alleviating or exacerbating factor. She also feels SOB and dizzy. She describes her dizziness as feeling of almost passing out. She denies passing out, however. She has chronic SOB due to COPD. She is on home O2. Related Data Home Medications Medication Instructions Recorded Confirmed acetaminophen 500 mg PO Q6H PRN 04/03/21 04/29/21 albuterol sulfate 2 puff INHALATION QID PRN 04/03/21 04/29/21 allopurinol 100 mg PO DAILY PRN 04/03/21 04/29/21 hydrocortisone 10 mg PO BID 04/03/21 04/29/21 metoprolol succinate [Toprol XL] 25 mg PO DAILY 04/03/21 04/29/21 midodrine 5 mg PO TIDWM 04/03/21 04/29/21 pantoprazole 40 mg PO BID 04/03/21 04/29/21 bumetanide 1 mg PO DAILY 04/29/21 04/29/21 ferrous sulfate [FeroSul] 325 mg PO USEASDIRECTD 04/29/21 04/29/21 fluticasone propionate 1 spray INTRANASAL DAILY 04/29/21 04/29/21 loratadine 10 mg PO DAILY 04/29/21 04/29/21 Allergies Allergy/AdvReac Type Severity Reaction Status Date / Time ceftriaxone Allergy Severe Anaphylactic Verified 04/29/21 11:58 Shock Review of Systems Constitutional: Constitutional: Denies chills, Denies fever(s), Denies headache(s) and Denies weakness Eyes: Eyes: Denies blurry vision ENT: Denies headache(s) and Denies neck pain Cardiovascular: Cardiovascular: Reports chest pain and Reports dyspnea Respiratory: Respiratory: Denies cough and Reports dyspnea Gastrointestinal: Gastrointestinal: Denies abdominal pain, Denies diarrhea, Denies nausea and Denies vomiting Genitourinary: Genitourinary: Denies hematuria and Denies dysuria Musculoskeletal: Musculoskeletal: Denies back pain and Denies neck pain Neurologic: Reports dizziness, Denies headache(s) and Denies weakness PMFSH Past Medical History Medical History (Updated 04/29/21 @ 20:58 by Shiela Monzon MD) Abnormal colonoscopy Acute on chronic blood loss anemia Adrenal insufficiency longstanding, takes home steroids AVM (arteriovenous malformation) of stomach, acquired Chronic atrial fibrillation Chronic diastolic CHF (congestive heart failure) Chronic kidney disease, stage 3 Cirrhosis COPD (chronic obstructive pulmonary disease) History of TIA (transient ischemic attack) Iron deficiency anemia endoscopy 01/2021 at [place] showed gastric and colonic angioectasias. 6 units packed cells that admission, Eliquis discontinued. Occult blood in stools Pulmonary hypertension Surgical History Surgical History (Updated 04/29/21 @ 17:13 by Gemma Heath NP) History of esophagogastroduodenoscopy (EGD) Family History Family History (Updated 04/29/21 @ 17:17 by Gemma Heath NP) Other Acute myocardial infarction Mother Lung cancer Hypertension Father Throat cancer Hypertension Sibling Hypertension Sibling Hypertension Sibling Hypertension Grandparent Diabetes mellitus Sibling Diabetes mellitus Daughter Diabetes mellitus Social History Social History (Updated 04/29/21 @ 17:19 by Gemma Heath NP) Social History: She lives with her daughter and grandchildren. Four children but 1, with multiple sclerosis, of an overdose. The patient stated that she is down to about half a pack of cigarettes now. The patient is disabled. The patient's daughter Silvia is her durable power health care attorney for healthcare. The patient desires to be a full code. Smoking packs per day: 1 Smoking cigarettes per day: 20.0 Years smoked: 47 Smoking pack-years: 47.00 Smoking status: Current every day smoker Tobacco type: cigarettes Alcohol intake: never Substance use: never Substance use ty
--- NOTE | 2021-04-29 12:30 | PC.NURSE ---
Pt to CT.
[2021-04-29 12:35] LABS: Immature Granulocyte Absolute 0.01 K/mm3 (0.00-0.031); Immature Granulocyte Percent A 0.3 % (0-0.5); Lymphocytes Absolute Auto 0.94 K/mm3 (0.9-3.2); Lymphocytes Percent Auto 29.9 % (18.3-44.2); Mean Corpuscular HGB Conc 29.5 g/dl (32-36); Mean Corpuscular Hemoglobin 29.2 pg (26-34); Mean Platelet Volume 10.6 fl (7.4-10.4); Monocytes Absolute Auto 0.2 K/mm3 (0.1-0.6); Monocytes Percent Auto 7.6 % (2.6-8.5); Neutrophils Percent Auto 62.2 % (45.5-73.1); Platelet Count Result 103 k/mm3 (150-375); Red Blood Count 2.02 M/mm3 (4.2-5.4); Red Cell Distribution Width 16.5 % (11.5-14.5); White Blood Count 3.1 K/mm3 (4.5-10.0)
[2021-04-29 12:44] LABS: Anion Gap 7 mmol/L (8-16); Blood Urea Nitrogen 85 mg/dL (7-17); Calcium 8.4 mg/dL (8.4-10.2); Carbon Dioxide 29 mmol/L (22-30); Chloride 102 mmol/L (98-107); Estimated CRCL calculation 37 ml/min; Estimated Glomerular Filt Rate 42; Glucose 85 mg/dL (65-110); Potassium 4.2 mmol/L (3.4-5.0); Sodium 138 mmol/L (137-145)
[2021-04-29 12:45] LABS: INR 1.1; Prothrombin Time 14.4 Seconds (11.1-14.7)
[2021-04-29 12:46] LABS: Partial Thromboplastin Time 37.9 SECONDS (22.3-36.8)
[2021-04-29 12:48] LABS: D Dimer 1.86 ug/mL (<0.48)
[2021-04-29 12:55] LABS: Hemoglobin 5.9 g/dL (12.0-15.0)
[2021-04-29 13:06] LABS: Troponin I 0.091 ng/mL (0.000-0.034)
[2021-04-29 15:51] LABS: Troponin I 0.085 ng/mL (0.000-0.034)
--- NOTE | 2021-04-29 16:25 | PC.NURSE ---
This patient, Thelma Johnson, was admitted to IMU Room 206-02. Patient/family oriented to hospital policies and general routines including ID bracelet, bed and alarms, visiting hours, pain management, procedures, bathroom and other care routines, personal items, smoking policy, room service/diet, and visiting hours. Information on how to activate the Rapid Response Team has been discussed. Patient/Family are encouraged to report perceived risks to care and to ask questions if they do not understand what they are told or what they should do.
--- NOTE | 2021-04-29 16:56 | PM.IMHP ---
H&P: HPI History of Present Illness Date/Time: 04/29/21 16:56 this is a 65-year-old female patient who has a history of atrial fibrillation, GI bleed, AVM malformation, and COPD. The patient was just discharged from here on 04/14/2021 when she received 2 units of packed red blood cells. She did see her GI doctor at that time. Patient did not have any endoscopies at that time. The patient has been complaining of being short of breath and having chest pain for last 4 days. 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 The patient stated her chest discomfort is more of a cramping pain and was rating it a 9/10. It radiates to her hands. The patient also feels nauseated and dizzy. She feels like she is going to pass out. She does have chronic shortness of breath due to her COPD. She is on home O2 and uses inhalers. Her EKG was read as atrial fibrillation with rapid ventricular response. Her heart rate was noted to be 107. She is not on any anticoagulation due to her history of GI bleeds. Her H&H is 5.9 and 20.0. She has been ordered 2 units of packed red blood cells. GI specialist has been consulted. The patient stated that she has been having dark stools but she was also placed on iron and she states that is what her stools typically look like. Her D-dimers noted to be 1.86. BUN is 85 and creatinine 1.5 which is improved from her last numbers last month. Troponin 0.091 and 0.085 respectively. Her blood pressure was soft at 105 / 67 and IV fluids were started. The patient is being admitted for observation status on 04/29/2021 Chief Complaint: Chest pain and dizziness Review of Systems Review of Systems: All systems reviewed & are unremarkable except as noted in HPI and below Constitutional: Constitutional: Reports as per HPI and Reports no additional constitutional complaints Eyes: Eyes: Reports as per HPI and Reports no additional eye complaints ENT: Reports system reviewed and no additional complaints, except as documented and Reports Normal hearing present Cardiovascular: Cardiovascular: Reports no additional cardiovascular complaints Respiratory: Respiratory: Reports no additional respiratory complaints and Reports no additional respiratory complaints Gastrointestinal: Gastrointestinal: Reports as per HPI and Reports no additional gastrointestinal complaints Musculoskeletal: Musculoskeletal: Reports no additional musculoskeletal complaints Integumentary/Breasts: Skin/Breast: Reports system reviewed and no additional complaints, except as docu and Reports as per HPI Neurologic: Reports system reviewed and no additional complaints, except as documented, Reports as per HPI and Reports Normal hearing present Psychiatric: Psychiatric: Reports no additional psychiatric complaints and Reports as per HPI Endocrine: Endocrine: Reports no additional endocrine complaints Hematologic/Lymphatic: Hematologic/Lymphatic: Reports no additional hematologic/lymphatic complaints Allergic/Immunologic: Allergic/Immunologic: Reports no additional allergic/immunologic complaints [facility] Past Medical History Medical History (Updated 04/29/21 @ 17:13 by Gemma Heath NP) Abnormal colonoscopy Acute on chronic blood loss anemia Adrenal insufficiency longstanding, takes home steroids AVM (arteriovenous malformation) of stomach, acquired Chronic atrial fibrillation Chronic diastolic CHF (congestive heart failure) Chronic kidney disease, stage 3 Cirrhosis COPD (chronic obstructive pulmonary disease) History of TIA (transient ischemic attack) Iron deficiency anemia endoscopy 01/2021 at [place] showed gastric and colonic angioectasias. 6 units packed cells that admission, Eliquis discontinued. Occult blood in stools Pulmonary hypertension Surgical History Surgical History (Updated 04/29/21 @ 17:13 by Gemma Heath NP) History of esophagogastroduodenoscopy (EGD) Family Histor
[2021-04-29] MEDS: HYDROCORTISONE 10 MG TABLET PO (17:58)
[2021-04-29] MEDS: MIDODRINE HCL 2.5 MG TABLET 5 MG PO (17:58)
[2021-04-29 19:17] LABS: IFOB Positive Control Positive; Immunochemical Fecal Occult Bl Positive (N)
[2021-04-29] MEDS: PANTOPRAZOLE SODIUM IV 40 MG VIAL IV PUSH (20:32)
[2021-04-29 22:22] LABS: Hemoglobin 5.7 g/dL (12.0-15.0)
[2021-04-29 22:23] LABS: Hematocrit 19.1 % (37.0-47.0)
[2021-04-29 22:57] LABS: Troponin I 0.088 ng/mL (0.000-0.034)
[2021-04-29] MEDS: TUBING, BLOOD PLUM PUMP TUBING 1 EACH XX (23:01)
[2021-04-29] MEDS: SODIUM CHLORIDE 0.9% IV 250 ML 30 ML IV CONT (23:01)
[2021-04-30] VITALS (26 sets, daily range): BP systolic 88–130; BP diastolic 52–73; PULSE 69–112; RESP 14–23; TEMP 35.8–36.9; O2SAT 94–100
[2021-04-30] MEDS: LORATADINE 10 MG TABLET PO (10:01)
[2021-04-30] MEDS: BUMETANIDE 1 MG TABLET PO (10:01)
[2021-04-30] MEDS: PANTOPRAZOLE SODIUM IV 40 MG VIAL IV PUSH (10:01)
[2021-04-30] MEDS: MIDODRINE HCL 2.5 MG TABLET 5 MG PO ×2 (10:01→17:10)
[2021-04-30] MEDS: HYDROCORTISONE 10 MG TABLET PO ×2 (10:01→17:10)
[2021-04-30] MEDS: FLUTICASONE PROPIONATE 0.05% NA SPR 16 GM BTL (*BKC) 1 SPRAY NASAL (10:02)
--- NOTE | 2021-04-30 11:05 | PM.IMPN ---
Progress Note: A&P Assessment and Plan (1) Anemia: Qualifiers: Anemia type: unspecified type Qualified Code(s): D64.9 - Anemia, unspecified Code(s): D64.9 - Anemia, unspecified Status: Acute Assessment and Plan: Ongoing dark stools, patient has a history of AVM. GI has been consulted. The patient will get 2 units of packed red blood cells. Patient is npo currently awaiting EGD today, pt is receiving protonix. Fobt is positive. 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 (2) Chest pain: Qualifiers: Chest pain type: unspecified Qualified Code(s): R07.9 - Chest pain, unspecified Code(s): R07.9 - Chest pain, unspecified Status: Resolved (3) CKD (chronic kidney disease): Qualifiers: Chronic kidney disease stage: unspecified stage Qualified Code(s): N18.9 - Chronic kidney disease, unspecified Code(s): N18.9 - Chronic kidney disease, unspecified Status: Chronic Assessment and Plan: Creat is 1.5 appears to be baseline. History of CKD stage 3. (4) Acute on chronic respiratory failure with hypoxia and hypercapnia: Code(s): J96.21 - Acute and chronic respiratory failure with hypoxia; J96.22 - Acute and chronic respiratory failure with hypercapnia Status: Acute Assessment and Plan: Pt to continue on albuterol and Spiriva. Pt sees pulmology here or COPD. (5) Headache: Code(s): R51.9 - Headache, unspecified Status: Inactive (6) AVM (arteriovenous malformation) of stomach, acquired: Code(s): K31.819 - Angiodysplasia of stomach and duodenum without bleeding Status: Acute Assessment and Plan: History of AVM hold anticoagulation, pt is awaiting EGD, cont Iv protonix (7) Occult blood in stools: Code(s): R19.5 - Other fecal abnormalities Status: Acute Assessment and Plan: Pt is positive for FOBT Pt is going for EGD today. (8) Acute on chronic blood loss anemia: Code(s): D62 - Acute posthemorrhagic anemia Status: Acute Assessment and Plan: Sp blood transfusion (9) Smoking addiction: Code(s): F17.200 - Nicotine dependence, unspecified, uncomplicated Status: Acute Assessment and Plan: Smoking cessation adviced, nicotine patch ordered for patient (10) Low blood pressure: Code(s): I95.9 - Hypotension, unspecified Status: Acute Assessment and Plan: Pt is on midodrine for low Bps. Hold BP medications Subjective Date/time seen: 04/30/21 11:05 Interval history: 65-year-old female patient who has a history of atrial fibrillation, GI bleed, AVM malformation, and COPD. Pt received blood last visit but did not see GI yet. Pt having ongoing dark stool. history of AVMs in stomach. Pt is going for EGD today under Gi. Pt also takes iron for anemia. Hb was 5 yesterday. CReat is 1.5. Review of Systems Review of Systems: All systems reviewed & are unremarkable except as noted in HPI and below ROS unobtainable: Yes other (Dark blood stools ) Exam Const: General: cooperative and in distress Nutritional Appearance: overweight and other (pale sclera, pt looks tired and weak. ) Orientation/consciousness: oriented to person HENMT: Head: normal to inspection Resp: Effort & Inspection: no respiratory distress Auscultation: no rhonchi and no wheezes Cardio: Rate: regular rate Rhythm: regular rhythm GI: Inspection: normal to inspection GI Palp: No abdominal tenderness, No Guarding due to palpation present (GI) and No Hepatomegaly present Auscultation: normal bowel sounds Neuro: General: oriented to person Objective Data Vital Signs Vital Signs: Vital Signs - 24 hr 04/29/21 11:49 04/29/21 12:52 04/29/21 12:53 Temperature 36.8 C Pulse Rate 108 H 89 91 Respiratory Rate 18 22 H 21 H Blood Pressure 124/97 H 96/59 L Pulse Oximetry 94 100 04/29/21 12:54 04/29/21 13:01 04/29/21 13:26 Temperature
--- NOTE | 2021-04-30 12:00 | PC.NURSE ---
Patient to GI lab via stretcher.
--- NOTE | 2021-04-30 12:05 | PCOTNOTE ---
Attempted OT evaluation, patiently is currently going off the unit for a procedure, will follow and attempt at later time.
[2021-04-30 12:08] LABS: Basophils Percent Auto 0.3 % (0.2-1.2); Hematocrit 26.3 % (37.0-47.0); Immature Granulocyte Absolute 0.01 K/mm3 (0.00-0.031); Immature Granulocyte Percent A 0.3 % (0-0.5); Lymphocytes Percent Auto 26.8 % (18.3-44.2); Mean Corpuscular HGB Conc 30.4 g/dl (32-36); Mean Corpuscular Hemoglobin 28.5 pg (26-34); Mean Corpuscular Volume 93.6 fl (80-100); Mean Platelet Volume 10.7 fl (7.4-10.4); Monocytes Absolute Auto 0.2 K/mm3 (0.1-0.6); Monocytes Percent Auto 5.7 % (2.6-8.5); Neutrophils Percent Auto 66.9 % (45.5-73.1); Platelet Count Result 101 k/mm3 (150-375); Red Blood Count 2.81 M/mm3 (4.2-5.4); Red Cell Distribution Width 16.8 % (11.5-14.5)
--- NOTE | 2021-04-30 12:16 | WPDANESEPPF ---
Anes - Initial Pre Proc Eval Procedure: Operation Date: 04/30/21 13:30 Proposed Procedures p Esophagogastroduodenoscopy - Stewart Yanez MD Date/Time: 04/30/21 12:16 Surgeon: Sandy Almanza MD Pre Op Diagnosis: chest pain,anemia Patient Data Age: 65 Gender: F Height: 1.63 m Weight: 78.7 kg Last Vital Signs Temp 36.8 C 04/30/21 08:00 Pulse 83 04/30/21 08:00 Resp 14 04/30/21 08:00 BP 120/62 04/30/21 08:00 Pulse Ox 96 04/30/21 09:22 Allergies Allergy/AdvReac Type Severity Reaction Status Date / Time ceftriaxone Allergy Severe Anaphylactic Verified 04/30/21 12:15 Shock Home Medications Medication Instructions Recorded Confirmed Type acetaminophen 500 mg PO Q6H PRN 04/03/21 04/29/21 History albuterol sulfate 2 puff INHALATION QID PRN 04/03/21 04/29/21 History allopurinol 100 mg PO DAILY PRN 04/03/21 04/29/21 History hydrocortisone 10 mg PO BID 04/03/21 04/29/21 History metoprolol succinate [Toprol XL] 25 mg PO DAILY 04/03/21 04/29/21 History midodrine 5 mg PO TIDWM 04/03/21 04/29/21 History pantoprazole 40 mg PO BID 04/03/21 04/29/21 History tiotropium bromide [Spiriva with 1 cap INHALATION QAM 30 Days #1 inh 04/14/21 04/29/21 Rx HandiHaler] bumetanide 1 mg PO DAILY 04/29/21 04/29/21 History ferrous sulfate [FeroSul] 325 mg PO USEASDIRECTD 04/29/21 04/29/21 History fluticasone propionate 1 spray INTRANASAL DAILY 04/29/21 04/29/21 History loratadine 10 mg PO DAILY 04/29/21 04/29/21 History Laboratory Tests 04/29/21 04/29/21 04/29/21 12:26 12:26 12:26 WBC 3.1 K/mm3 L K/mm3 (4.5-10.0) RBC 2.02 M/mm3 L M/mm3 (4.2-5.4) Hgb 5.9 g/dL L* g/dL (12.0-15.0) Hct 20.0 % L* % (37.0-47.0) MCV 99.0 fl fl (80-100) MCH 29.2 pg pg (26-34) MCHC 29.5 g/dl L g/dl (32-36) RDW 16.5 % H % (11.5-14.5) Plt Count 103 k/mm3 L k/mm3 (150-375) MPV 10.6 fl H fl (7.4-10.4) Immature Gran % (Auto) 0.3 % % (0-0.5) Neut % (Auto) 62.2 % % (45.5-73.1) Lymph % (Auto) 29.9 % % (18.3-44.2) Navarro % (Auto) 7.6 % % (2.6-8.5) Eos % (Auto) 0.0 % % (0-4.4) Baso % (Auto) 0.0 % L % (0.2-1.2) Lymph # (Auto) 0.94 K/mm3 K/mm3 (0.9-3.2) [place] # (Auto) 0.2 K/mm3 K/mm3 (0.1-0.6) Eos # (Auto) 0.0 K/mm3 K/mm3 (0-0.3) Baso # (Auto) 0.0 K/mm3 K/mm3 (0.0-0.1) Abs Immat Gran (auto) 0.01 K/mm3 K/mm3 (0.00-0.031) Absolute Neuts (auto) 2.0 K/mm3 K/mm3 (1.3-6.7) Absolute Nucleated RBC 0.0 K/mm3 K/mm3 (0.0-0.012) Nucleated RBC % 0.0 % % (0.0-0.2) PT 14.4 Seconds Seconds (11.1-14.7) INR 1.1 APTT 37.9 SECONDS H SECONDS (22.3-36.8) D-Dimer 1.86 ug/mL H ug/mL (<0.48) Sodium 138 mmol/L mmol/L (137-145) Potassium 4.2 mmol/L mmol/L (3.4-5.0) Chloride 102 mmol/L mmol/L (98-107) Carbon Dioxide 29 mmol/L mmol/L (22-30) Anion Gap 7 mmol/L L mmol/L (8-16) BUN 85 mg/dL H D mg/dL (7-17) Creatinine 1.50 mg/dL H mg/dL (0.7-1.0) Estim Creat Clear Calc 37 ml/min ml/min Estimated GFR 42 L (59 - ) Glucose 85 mg/dL mg/dL (65-110) Lactic Acid Calcium 8.4 mg/dL mg/dL (8.4-10.2) Magnesium Total Bilirubin AST ALT Alkaline Phosphatase Troponin I 0.091 ng/mL H* ng/mL (0.000-0.034) Total Protein Albumin TSH (Reflex) Stl Occult Blood (IFOB) Blood Type Antibody Screen Crossmatch 04/29/21 04/29/21 04/29/21 12:26 14:21 15:21 WBC RBC Hgb Hct MCV MCH
[2021-04-30 12:20] LABS: Lactic Acid Reflex 0.7 mmol/L (0.7-2.1)
[2021-04-30] MEDS: LACTATED RINGERS 1,000 ML 150 ML IV CONT (12:28)
[2021-04-30 12:29] LABS: Alanine Aminotransferase 8 U/L (4-35); Albumin Level 3.5 g/dL (3.5-5.1); Alkaline Phosphatase 129 U/L (38-126); Anion Gap 7 mmol/L (8-16); Aspartate Amino Transferase 32 U/L (14-36); Bilirubin,Total 0.9 mg/dL (0.2-1.3); Blood Urea Nitrogen 61 mg/dL (7-17); Calcium 8.4 mg/dL (8.4-10.2); Carbon Dioxide 31 mmol/L (22-30); Chloride 102 mmol/L (98-107); Estimated CRCL calculation 37 ml/min; Estimated Glomerular Filt Rate 46; Glucose 89 mg/dL (65-110); Magnesium 2.6 mg/dL (1.6-2.3); Potassium 3.8 mmol/L (3.4-5.0); Sodium 140 mmol/L (137-145)
--- NOTE | 2021-04-30 12:57 | PCPTNOTE ---
Attempted PT eval. Pt in EGD. Will try again tomorrow.
--- NOTE | 2021-04-30 13:19 | WPDGICN ---
Assessment and Plan Assessment and plan (1) Acute on chronic blood loss anemia: Code(s): D62 - Acute posthemorrhagic anemia Status: Acute Assessment and Plan: will assess with egd, she had AVM in stomach treated about 2.5 months ago at [facility] and at same time colonoscopy without stigmata of bleeding from colon she is not longer using anticoagulant. (2) Acute on chronic respiratory failure with hypoxia and hypercapnia: Code(s): J96.21 - Acute and chronic respiratory failure with hypoxia; J96.22 - Acute and chronic respiratory failure with hypercapnia Status: Acute Assessment and Plan: more symptomatic given worsening anemia but she already has severe copd with chf/pulmonary htn continue supportive care (3) Acute on chronic diastolic CHF (congestive heart failure): Code(s): I50.33 - Acute on chronic diastolic (congestive) heart failure Status: Acute (4) Adrenal insufficiency: Code(s): E27.40 - Unspecified adrenocortical insufficiency Status: Acute (5) Chronic kidney disease, stage 3: Code(s): N18.30 - Chronic kidney disease, stage 3 unspecified Status: Acute (6) Pulmonary hypertension: Code(s): I27.20 - Pulmonary hypertension, unspecified Status: Acute GI Consult Note Consult date/time: 04/30/21 13:19 Reason for consult: acute on chronic blood loss anemia HPI: Thelma Johnson is a 65 year old female who I met during recent hospitalization when she came with worsening SOB and anemia treated medically, discharged 04/14/21 and did not repeat new endoscopic evaluation. She has multiple comorbidities including diastolic CHF, COPD, iron deficiency anemia, longstanding adrenal insufficiency on home steroids, TIA, AFib on Eliquis (on hold now), pulmonary HTN, chronic kidney disease stage 3, hepatic cirrhosis with recent hospitalization at [facility] ~3 months ago (reviewed records). At [facility] she had EGD/SBE and colonoscopy, found to have stigmata of bleeding from AVM in stomach treated with APC, two non-bleeding AVM in colon treated with apc (had poor colon prep) and eliquis was discontinued. She is here again with worsening shortness of breath and having chest pain for last 4 days. The patient also feels nauseated and dizzy. She says that normally stool is dark because using iron, and she is not using blood thinners anymore. Her Hb was 5.9 and received blood transfusion. She is comfortable now. Review of Systems Constitutional: Constitutional: Reports weakness Eyes: Eyes: Denies blurry vision ENT: Reports Normal hearing present Cardiovascular: Cardiovascular: Reports chest pain Respiratory: Respiratory: Reports dyspnea Gastrointestinal: Gastrointestinal: Reports no additional gastrointestinal complaints Genitourinary: Genitourinary: Denies hematuria Musculoskeletal: Musculoskeletal: Denies neck pain Integumentary/Breasts: Skin/Breast: Denies rash Neurologic: Reports system reviewed and no additional complaints, except as documented Psychiatric: Psychiatric: Reports no additional psychiatric complaints [facility] Past Medical History Medical History Abnormal colonoscopy Acute on chronic blood loss anemia Adrenal insufficiency longstanding, takes home steroids AVM (arteriovenous malformation) of stomach, acquired Chronic atrial fibrillation Chronic diastolic CHF (congestive heart failure) Chronic kidney disease, stage 3 Cirrhosis COPD (chronic obstructive pulmonary disease) History of TIA (transient ischemic attack) Iron deficiency anemia endoscopy 01/2021 at [place] showed gastric and colonic angioectasias. 6 units packed cells that admission, Eliquis discontinued. Occult blood in stools Pulmonary hypertension Surgical History Surgical History History of esophagogastroduodenoscopy (EGD) Family History Family History (Reviewed 04/30/21 @ 1
[2021-04-30] MEDS: BENZOCAINE (*SP) 60 ML SPRAY CAN (HURRICAINE) 1 SPRAY MUCOUS MEM (13:39)
--- NOTE | 2021-04-30 14:30 | PC.NURSE ---
Patient returned to room following EGD.
--- NOTE | 2021-04-30 15:25 | PCPTNOTE ---
Addendum entered by Jacqueline Crespo, PT 04/30/21 15:26: Wrong pt Original Note: Eval orders received, pt in surgery. Will see pt tomorrow.
[2021-04-30] MEDS: PANTOPRAZOLE 40 MG TABLET PO (21:09)
[2021-05-01] VITALS (15 sets, daily range): BP systolic 92–109; BP diastolic 47–83; PULSE 66–89; RESP 16–18; TEMP 36.3–36.9; O2SAT 95–100
[2021-05-01 07:53] LABS: Hematocrit 29.5 % (37.0-47.0); Hemoglobin 8.2 g/dL (12.0-15.0); Mean Corpuscular HGB Conc 27.8 g/dl (32-36); Mean Corpuscular Hemoglobin 29.1 pg (26-34); Mean Corpuscular Volume 104.6 fl (80-100); Mean Platelet Volume 12.3 fl (7.4-10.4); Platelet Count Result 51 k/mm3 (150-375); Red Blood Count 2.82 M/mm3 (4.2-5.4); Red Cell Distribution Width 16.8 % (11.5-14.5); White Blood Count 2.9 K/mm3 (4.5-10.0)
[2021-05-01 08:03] LABS: Anion Gap 10 mmol/L (8-16); Blood Urea Nitrogen 62 mg/dL (7-17); Carbon Dioxide 27 mmol/L (22-30); Chloride 101 mmol/L (98-107); Estimated CRCL calculation 35 ml/min; Estimated Glomerular Filt Rate 42; Glucose 122 mg/dL (65-110); Potassium 4.4 mmol/L (3.4-5.0); Sodium 138 mmol/L (137-145)
[2021-05-01] MEDS: MIDODRINE HCL 2.5 MG TABLET 5 MG PO ×3 (09:03→17:11)
[2021-05-01] MEDS: LORATADINE 10 MG TABLET PO (09:04)
[2021-05-01] MEDS: BUMETANIDE 1 MG TABLET PO (09:04)
[2021-05-01] MEDS: HYDROCORTISONE 10 MG TABLET PO ×2 (09:04→17:11)
[2021-05-01] MEDS: PANTOPRAZOLE 40 MG TABLET PO ×2 (09:04→20:57)
[2021-05-01] MEDS: FLUTICASONE PROPIONATE 0.05% NA SPR 16 GM BTL (*BKC) 1 SPRAY NASAL (09:04)
--- NOTE | 2021-05-01 12:08 | PM.IMPN ---
Progress Note: A&P Assessment and Plan (1) Anemia: Qualifiers: Anemia type: unspecified type Qualified Code(s): D64.9 - Anemia, unspecified Code(s): D64.9 - Anemia, unspecified Status: Acute Assessment and Plan: Ongoing dark stools, patient has a history of AVM. GI has been consulted. Pt is sp EGD yesterday. Hb is 8. Found to have gastric AVM and duodenum AVM. (2) Chest pain: Qualifiers: Chest pain type: unspecified Qualified Code(s): R07.9 - Chest pain, unspecified Code(s): R07.9 - Chest pain, unspecified Status: Resolved (3) CKD (chronic kidney disease): Qualifiers: Chronic kidney disease stage: unspecified stage Qualified Code(s): N18.9 - Chronic kidney disease, unspecified Code(s): N18.9 - Chronic kidney disease, unspecified Status: Chronic Assessment and Plan: Creat is 1.5 appears to be baseline. History of CKD stage 3. (4) Acute on chronic respiratory failure with hypoxia and hypercapnia: Code(s): J96.21 - Acute and chronic respiratory failure with hypoxia; J96.22 - Acute and chronic respiratory failure with hypercapnia Status: Acute Assessment and Plan: Pt to continue on albuterol and Spiriva. Pt sees pulmology here or COPD. (5) Headache: Code(s): R51.9 - Headache, unspecified Status: Inactive (6) AVM (arteriovenous malformation) of stomach, acquired: Code(s): K31.819 - Angiodysplasia of stomach and duodenum without bleeding Status: Acute Assessment and Plan: History of AVM hold anticoagulation, pt is awaiting EGD, cont IV protonix (7) Occult blood in stools: Code(s): R19.5 - Other fecal abnormalities Status: Acute Assessment and Plan: Pt is positive for FOBT Pt is going for EGD today. (8) Acute on chronic blood loss anemia: Code(s): D62 - Acute posthemorrhagic anemia Status: Acute Assessment and Plan: Sp blood transfusion (9) Smoking addiction: Code(s): F17.200 - Nicotine dependence, unspecified, uncomplicated Status: Acute Assessment and Plan: Smoking cessation adviced, nicotine patch ordered for patient (10) Low blood pressure: Code(s): I95.9 - Hypotension, unspecified Status: Acute Assessment and Plan: Pt is on midodrine for low Bps. Hold BP medications, Continue fluids. Subjective Date/time seen: 05/01/21 12:08 Interval history: 65-year-old female patient who has a history of atrial fibrillation, GI bleed, AVM malformation, and COPD. Pt having ongoing dark stool. history of AVMs in stomach. Pt had EGD yesterday, pt has AVM in her stomach and duodenum. Review of Systems Review of Systems: All systems reviewed & are unremarkable except as noted in HPI and below Exam Const: General: alert and awake Nutritional Appearance: overweight Resp: Effort & Inspection: normal respiratory effort and no respiratory distress Auscultation: clear to auscultation bilaterally, no rhonchi and no wheezes Percussion: percussion normal Cardio: Rate: regular rate and tachycardic GI: Inspection: normal to inspection Auscultation: normal bowel sounds Extrem: General: normal to inspection Right upper extremity: normal to inspection Left upper extremity: normal to inspection Right lower extremity: normal to inspection Left lower extremity: normal to inspection Objective Data Vital Signs Vital Signs: Vital Signs - 24 hr 04/30/21 12:15 04/30/21 13:59 04/30/21 14:09 Temperature 35.8 C L Pulse Rate 76 93 88 Respiratory Rate 18 23 H 17 Blood Pressure 101/58 L 95/58 L 88/52 L Pulse Oximetry 96 99 100 04/30/21 14:19 04/30/21 14:30 04/30/21 14:40 Temperature 36.6 C Pulse Rate 76 74 Respiratory Rate 17 22 H Blood Pressure 124/65 130/66 Pulse Oximetry 98 100 100 04/30/21 16:00 04/30/21 18:00 04/30/21 20:00 Temperature 36.7 C 36.4 C L Pulse Rate 77 95 74 Respiratory
--- NOTE | 2021-05-01 13:07 | WPDANESPN ---
Anes - Prog Note Post-Op Date/Time: 05/01/21 13:07 Cardiovascular status: normal Respiratory status: normal Airway patency: baseline Mental status: baseline Post-Op hydration status: normal Vital Signs: Last Vital Signs Temp 36.9 C 05/01/21 12:00 Pulse 77 05/01/21 12:00 Resp 18 05/01/21 12:00 BP 109/83 05/01/21 12:00 Pulse Ox 100 05/01/21 12:00 Pain Score (VAS): 0 I/O: Intake & Output 04/30/21 05/01/21 05/01/21 23:59 07:59 15:59 Intake Total 240 240 Output Total 484 240 459 Balance -112 -981 -019 Laboratory Tests 05/01/21 07:36 05/01/21 07:36 04/30/21 05/01/21 05/01/21 11:54 07:36 07:36 WBC 2.9 L RBC 2.82 L Hgb 8.2 L Hct 29.5 L MCV 104.6 H D MCH 29.1 MCHC 27.8 L RDW 16.8 H Plt Count 51 L MPV 12.3 H Sodium 138 Potassium 4.4 Chloride 101 Carbon Dioxide 27 Anion Gap 10 BUN 62 H Creatinine 1.50 H Estim Creat Clear Calc 35 Estimated GFR 42 L Glucose 122 H Calcium 8.0 L TSH (Reflex) 0.480 Post-procedural complaints: none Patient Feedback: Patient satisfied with anesthetic care.
[2021-05-02] VITALS (12 sets, daily range): BP systolic 100–116; BP diastolic 60–75; PULSE 64–88; RESP 16–22; TEMP 36.3–37.1; O2SAT 97–100
[2021-05-02 08:10] LABS: Hematocrit 25.9 % (37.0-47.0); Hemoglobin 7.7 g/dL (12.0-15.0); Mean Corpuscular HGB Conc 29.7 g/dl (32-36); Mean Corpuscular Hemoglobin 28.4 pg (26-34); Mean Corpuscular Volume 95.6 fl (80-100); Mean Platelet Volume 10.8 fl (7.4-10.4); Platelet Count Result 145 k/mm3 (150-375); Red Blood Count 2.71 M/mm3 (4.2-5.4); Red Cell Distribution Width 16.1 % (11.5-14.5); White Blood Count 2.7 K/mm3 (4.5-10.0)
[2021-05-02 08:28] LABS: Anion Gap 5 mmol/L (8-16); Blood Urea Nitrogen 50 mg/dL (7-17); Calcium 8.1 mg/dL (8.4-10.2); Carbon Dioxide 35 mmol/L (22-30); Chloride 98 mmol/L (98-107); Estimated CRCL calculation 35 ml/min; Estimated Glomerular Filt Rate 42; Glucose 93 mg/dL (65-110); Potassium 3.6 mmol/L (3.4-5.0); Sodium 138 mmol/L (137-145)
[2021-05-02] MEDS: FLUTICASONE PROPIONATE 0.05% NA SPR 16 GM BTL (*BKC) 1 SPRAY NASAL (08:51)
[2021-05-02] MEDS: HYDROCORTISONE 10 MG TABLET PO (08:52)
[2021-05-02] MEDS: MIDODRINE HCL 2.5 MG TABLET 5 MG PO ×2 (08:52→12:53)
[2021-05-02] MEDS: BUMETANIDE 1 MG TABLET PO (08:52)
[2021-05-02] MEDS: LORATADINE 10 MG TABLET PO (08:52)
[2021-05-02] MEDS: PANTOPRAZOLE 40 MG TABLET PO (08:52)
--- NOTE | 2021-05-02 11:08 | PM.DS ---
DS: Admitting Diagnosis Discharge Date 05/02/2021 Admitting Diagnosis Chest pain and dizziness DS: Discharge Diagnosis Discharge Diagnosis (1) Anemia: Qualifiers: Anemia type: unspecified type Qualified Code(s): D64.9 - Anemia, unspecified Code(s): D64.9 - Anemia, unspecified Status: Acute Assessment and Plan: Ongoing dark stools, patient has a history of AVM. GI has been consulted. Pt is sp EGD yesterday. Hb is 8. Found to have 2 gastric AVM and duodenum AVM. Pt had blood transfusion prior to discharge as she was feeling tired and her hb was 7.7. (2) Chest pain: Qualifiers: Chest pain type: unspecified Qualified Code(s): R07.9 - Chest pain, unspecified Code(s): R07.9 - Chest pain, unspecified Status: Resolved (3) CKD (chronic kidney disease): Qualifiers: Chronic kidney disease stage: unspecified stage Qualified Code(s): N18.9 - Chronic kidney disease, unspecified Code(s): N18.9 - Chronic kidney disease, unspecified Status: Chronic Assessment and Plan: Creat is 1.5 appears to be baseline. History of CKD stage 3. (4) Acute on chronic respiratory failure with hypoxia and hypercapnia: Code(s): J96.21 - Acute and chronic respiratory failure with hypoxia; J96.22 - Acute and chronic respiratory failure with hypercapnia Status: Acute Assessment and Plan: Pt to continue on albuterol and Spiriva. Pt sees pulmology here or COPD. (5) AVM (arteriovenous malformation) of stomach, acquired: Code(s): K31.819 - Angiodysplasia of stomach and duodenum without bleeding Status: Acute Assessment and Plan: History of AVM hold anticoagulation, pt is sp EGD, cont oral protonix at home and follow up with Gi MD. (6) Occult blood in stools: Code(s): R19.5 - Other fecal abnormalities Status: Acute Assessment and Plan: See above. (7) Acute on chronic blood loss anemia: Code(s): D62 - Acute posthemorrhagic anemia Status: Acute Assessment and Plan: Sp blood transfusion (8) Smoking addiction: Code(s): F17.200 - Nicotine dependence, unspecified, uncomplicated Status: Acute Assessment and Plan: Smoking cessation adviced, nicotine patch ordered for patient (9) Low blood pressure: Code(s): I95.9 - Hypotension, unspecified Status: Resolved Assessment and Plan: BP is nl on discharge DS: Summary Hospital Course Hospital Course: 65-year-old female patient who has a history of atrial fibrillation, GI bleed, AVM malformation, and COPD. Pt having ongoing dark stool. history of AVMs in stomach. Pt had EGD yesterday, pt has AVM in her stomach and duodenum. Pt felt better, pt had blood fo anaemia and was discharged. Time Spent with Patient Time attestation: Total time spent providing and/or coordinating discharge services: 40 minutes on day of discharge Exam Const: General: cooperative, alert, awake and in distress Nutritional Appearance: overweight and other (pale sclera, pt looks tired and weak. ) Orientation/consciousness: oriented to person HENMT: Head: normal to inspection Resp: Effort & Inspection: normal respiratory effort and no respiratory distress Auscultation: clear to auscultation bilaterally, no rhonchi and no wheezes Percussion: percussion normal Cardio: Rate: regular rate and tachycardic Rhythm: regular rhythm GI: Inspection: normal to inspection Auscultation: normal bowel sounds Neuro: General: oriented to person Extrem: General: normal to inspection Right upper extremity: normal to inspection Left upper extremity: normal to inspection Right lower extremity: normal to inspection Left lower extremity: normal to inspection DS: Data Data Completed and Pending Labs on day of discharge: Labs from last 24 hours 05/02/21 05/02/21 04/29/21 08:03 08:03 14:21 WBC 2.7 L RBC 2.71 L Hgb 7.7 L Hct
[2021-05-02] MEDS: METOPROLOL SUCCINATE EXT REL 25 MG TABCR PO (12:53)
== END 2021-05-02 15:50 | disposition home health service (06) ==
LOC: ANHED 12:03 → ANHIMU 16:29 → ANH2MED 05-04 11:37 → ANHIMU 05-04 11:37
PROVIDERS: Internal Medicine Gastroenterology; Nurse Practitioner; Admitting Provider Hospitalist; Emergency Provider Emergency Medicine; PCP Nurse Practitioner Family; Visit Provider Family Medicine
PROC: 0DJ08ZZ Inspection of Upper Intestinal Tract, Via Natural or Artificial Opening Endoscopic (ICD-10-PCS; CPT 43235; principal; 2021-04-30 13:30)
DX: D62 Acute posthemorrhagic anemia (principal); J96.22 Acute and chronic respiratory failure with hypercapnia; J96.21 Acute and chronic respiratory failure with hypoxia; I50.33 Acute on chronic diastolic (congestive) heart failure; K31.819 Angiodysplasia of stomach and duodenum without bleeding; R07.9 Chest pain, unspecified; I27.20 Pulmonary hypertension, unspecified; R42 Dizziness and giddiness; J44.9 Chronic obstructive pulmonary disease, unspecified; R51.9 Headache, unspecified; R19.5 Other fecal abnormalities; I95.9 Hypotension, unspecified; E27.40 Unspecified adrenocortical insufficiency; N18.30 Chronic kidney disease, stage 3 unspecified; I48.20 Chronic atrial fibrillation, unspecified; D50.9 Iron deficiency anemia, unspecified; K74.60 Unspecified cirrhosis of liver; F17.210 Nicotine dependence, cigarettes, uncomplicated; Z79.51 Long term (current) use of inhaled steroids; Z79.52 Long term (current) use of systemic steroids; Z99.81 Dependence on supplemental oxygen
CPT/HCPCS: 43270; 36415; 36430; 70450; 71045; 80048; 80053; 82274; 83605; 83735; 84443; 84484; 85014; 85018; 85025; 85027; 85380; 85610; 85730; 86850; 86900; 86901; 86920; 93005; 93970; 94640; 96374; 97162; 97165; 99285; A9270; C9113; G0378; G0379; J2704; J7050; J7120; P9016